=== PATIENT | female | born 1980 | race Caucasian/White ===

== ENCOUNTER → 2016-11-24 | Outpatient (CLI) | payer BC ==
[~2016-11-24] MED LIST: /BACL20TA; /BACL20TA OR; /DULO30CA; /LOR25TA PO; /QUET25TA; /ZOLP6ER; ACIPHEX; BUSP30TA; BUSP30TA OR; CALCGRA15 PO; CARA1SUS PO; CIPR750T5 PO; DEPO150I IM; DEPOPROVERA IM; DEPRO PROVERA IM; DETR4CAP; EFFE75CA75; EFFE75CA75 OR; FLAG500T PO; HYCE0.1S PO; HYDR12.56 PO; HYDR25TA6; HYDR25TA6 OR; ISOVUE-M 300 61% 15ML VIAL (Q9967) As Ordered ONE; KLON0.5T OR; KLON1TAB; KLON1TAB OR; LIDO5DIS; LIDO5DIS EX; LIDOCAINE 1% SDV INJ 30 ML VIAL As Ordered ONE; LISI10TA4 PO; LISI20TA PO; LISI20TA5; LISI20TA5 OR; LORT1TAB PO; MONOESSA PO; MORP15TA4 PO; MS C15TA5; MULTIVIT PO; NEUR100C OR; NORCO; NORCO PO; PRIL20CA PO; PRIN10TA PO; SEASONALE; SOMA350T PO; THERGRAN; VESICARE; VIT D 2000 PO; VITA-112 PO; VITA250L PO; XYZA5TAB PO; ZANT150T OR; [UNRECOGNIZED DRUG - CODE]; [UNRECOGNIZED DRUG - OTHER]; [UNRECOGNIZED DRUG - OTHER] TOP; lisinopril/hctz PO; methylPREDNISolone SUSP 40 MG/ML (DEPO-medrol) VIAL (J1030) As Ordered ONE
--- NOTE | 2016-11-24 15:29 | REP ---
Partial sacrum and coccyx series: Two views. History: Pain. Injection procedure. 12 seconds of fluoroscopy time is reported. Findings: A sequence of two fluoroscopically obtained last image hold spot radiographs of the coccyx and sacrum document needle position and contrast injection related to caudal epidural injection procedure. Signed by Randy Martinez MD 11/24/2016 04:34 P
--- NOTE | 2016-11-26 23:57 | ECWPNPC ---
PATIENT NAME: OCTAVIO HANLEY : 1980 GENDER: FEMALE VISIT DATE: 11/24/2016 DISCHARGE DATE: 11/24/16 1543 VISIT LOCKED DATE TIME: PHYSICIAN: DORA AGUILAR PHYSICIAN PAGER NO: TEXT TO [phone] RESOURCE: DORA AGUILAR REASON FOR APPOINTMENT 1. CAUDAL EPIDURAL HISTORY OF PRESENT ILLNESS HISTORY OF PRESENT ILLNESS: PAIN THE PATIENT DESCRIBES THE PAIN... FALL RISK SCREENING: SCREENING :NO FALLS IN THE PAST YEAR CURRENT MEDICATIONS TAKING VITAMIN D 2000 UNIT TABLET 5000UNITS ORALLY ONCE A DAY, NOTES: 11/24/16599 TAKING MULTIVITAMINS 1 TABLET DIRECTED ORALLY DAILY, NOTES: 11/24/16599 TAKING ELIDEL 1 % CREAM 1 APPLICATION A THIN FILM TO AFFECTED AREA EXTERNALLY TWICE A DAY NEEDED, NOTES: NONE LATELY TAKING DEPO-PROVERA 150 MG/ML SUSPENSION 1 INJECTION INTRAMUSCULAR ONCE EVERY 90 DAYS (ALFARO WOMAN), NOTES: DUE IN JANUARY TAKING CALCIUM CITRATE + D 315-250 MG-UNIT TABLET 1 TABLET ORALLY TWICE A DAY, NOTES: 11/24/16599 TAKING VITAMIN B12 100 MCG TABLET ORALLY DAILY, NOTES: 11/24/16599 TAKING VITAMIN C 500 MG CAPSULE ORALLY ONCE A DAY, NOTES: 11/24/16599 TAKING BACLOFEN 20 MG TABLET 1 TABLET WITH FOOD OR MILK ORALLY THREE TIMES A DAY, NOTES: 11/24/16 1130 TAKING NORCO 7.5-325 MG TABLET 1 TABLET NEEDED ORALLY 1-2 Q4-6H MDD6 3MOS SUPPLY CAT D CHRONIC PAIN, NOTES: 11/24/16 1330 1 TAB TAKING SOMA 350 MG TABLET 1 ORALLY TWICE DAILY NEEDED, NOTES: 11/20/16 TAKING KLONOPIN 0.5 MG TABLET 1 TABLET ORALLY/DO NOT FILL EARLY TWICE DAILY NEEDED FOR ANXIETY (MDD:2), NOTES: 11/23/16 2230 TAKING BUSPAR 30 MG TABLET 1 TAB ORALLY TWICE A DAY, NOTES: 11/24/16599 TAKING PRILOSEC 40 MG CAPSULE DELAYED RELEASE 1 CAPSULE ORALLY ONCE A DAY, NOTES: 11/24/16599 TAKING XYZAL 5 MG TABLET 1 TABLET IN THE EVENING ORALLY ONCE A DAY, NOTES: 11/24/16599 TAKING LISINOPRIL 10 MG TABLET 1 TABLET ORALLY ONCE A DAY, NOTES: 2/8/17 0600 TAKING VENLAFAXINE HCL 75 MG TABLET TAKE 2 TABLETS IN THE AM, AND 1 TABLET IN THE PM ORALLY DAILY, NOTES: 11/24/16 0600 NOT-TAKING TRIAMCINOLONE ACETONIDE 0.1 % CREAM 1 APPLICATION SPARINGLY TO AFFECTED AREA EXTERNALLY TWICE DAILY NEEDED MEDICATION LIST REVIEWED AND RECONCILED WITH THE PATIENT PAST MEDICAL HISTORY HTN OBESITY CP DEPRESSION/ANXIETY LOW BACK PAIN HYPERCHOLESTEROLEMIA GERD ALLERGIC RHINITIS SLEEP STUDY 10/29/11 NEG FOR SLEEP APNEA ALLERGIES CELEBREX: FACIAL SWELLING: ALLERGY NAPROXEN: FACIAL SWELLING: ALLERGY SOCIAL HISTORY GENERAL: TOBACCO USE ARE YOU A:NONSMOKER LEARNING BARRIERS / SPECIAL NEEDS ORIENTED TO PLAN OF CARE: PATIENT, PAIN MANAGEMENT PATIENT, ORIENTED TO PLAN OF CARE: PATIENT, PAIN MANAGEMENT PATIENT. NEW PATIENT PAIN DIARY TODAY'S VISITNOTES FROM 0-10, WHAT LEVEL IS YOUR PAIN TODAY?0 PAIN CLINIC PFS, CLERGY, PUBLIC HEALTH REFERRALS PFS REFERRAL NEEDED?NO CLERGY REFERRAL NEEDED?NO PUBLIC HEALTH REFERRAL NEEDED?NO WAS THE PROVIDER NOTIFIED OF ANY PERTINENT INFO?NO PFS REFERRAL NEEDED?NO CLERGY REFERRAL NEEDED?NO PUBLIC HEALTH REFERRAL NEEDED?NO WAS THE PROVIDER NOTIFIED OF ANY PERTINENT INFO?NO REVIEW OF SYSTEMS CONSTITUTIONAL: ANY CHANGE IN YOUR MEDICAL CONDITION? NO . CHILLS NO . FEVER NO . INFECTION: DO YOU HAVE NEW INFECTIONS? NO . DO YOU HAVE HISTORY OF MRSA? NO . MUSCULOSKELETAL: ANY NEW PATTERNS OF PAIN OR NUMBNESS? NO . GASTROENTEROLOGY: ANY NEW CHANGE IN BOWEL CONTROL? NO . GENITOURINARY: ANY NEW CHANGE IN BLADDER CONTROL? NO . IS THERE A CHANCE YOU COULD BE ? NO . HEMATOLOGY/LYMPH: DO YOU TAKE ANY BLOOD THINNERS? (FOR EXAMPLE- COUMADIN, PLAVIX, AGGRENOX, PLATEL, PRADAXA, OR XARELTO) NO . WHEN WAS YOUR LAST DOSE? DATE: TIME: . NEUROLOGY: HAVE YOU FALLEN IN THE PAST 6 MONTHS? NO . ANY NEW EXTREMITY NUMBNESS OR WEAKNESS? NO . CARDIOLOGY: DO YOU HAVE A PACEMAKER OR DEFIBRILLATOR? NO . RESPIRATORY: HAVE YOU BEEN SICK IN THE PAST WEEK? NO . FEVER NO . FLU LIKE SYMPTOMS? NO . COUGH NO . INTEGUMENTARY: DO YOU HAVE ANY RASHES OR OPEN SORES? NO . ALLERGIC/IMMUNO: ARE YOU ALLERGIC TO SHELLFISH OR IV DYE? NO . ANY NEW ALLERGIES? NO . PSYCHIATRIC: DO YOU HAVE THOUGHTS OF HURTING YOURSELF OR SOMEONE ELSE? NO . ARE YOU ABUSED, NEGLECTED, OR IN AN UNSAFE ENVIRONMENT? NO . ENDOCRINOLOGY: ARE YOU DIABETIC? NO . OTHER: DO YOU NEED ANY PRESCRIPTIONS? NO . IF YES, PLEASE LIST: ____ . ANY NEW PROBLEMS WITH YOUR MEDICATIONS? NO . WHEN DID YOU LAST EAT? ____11/24/16 0645 . WHEN DID YOU LAST DRINK? ____11/24/16 1150 . WHAT DID YOU LAST DRINK? ____COFFEE . NAME OF PERSON DRIVING YOU HOME? ____MOTHER . DO YOU HAVE ANY OTHER QUESTIONS OR CONCERNS NO . REVIEWED BY: PROVIDER: . VITAL SIGNS WT 228 LBS, HT 70 IN, BMI 32.71 INDEX, BP 133/71 MM HG, HR 85 /MIN, RR 16 /MIN, TEMP 97.4 F, OXYGEN SAT % 94%, NA INITIALS SC 14:07, REVIEWED BY: MLF. ASSESSMENTS POSTLAMINECTOMY SYNDROME, NOT ELSEWHERE CLASSIFIED - M96.1 (PRIMARY) PROCEDURES PN CAUDAL EPIDURALS PRE PROCEDURE DIAGNOSIS LUMBAR POST LAMINECTOMY PAIN SYNDROME POST PROCEDURE DIAGNOSIS LUMBAR POST LAMINECTOMY PAIN SYNDROME PROCEDURE CAUDAL EPIDURAL STEROID INJECTION UNDER FLUOROSCOPIC GUIDANCE SURGEON DR. DORA AGUILAR SEISMIC INTERPRETER NONE ANESTHESIA LOCAL PRE PROCEDURE NOTE THE PATIENT HAS HISTORY OF CHRONIC LOW BACK PAIN. I EVALUATE THE PATIENT AND REVIEWED THE CHART. I WENT OVER THE RISKS, ALTERNATIVES, AND BENEFITS ASSOCIATED WITH THIS PROCEDURE. THE PATIENT WOULD LIKE TO PROCEED AND GIVE CONSENT TO PERFORMED THE PROCEDURE. THE PATIENT DENIES UNEXPLAINABLE WEIGHT LOSS, FEVER, CHILLS, OR NEW CHANGES IN URINARY OR BOWEL CONTROL DESCRIPTION OF PROCEDURE THE PATIENT WAS BROUGHT TO THE PROCEDURE ROOM AND PLACED IN THE PRONE POSITION. THE LUMBOSACRAL AREA WAS CLEANED WITH BETADINE SOLUTION AND DRAPED ASEPTICALLY. THE PROCEDURE WAS DONE UNDER STERILE CONDITIONS. I CHECKED LATERALITY AND THE LEVEL WHERE THE PROCEDURE WAS GOING TO BE PERFORMED WITH THE PATIENT AND THE SUPPORTING STAFF AT THE MOMENT OF THE TIME OUT IN THE PROCEDURE ROOM. UNDER FLUOROSCOPIC GUIDANCE, THE TARGET POINT WAS SELECTED AT THE EPIDURAL SPACE BELOW THE SACROCOCCYGEAL LIGAMENT. LIDOCAINE 0.5% WAS USE TO NUMB THE SKIN AND THE SUBCUTANEOUS TISSUE BELOW IT. AN EPIDURAL TUOHY NEEDLE, 17-GAUGE, WAS ADVANCED UNDER FLUOROSCOPIC GUIDANCE AND FOLLOWING PATIENT FEEDBACK UNTIL THE EPIDURAL SPACE WAS REACHED 6 CM DEEP INTO THE SKIN BY THE LOSS OF RESISTANCE TECHNIQUE. ISOVUE M DYE 30%, 0.25 ML, WAS INJECTED SHOWING ADEQUATE SPREAD OF THE DYE. THEN, A SOLUTION OF 6 ML OF NORMAL SALINE WITH DEPO-MEDROL 60 MG WAS INJECTED SLOWLY FOLLOWING THE PATIENT FEEDBACK. THERE WAS NO EVIDENCE OF BLOOD, PARESTHESIA OR CEREBROSPINAL FLUID DURING THE PROCEDURE. THE PATIENT WAS SENT TO THE RECOVERY ROOM. THE PATIENT WAS MOVING THE EXTREMITIES AND DOING WELL. THERE WAS NO COMPLICATION DURING THE PROCEDURE. FLUOROSCOPY TIME WAS 12 SECONDS POST PROCEDURE NOTE THE PATIENT WILL BE SEEN IN A FOLLOW UP IN THE NEXT FEW WEEKS. INSTRUCTIONS WERE GIVEN, QUESTIONS WERE ANSWERED, AND THE PATIENT EXPRESSED UNDERSTANDING AND AGREES WITH THE PLAN. I, NICOLE MANN, DOCUMENTED THE ABOVE INFORMATION ACTING A SCRIBE FOR DR. AGUILAR. I, DR. AGUILAR, HAVE REVIEWED THE ABOVE DOCUMENT, SCRIBED BY NICOLE MANN, AND I VERIFY THAT IT IS ACCURATE DIAGNOSTIC IMAGING [facility] FLUORO GUIDE SPINE INJECTION (PAIN)[id number] PROCEDURE CODES 44640 LUMBAR/SACRAL W/ IMAGING 6045F RADXPS IN END [id number] PXD FOLLOW UP 3 WEEKS ELECTRONICALLY SIGNED BY DORA AGUILAR MD ON 11/26/2016 AT 01:38 PM EST DISCLAIMER : THIS IS A VISIT SUMMARY EXTRACTED FROM THE [employer] CHART. IT IS NOT A COPY OF THE [employer] PROGRESS NOTE. MTDD
== END ==
LOC: M PAIN 14:00
PROVIDERS: ATTEND Anesthesiology
DX: G89.29 Other chronic pain (principal); M96.1 Postlaminectomy syndrome, not elsewhere classified; M54.5 Low back pain; G80.9 Cerebral palsy, unspecified; F32.9 Major depressive disorder, single episode, unspecified; K21.9 Gastro-esophageal reflux disease without esophagitis; F41.9 Anxiety disorder, unspecified; I10 Essential (primary) hypertension; E78.00 Pure hypercholesterolemia, unspecified; E66.9 Obesity, unspecified; Z68.32 Body mass index [BMI] 32.0-32.9, adult; J30.89 Other allergic rhinitis; Z88.8 Allergy status to other drugs, medicaments and biological substances; Z79.891 Long term (current) use of opiate analgesic; Z79.899 Other long term (current) drug therapy
CPT/HCPCS: 62323; J1030; Q9967

== ENCOUNTER → 2016-12-22 | Outpatient (CLI) | payer BC ==
[~2016-12-22] MED LIST changes: -ISOVUE-M 300 61% 15ML VIAL (Q9967) As Ordered ONE; -LIDOCAINE 1% SDV INJ 30 ML VIAL As Ordered ONE; -methylPREDNISolone SUSP 40 MG/ML (DEPO-medrol) VIAL (J1030) As Ordered ONE
--- NOTE | 2016-12-22 23:43 | ECWPNPC ---
PATIENT NAME: OCTAVIO HANLEY : 1980 GENDER: FEMALE VISIT DATE: 12/22/2016 DISCHARGE DATE: 12/22/16 0945 VISIT LOCKED DATE TIME: PHYSICIAN: LILLY FALCON PHYSICIAN PAGER NO: TEXT TO [phone] RESOURCE: LILLY FALCON REASON FOR APPOINTMENT 1. POST CAUDAL F/UP HISTORY OF PRESENT ILLNESS HISTORY OF PRESENT ILLNESS: PAIN THE PATIENT DESCRIBES THE PAIN... THE PATIENT DESCRIBES THE PAIN... HERE FOR POST PROCEDURE F/U.HAD CAUDAL EPIDURAL 11-24-16.REPORTS 75% IMPROVEMENT IN PAIN X3 WKS. THAT CONTINUES TODAY. RATING PAIN VAS 4/10.HAS RESPONDED TO CAUDAL EPIDURAL.USES HYDROCODONE 7.5/325 Q4H PRN PAIN ,BACLOFEN 20MG TID AND SOMA 350MG PRN WITH GOOD EFFECT.DESCRIBES PAIN INTERMITTENT SHARP PAIN. FALL RISK SCREENING: SCREENING :NO FALLS IN THE PAST YEAR CURRENT MEDICATIONS TAKING VITAMIN D 2000 UNIT TABLET 5000UNITS ORALLY ONCE A DAY TAKING MULTIVITAMINS 1 TABLET DIRECTED ORALLY DAILY TAKING ELIDEL 1 % CREAM 1 APPLICATION A THIN FILM TO AFFECTED AREA EXTERNALLY TWICE A DAY NEEDED TAKING DEPO-PROVERA 150 MG/ML SUSPENSION 1 INJECTION INTRAMUSCULAR ONCE EVERY 90 DAYS (ALFARO WOMAN) TAKING CALCIUM CITRATE + D 315-250 MG-UNIT TABLET 1 TABLET ORALLY TWICE A DAY TAKING VITAMIN B12 100 MCG TABLET ORALLY DAILY TAKING VITAMIN C 500 MG CAPSULE ORALLY ONCE A DAY TAKING BACLOFEN 20 MG TABLET 1 TABLET WITH FOOD OR MILK ORALLY THREE TIMES A DAY TAKING NORCO 7.5-325 MG TABLET 1 TABLET NEEDED ORALLY 1-2 Q4-6H MDD6 3MOS SUPPLY CAT D CHRONIC PAIN TAKING SOMA 350 MG TABLET 1 ORALLY TWICE DAILY NEEDED TAKING BUSPAR 30 MG TABLET 1 TAB ORALLY TWICE A DAY TAKING PRILOSEC 40 MG CAPSULE DELAYED RELEASE 1 CAPSULE ORALLY ONCE A DAY TAKING XYZAL 5 MG TABLET 1 TABLET IN THE EVENING ORALLY ONCE A DAY TAKING LISINOPRIL 10 MG TABLET 1 TABLET ORALLY ONCE A DAY TAKING VENLAFAXINE HCL 75 MG TABLET TAKE 2 TABLETS IN THE AM, AND 1 TABLET IN THE PM ORALLY DAILY TAKING KLONOPIN 0.5 MG TABLET 1 TABLET ORALLY/DO NOT FILL EARLY TWICE DAILY NEEDED FOR ANXIETY (MDD:2) NOT-TAKING TRIAMCINOLONE ACETONIDE 0.1 % CREAM 1 APPLICATION SPARINGLY TO AFFECTED AREA EXTERNALLY TWICE DAILY NEEDED MEDICATION LIST REVIEWED AND RECONCILED WITH THE PATIENT PAST MEDICAL HISTORY HTN OBESITY CP DEPRESSION/ANXIETY LOW BACK PAIN HYPERCHOLESTEROLEMIA GERD ALLERGIC RHINITIS SLEEP STUDY 10/29/11 NEG FOR SLEEP APNEA ALLERGIES CELEBREX: FACIAL SWELLING: ALLERGY NAPROXEN: FACIAL SWELLING: ALLERGY SOCIAL HISTORY GENERAL: TOBACCO USE ARE YOU A:NONSMOKER LEARNING BARRIERS / SPECIAL NEEDS ORIENTED TO PLAN OF CARE: PATIENT, PAIN MANAGEMENT PATIENT, ORIENTED TO PLAN OF CARE: PATIENT, PAIN MANAGEMENT PATIENT. NEW PATIENT PAIN DIARY TODAY'S VISITNOTES FROM 0-10, WHAT LEVEL IS YOUR PAIN TODAY?0 PAIN CLINIC PFS, CLERGY, PUBLIC HEALTH REFERRALS PFS REFERRAL NEEDED?NO CLERGY REFERRAL NEEDED?NO PUBLIC HEALTH REFERRAL NEEDED?NO WAS THE PROVIDER NOTIFIED OF ANY PERTINENT INFO?NO PFS REFERRAL NEEDED?NO CLERGY REFERRAL NEEDED?NO PUBLIC HEALTH REFERRAL NEEDED?NO WAS THE PROVIDER NOTIFIED OF ANY PERTINENT INFO?NO REVIEW OF SYSTEMS CONSTITUTIONAL: ANY CHANGE IN YOUR MEDICAL CONDITION? NO . RECENT ILLNESS DENIES . CHILLS NO . FEVER NO . WEIGHT LOSS DENIES . INFECTION: DO YOU HAVE NEW INFECTIONS? NO . DO YOU HAVE HISTORY OF MRSA? NO . MUSCULOSKELETAL: ANY NEW PATTERNS OF PAIN OR NUMBNESS? NO . GASTROENTEROLOGY: ANY NEW CHANGE IN BOWEL CONTROL? NO . GENITOURINARY: ANY NEW CHANGE IN BLADDER CONTROL? NO . IS THERE A CHANCE YOU COULD BE ? NO . HEMATOLOGY/LYMPH: DO YOU TAKE ANY BLOOD THINNERS? (FOR EXAMPLE- COUMADIN, PLAVIX, AGGRENOX, PLATEL, PRADAXA, OR XARELTO) NO . WHEN WAS YOUR LAST DOSE? DATE: TIME: . NEUROLOGY: HAVE YOU FALLEN IN THE PAST 6 MONTHS? NO . ANY NEW EXTREMITY NUMBNESS OR WEAKNESS? NO . CARDIOLOGY: DO YOU HAVE A PACEMAKER OR DEFIBRILLATOR? NO . CHEST PAIN DENIES . SHORTNESS OF BREATH DENIES . RESPIRATORY: HAVE YOU BEEN SICK IN THE PAST WEEK? NO . FEVER NO . FLU LIKE SYMPTOMS? NO . COUGH NO, DENIES . SHORTNESS OF BREATH DENIES . INTEGUMENTARY: DO YOU HAVE ANY RASHES OR OPEN SORES? NO . ALLERGIC/IMMUNO: ARE YOU ALLERGIC TO SHELLFISH OR IV DYE? NO . ANY NEW ALLERGIES? NO . PSYCHIATRIC: DO YOU HAVE THOUGHTS OF HURTING YOURSELF OR SOMEONE ELSE? NO . ARE YOU ABUSED, NEGLECTED, OR IN AN UNSAFE ENVIRONMENT? NO . ENDOCRINOLOGY: ARE YOU DIABETIC? NO . OTHER: DO YOU NEED ANY PRESCRIPTIONS? YES NORCO , BACLOFEN AND SOMA . IF YES, PLEASE LIST: ____ . ANY NEW PROBLEMS WITH YOUR MEDICATIONS? NO . WHEN DID YOU LAST EAT? ____ . WHEN DID YOU LAST DRINK? ____ . WHAT DID YOU LAST DRINK? ____ . NAME OF PERSON DRIVING YOU HOME? ____ . DO YOU HAVE ANY OTHER QUESTIONS OR CONCERNS NO . REVIEWED BY: PROVIDER: LILLY AGUILAR . VITAL SIGNS WT 221 LBS, HT 70 IN, BMI 31.71 INDEX, BP 140/83 MM HG, HR 91 /MIN, RR 16 /MIN, TEMP 98.2 F, OXYGEN SAT % 96, NA INITIALS TL 0906. EXAMINATION GENERAL EXAMINATION: LUNGS:LUNG SOUNDS ARE CLEAR. HEART:HEART RATE REGULAR. MUSCULOSKELETAL:*, MUSCLE STRENGTH TESTING 5/5 BLE.PARATHESIAS TO LIGHT TOUCH RIGHT LEG.NORMAL SENSATION LIGHT TOUCH LEFT LEG., PALPATION: NEGATIVE FOR PAIN OVER L/S SPINE. NEGATIVE FOR PAIN OVER L/S PARASPINALS. DIAGNOSTIC: . ASSESSMENTS POST LAMINECTOMY SYNDROME - M96.1 (PRIMARY) SACROILIAC DYSFUNCTION - M53.3 CHRONIC PRESCRIPTION OPIATE USE - Z79.899 TREATMENT POST LAMINECTOMY SYNDROME REFILL NORCO TABLET, 7.5-325 MG, 1 TABLET NEEDED, ORALLY, 1-2 Q4-6H MDD6 3MOS SUPPLY CAT D CHRONIC PAIN, 90 DAY(S), 540, REFILLS 0 REFILL SOMA TABLET, 350 MG, 1, ORALLY, BID PRN MDD2 3MOS SUPPLY CATD CHRONIC PAIN, 90 DAY(S), 180, REFILLS 0 REFILL BACLOFEN TABLET, 20 MG, 1 TABLET WITH FOOD OR MILK, ORALLY, THREE TIMES A DAY, 90 DAY(S), 270 TABLET, REFILLS 0 CAUDAL/LUMBAR EPIDURALLILLY FALCON 12/22/2016 9:37:35 AM > CAUDAL EPIDURAL NOTES: ISTOP REGISTRY REVIEWED AND DEMNOSTRATES COMPLLIANCE. BRINGS IN MEDICATIONS WHICH IS APPROPRIATE FOR WHAT WAS DISPENSED. RECENT URINE TOXICOLOGY REVIEWED. NO UNAUTHORIZED MEDICATIONS. NO ILLICIT SUBSTANCES AND PRESCRIBED MEDICATIONS WERE PRESENT. , RISKS AND BENEFITS OF NARCOTIC/OPIOD MEDICATIONS WERE REVIEWED WITH PATIENT - THIS INCLUDES BUT IS NOT LIMITED TO RISK OF DEPENDANCE/DEVELOPMENT OF ADDICTION, MOOD DISTURBANCE AND DEPRESSION, OSTEOPOROSIS, HORMONAL AND LABIDAL CHANGES, RESPIRATORY DEPRESSION AND . PATIENT IS ADVISED NOT TO DRIVE WHILE ON THESE MEDICATIONS. PROCEDURE CODES FA211 ESTABILISHED PATIENT [facility] FAC[facility] CHARGE DISPOSITION & COMMUNICATION FOLLOW UP 2WK POST (REASON: CAUDAL EPIDURAL) ELECTRONICALLY SIGNED BY JEFF WHITTINGTON ON 12/22/2016 AT 01:14 PM EST DISCLAIMER : THIS IS A VISIT SUMMARY EXTRACTED FROM THE [employer] CHART. IT IS NOT A COPY OF THE [employer] PROGRESS NOTE. ANNMARIE
== END ==
LOC: M PAIN 09:00
PROVIDERS: ATTEND Nurse Practitioner Family
DX: Z09 Encounter for follow-up examination after completed treatment for conditions other than malignant neoplasm (principal); G89.29 Other chronic pain; M96.1 Postlaminectomy syndrome, not elsewhere classified; M53.3 Sacrococcygeal disorders, not elsewhere classified; I10 Essential (primary) hypertension; E66.9 Obesity, unspecified; Z68.31 Body mass index [BMI] 31.0-31.9, adult; G80.9 Cerebral palsy, unspecified; F32.9 Major depressive disorder, single episode, unspecified; F41.9 Anxiety disorder, unspecified; E78.00 Pure hypercholesterolemia, unspecified; K21.9 Gastro-esophageal reflux disease without esophagitis; J30.89 Other allergic rhinitis; Z88.8 Allergy status to other drugs, medicaments and biological substances; Z79.891 Long term (current) use of opiate analgesic; Z79.899 Other long term (current) drug therapy

== ENCOUNTER → 2017-02-16 | Outpatient (CLI) | payer BC ==
[~2017-02-16] MED LIST changes: +BUPIVACAINE HCL 0.25% 30 ML VIAL As Ordered ONE; +ISOVUE-M 300 61% 15ML VIAL (Q9967) As Ordered ONE; +LIDOCAINE 1% SDV INJ 30 ML VIAL As Ordered ONE; +TRIAMCINOLONE ACETONIDE SUSP 40 MG/ML VIAL (J3301) As Ordered ONE
--- NOTE | 2017-02-16 15:48 | REP ---
FLUOROSCOPIC GUIDANCE: The images were reviewed with Dr. Burrows. The patient has a history of low back pain. The portable C-arm was provided in the OR for Dr. English for fluoroscopic guidance. Two intraoperative fluoroscopic spot films were obtained for needle placement verification for bilateral SI joint injection. The films are on the PACs system and are available for review. 29 seconds of fluoroscopic time was utilized for this procedure. Reviewed by VIDAL Maria 02/16/2017 04:16 PEdited and Signed by Pankaj Burrows MD 02/16/2017 04:42 P
--- NOTE | 2017-02-20 23:51 | ECWPNPC ---
PATIENT NAME: OCTAVIO HANLEY : 1980 GENDER: FEMALE VISIT DATE: 02/16/2017 DISCHARGE DATE: 02/16/17 1120 VISIT LOCKED DATE TIME: PHYSICIAN: DORA AGUILAR PHYSICIAN PAGER NO: TEXT TO [phone] RESOURCE: DORA AGUILAR REASON FOR APPOINTMENT 1. CAUDAL HISTORY OF PRESENT ILLNESS HISTORY OF PRESENT ILLNESS: PAIN THE PATIENT DESCRIBES THE PAIN... FALL RISK SCREENING: SCREENING :NO FALLS IN THE PAST YEAR CURRENT MEDICATIONS TAKING VITAMIN D 2000 UNIT TABLET 5000UNITS ORALLY ONCE A DAY, NOTES: 02-16-17599 TAKING MULTIVITAMINS 1 TABLET DIRECTED ORALLY DAILY, NOTES: 02-16-17599 TAKING ELIDEL 1 % CREAM 1 APPLICATION A THIN FILM TO AFFECTED AREA EXTERNALLY TWICE A DAY NEEDED, NOTES: NONE TAKING DEPO-PROVERA 150 MG/ML SUSPENSION 1 INJECTION INTRAMUSCULAR ONCE EVERY 90 DAYS (ALFARO WOMAN), NOTES: DUE IN MARCH TAKING CALCIUM CITRATE + D 315-250 MG-UNIT TABLET 1 TABLET ORALLY TWICE A DAY, NOTES: 02-16-17599 TAKING VITAMIN B12 100 MCG TABLET ORALLY DAILY, NOTES: 02-16-17599 TAKING VITAMIN C 500 MG CAPSULE ORALLY ONCE A DAY, NOTES: 02-16-17599 TAKING BUSPAR 30 MG TABLET 1 TAB ORALLY TWICE A DAY, NOTES: 02-16-17599 TAKING PRILOSEC 40 MG CAPSULE DELAYED RELEASE 1 CAPSULE ORALLY ONCE A DAY, NOTES: 02-15-172199 TAKING XYZAL 5 MG TABLET 1 TABLET IN THE EVENING ORALLY ONCE A DAY, NOTES: 02-15-172199 TAKING LISINOPRIL 10 MG TABLET 1 TABLET ORALLY ONCE A DAY, NOTES: 02-16-17599 TAKING VENLAFAXINE HCL 75 MG TABLET TAKE 2 TABLETS IN THE AM, AND 1 TABLET IN THE PM ORALLY DAILY, NOTES: 02-16-17599 TAKING NORCO 7.5-325 MG TABLET 1 TABLET NEEDED ORALLY 1-2 Q4-6H MDD6 3MOS SUPPLY CAT D CHRONIC PAIN, NOTES: 02-16-17829 TAKING SOMA 350 MG TABLET 1 ORALLY BID PRN MDD2 3MOS SUPPLY CATD CHRONIC PAIN, NOTES: NONE RECENT TAKING BACLOFEN 20 MG TABLET 1 TABLET WITH FOOD OR MILK ORALLY THREE TIMES A DAY, NOTES: 02-16-17599 TAKING KLONOPIN 0.5 MG TABLET 1 TABLET ORALLY/DO NOT FILL EARLY TWICE DAILY NEEDED FOR ANXIETY (MDD:2), NOTES: 02-15-172199 NOT-TAKING TRIAMCINOLONE ACETONIDE 0.1 % CREAM 1 APPLICATION SPARINGLY TO AFFECTED AREA EXTERNALLY TWICE DAILY NEEDED MEDICATION LIST REVIEWED AND RECONCILED WITH THE PATIENT PAST MEDICAL HISTORY HTN OBESITY CP DEPRESSION/ANXIETY LOW BACK PAIN HYPERCHOLESTEROLEMIA GERD ALLERGIC RHINITIS SLEEP STUDY 10/29/11 NEG FOR SLEEP APNEA ALLERGIES CELEBREX: FACIAL SWELLING: ALLERGY NAPROXEN: FACIAL SWELLING: ALLERGY REVIEW OF SYSTEMS CONSTITUTIONAL: ANY CHANGE IN YOUR MEDICAL CONDITION? NO . CHILLS NO . FEVER NO . INFECTION: DO YOU HAVE NEW INFECTIONS? NO . DO YOU HAVE HISTORY OF MRSA? NO . MUSCULOSKELETAL: ANY NEW PATTERNS OF PAIN OR NUMBNESS? NO . GASTROENTEROLOGY: ANY NEW CHANGE IN BOWEL CONTROL? NO . GENITOURINARY: ANY NEW CHANGE IN BLADDER CONTROL? NO . IS THERE A CHANCE YOU COULD BE ? NO . HEMATOLOGY/LYMPH: DO YOU TAKE ANY BLOOD THINNERS? (FOR EXAMPLE- COUMADIN, PLAVIX, AGGRENOX, PLATEL, PRADAXA, OR XARELTO) NO . WHEN WAS YOUR LAST DOSE? DATE: TIME: . NEUROLOGY: HAVE YOU FALLEN IN THE PAST 6 MONTHS? NO . ANY NEW EXTREMITY NUMBNESS OR WEAKNESS? NO . CARDIOLOGY: DO YOU HAVE A PACEMAKER OR DEFIBRILLATOR? NO . RESPIRATORY: HAVE YOU BEEN SICK IN THE PAST WEEK? NO . FEVER NO . FLU LIKE SYMPTOMS? NO . COUGH NO . INTEGUMENTARY: DO YOU HAVE ANY RASHES OR OPEN SORES? NO . ALLERGIC/IMMUNO: ARE YOU ALLERGIC TO SHELLFISH OR IV DYE? NO . ANY NEW ALLERGIES? NO . PSYCHIATRIC: DO YOU HAVE THOUGHTS OF HURTING YOURSELF OR SOMEONE ELSE? NO . ARE YOU ABUSED, NEGLECTED, OR IN AN UNSAFE ENVIRONMENT? NO . ENDOCRINOLOGY: ARE YOU DIABETIC? NO . OTHER: DO YOU NEED ANY PRESCRIPTIONS? NO . IF YES, PLEASE LIST: ____ . ANY NEW PROBLEMS WITH YOUR MEDICATIONS? NO . WHEN DID YOU LAST EAT? 02-15-17 7:45 PM . WHEN DID YOU LAST DRINK? 02-16-17 5:50 AM . WHAT DID YOU LAST DRINK? WATER WITH MEDS . NAME OF PERSON DRIVING YOU HOME? PAOLA-SHERI- MOTHER . DO YOU HAVE ANY OTHER QUESTIONS OR CONCERNS , &QUOT;TODAY I AM EXPERIENCING &QUOT;OLD WOMAN&QUOT; BACK SYMPTOMS ALONG WITH RIGHT HIP AND RIGHT SIATIC ISSUES. NOT SURE IF BILATERAL SIJS VERSUS CAUDAL WOULD BE BENEFICIAL?&QUOT; . REVIEWED BY: PROVIDER: . VITAL SIGNS WT 226.0 LBS, HT 70 IN, BMI 32.42 INDEX, BP 152/81 MM HG, HR 92 /MIN, RR 18 /MIN, TEMP 97.9 F, OXYGEN SAT % 96, NA INITIALS AW 0908, REVIEWED BY: CM. ASSESSMENTS SACROILIITIS, NOT ELSEWHERE CLASSIFIED - M46.1 (PRIMARY) PROCEDURES PN SI PRE PROCEDURE DIAGNOSIS SACROILIITIS, SACROILIAC JOINT DYSFUNCTION POST PROCEDURE DIAGNOSIS SACROILIITIS, SACROILIAC JOINT DYSFUNCTION PROCEDURE BILATERAL SACROILIAC JOINT BLOCK SURGEON DR. DORA AGUILAR SOFTWARE QUALITY ASSURANCE ANALYST NONE ANESTHESIA LOCAL PRE PROCEDURE NOTE PATIENT WITH HISTORY OF CHRONIC LOW BACK PAIN. I EVALUATED THE PATIENT AND REVIEWED THE CHART. I WENT OVER THE RISKS, ALTERNATIVES, AND BENEFITS ASSOCIATED WITH THIS PROCEDURE. THE PATIENT WOULD LIKE TO PROCEED AND GAVE CONSENT TO PERFORM THE PROCEDURE. THE PATIENT DENIES UNEXPLAINABLE WEIGHT LOSS, FEVER, CHILLS, OR NEW CHANGES IN URINARY OR BOWEL CONTROL DESCRIPTION OF PROCEDURE THE PATIENT WAS BROUGHT TO THE PROCEDURE ROOM AND PLACED IN THE PRONE POSITION. THE LUMBOSACRAL AREA WAS CLEANED WITH CHLORAPREP SOLUTION AND DRAPED ASEPTICALLY. THE PROCEDURE WAS DONE UNDER STERILE CONDITIONS. I CHECKED LATERALITY AND THE LEVEL WHERE THE PROCEDURE WAS GOING TO BE PERFORMED WITH THE PATIENT AND THE SUPPORTING STAFF AT THE MOMENT OF THE TIME OUT IN THE PROCEDURE ROOM. UNDER FLUOROSCOPIC GUIDANCE, TARGET POINT WAS SELECTED AT THE LOWER BORDER OF THE RIGHT AND LEFT SACROILIAC JOINT. TARGET POINT WAS SELECTED AFTER MEDIAL ROTATION AND TILT OF THE MAGNIFIER OF THE C-ARM. LIDOCAINE WAS USED TO NUMB THE SKIN AND SUBCUTANEOUS TISSUE BELOW IT. A SPINAL NEEDLE, 22-GAUGE, WAS ADVANCED UNDER FLUOROSCOPIC GUIDANCE AND FOLLOWING PATIENT FEEDBACK UNTIL THE TARGET AREA WAS TOUCHED. THE POSITION OF THE NEEDLE WAS VERIFIED WITH AP AND LATERAL VIEWS. AFTER PROPER POSITION OF THE NEEDLE WAS ACHIEVED, ISOVUE M DYE 30%, 0.25 ML, WAS INJECTED SHOWING SPREAD OF THE DYE. THEN, A SOLUTION OF 20 MG OF KENALOG WAS INJECTED IN RIGHT JOINT WITH 3 ML OF BUPIVACAINE 0.125%. THERE WAS NO EVIDENCE OF BLOOD, PARESTHESIA OR CEREBROSPINAL FLUID DURING THE PROCEDURE. THE PATIENT WAS SENT TO THE RECOVERY ROOM. THE PATIENT WAS MOVING THE EXTREMITIES AND DOING WELL. THERE WAS NO COMPLICATION DURING THE PROCEDURE. FLUOROSCOPY TIME WAS 29 SECONDS POST PROCEDURE NOTE THE PATIENT WILL BE SEEN IN A FOLLOW UP IN THE NEXT FEW WEEKS. INSTRUCTIONS WERE GIVEN, QUESTIONS WERE ANSWERED, AND THE PATIENT EXPRESSED UNDERSTANDING AND AGREED WITH THE PLAN. I, NICOLE MANN, DOCUMENTED THE ABOVE INFORMATION ACTING A SCRIBE FOR DR. AGUILAR. I HAVE REVIEWED THE ABOVE DOCUMENT, WRITTEN BY NICOLE BRITO AND I VERIFY THAT IT IS [facility] DI[facility]NOST[facility] IMAG[facility] FLUORO GUIDANCE (PAIN)[id number] PROCEDURE CODES 03690 INJECT SACROILIAC JOINT 6045F RADXPS IN END [id number] PXD DISPOSITION & COMMUNICATION FOLLOW UP 3 WEEKS ELECTRONICALLY SIGNED BY DORA AGUILAR MD ON 02/20/2017 AT 04:58 PM EDT DISCLAIMER : THIS IS A VISIT SUMMARY EXTRACTED FROM THE [employer] CHART. IT IS NOT A COPY OF THE [employer] PROGRESS NOTE. MTDJake
== END ==
LOC: M PAIN 09:00
PROVIDERS: ATTEND Anesthesiology
DX: G89.29 Other chronic pain (principal); M46.1 Sacroiliitis, not elsewhere classified; I10 Essential (primary) hypertension; E66.9 Obesity, unspecified; F32.9 Major depressive disorder, single episode, unspecified; F41.9 Anxiety disorder, unspecified; M54.5 Low back pain; E78.00 Pure hypercholesterolemia, unspecified; K21.9 Gastro-esophageal reflux disease without esophagitis; J30.9 Allergic rhinitis, unspecified; Z88.6 Allergy status to analgesic agent; Z88.8 Allergy status to other drugs, medicaments and biological substances; Z79.891 Long term (current) use of opiate analgesic; Z79.899 Other long term (current) drug therapy
CPT/HCPCS: G0260; J3301; Q9967

== ENCOUNTER → 2017-03-22 | Outpatient (CLI) | payer BC ==
[~2017-03-22] MED LIST changes: -BUPIVACAINE HCL 0.25% 30 ML VIAL As Ordered ONE; -ISOVUE-M 300 61% 15ML VIAL (Q9967) As Ordered ONE; -LIDOCAINE 1% SDV INJ 30 ML VIAL As Ordered ONE; -TRIAMCINOLONE ACETONIDE SUSP 40 MG/ML VIAL (J3301) As Ordered ONE
--- NOTE | 2017-03-23 00:09 | ECWPNPC ---
PATIENT NAME: OCTAVIO HANLEY : 1980 GENDER: FEMALE VISIT DATE: 03/22/2017 DISCHARGE DATE: 03/22/17 1026 VISIT LOCKED DATE TIME: PHYSICIAN: LILLY FALCON PHYSICIAN PAGER NO: TEXT RP [phone] RESOURCE: LILLY FALCON REASON FOR APPOINTMENT 1. POST PROCEDURE HISTORY OF PRESENT ILLNESS HISTORY OF PRESENT ILLNESS: PAIN THE PATIENT DESCRIBES THE PAIN... THE PATIENT DESCRIBES THE PAIN... THE PATIENT DESCRIBES THE PAIN... HERE FOR POST PROCEDURE F/U.HAD BILAT. SIJ 02-16-17.REPORTS 75% IMPROVEMENT IN PAIN X3 WKS. THAT CONTINUES TODAY. RATING PAIN VAS 5/10..USES HYDROCODONE 7.5/325 Q4H PRN PAIN ,BACLOFEN 20MG TID AND SOMA 350MG PRN WITH GOOD EFFECT.DESCRIBES PAIN INTERMITTENT SHARP PAIN. FALL RISK SCREENING: SCREENING :NO FALLS IN THE PAST YEAR CURRENT MEDICATIONS TAKING VITAMIN D 2000 UNIT TABLET 5000UNITS ORALLY ONCE A DAY TAKING MULTIVITAMINS 1 TABLET DIRECTED ORALLY DAILY TAKING ELIDEL 1 % CREAM 1 APPLICATION A THIN FILM TO AFFECTED AREA EXTERNALLY TWICE A DAY NEEDED TAKING DEPO-PROVERA 150 MG/ML SUSPENSION 1 INJECTION INTRAMUSCULAR ONCE EVERY 90 DAYS ([employer] WOMAN) TAKING CALCIUM CITRATE + D 315-250 MG-UNIT TABLET 1 TABLET ORALLY TWICE A DAY TAKING VITAMIN B12 100 MCG TABLET ORALLY DAILY TAKING VITAMIN C 500 MG CAPSULE ORALLY ONCE A DAY TAKING BUSPAR 30 MG TABLET 1 TAB ORALLY TWICE A DAY TAKING PRILOSEC 40 MG CAPSULE DELAYED RELEASE 1 CAPSULE ORALLY ONCE A DAY TAKING VENLAFAXINE HCL 75 MG TABLET TAKE 2 TABLETS IN THE AM, AND 1 TABLET IN THE PM ORALLY DAILY TAKING NORCO 7.5-325 MG TABLET 1 TABLET NEEDED ORALLY 1-2 Q4-6H MDD6 3MOS SUPPLY CAT D CHRONIC PAIN TAKING SOMA 350 MG TABLET 1 ORALLY BID PRN MDD2 3MOS SUPPLY CATD CHRONIC PAIN TAKING BACLOFEN 20 MG TABLET 1 TABLET WITH FOOD OR MILK ORALLY THREE TIMES A DAY TAKING LISINOPRIL 10 MG TABLET 1 TABLET ORALLY ONCE A DAY TAKING XYZAL 5 MG TABLET 1 TABLET IN THE EVENING ORALLY ONCE A DAY TAKING KLONOPIN 0.5 MG TABLET 1 TABLET ORALLY/DO NOT FILL EARLY TWICE DAILY NEEDED FOR ANXIETY (MDD:2) NOT-TAKING TRIAMCINOLONE ACETONIDE 0.1 % CREAM 1 APPLICATION SPARINGLY TO AFFECTED AREA EXTERNALLY TWICE DAILY NEEDED MEDICATION LIST REVIEWED AND RECONCILED WITH THE PATIENT PAST MEDICAL HISTORY HTN OBESITY CP DEPRESSION/ANXIETY LOW BACK PAIN HYPERCHOLESTEROLEMIA GERD ALLERGIC RHINITIS SLEEP STUDY 10/29/11 NEG FOR SLEEP APNEA ALLERGIES CELEBREX: FACIAL SWELLING: ALLERGY NAPROXEN: FACIAL SWELLING: ALLERGY SURGICAL HISTORY R HEEL CORD LENGTHENING 1984 ADNOIDECTOMY R BUNIONECTOMY X 2 1996 LUMBAR LAMINECTOMY 2004 LASER DISCECTOMY, L4-5 2005 LUMBAR LAMINECTOMY/DISCECTOMY 2009 " ", L2-3 2010 LAPROSCOPIC BAND (REALIZE BAND) - DR. KEEN 12/15/11 CEREBRAL PALSY RECONSTRUCTION RT HAND- [facility]TH[facility] 03/28 REMOVAL OF LAP BAND CONVERTED TO GASTRIC SLEEVE/REVISION- DR KEEN 07/30 TONSILLECTOMY ([facility]) 01/2016 HOSPITALIZATION/MAJOR DIAGNOSTIC PROCEDURE SURGICAL ONLY REVIEW OF SYSTEMS CONSTITUTIONAL: ANY CHANGE IN YOUR MEDICAL CONDITION? NO . CHILLS NO . FEVER NO . INFECTION: DO YOU HAVE NEW INFECTIONS? NO . DO YOU HAVE HISTORY OF MRSA? NO . MUSCULOSKELETAL: ANY NEW PATTERNS OF PAIN OR NUMBNESS? NO . GASTROENTEROLOGY: ANY NEW CHANGE IN BOWEL CONTROL? NO . GENITOURINARY: ANY NEW CHANGE IN BLADDER CONTROL? NO . IS THERE A CHANCE YOU COULD BE ? NO . HEMATOLOGY/LYMPH: DO YOU TAKE ANY BLOOD THINNERS? (FOR EXAMPLE- COUMADIN, PLAVIX, AGGRENOX, PLATEL, PRADAXA, OR XARELTO) NO . WHEN WAS YOUR LAST DOSE? DATE: TIME: . NEUROLOGY: HAVE YOU FALLEN IN THE PAST 6 MONTHS? NO . ANY NEW EXTREMITY NUMBNESS OR WEAKNESS? NO . CARDIOLOGY: DO YOU HAVE A PACEMAKER OR DEFIBRILLATOR? NO . RESPIRATORY: HAVE YOU BEEN SICK IN THE PAST WEEK? NO . FEVER NO . FLU LIKE SYMPTOMS? NO . COUGH NO . INTEGUMENTARY: DO YOU HAVE ANY RASHES OR OPEN SORES? NO . ALLERGIC/IMMUNO: ARE YOU ALLERGIC TO SHELLFISH OR IV DYE? NO . ANY NEW ALLERGIES? NO . PSYCHIATRIC: DO YOU HAVE THOUGHTS OF HURTING YOURSELF OR SOMEONE ELSE? NO . ARE YOU ABUSED, NEGLECTED, OR IN AN UNSAFE ENVIRONMENT? NO . ENDOCRINOLOGY: ARE YOU DIABETIC? NO . OTHER: DO YOU NEED ANY PRESCRIPTIONS? YES, SOMA, NORCO . IF YES, PLEASE LIST: ____ . ANY NEW PROBLEMS WITH YOUR MEDICATIONS? NO . WHEN DID YOU LAST EAT? ____ . WHEN DID YOU LAST DRINK? ____ . WHAT DID YOU LAST DRINK? ____ . NAME OF PERSON DRIVING YOU HOME? ____ . DO YOU HAVE ANY OTHER QUESTIONS OR CONCERNS NO . REVIEWED BY: PROVIDER: LILLY AGUILAR . VITAL SIGNS WT 227.0 LBS, HT 70 IN, BMI 32.57 INDEX, BP 130/80 MANUAL, HR 94 /MIN, RR 16 /MIN, TEMP 98.5 F, OXYGEN SAT % 96%, SAFE IN ENV? (Y/N) Y, NA INITIALS TL 0952, REVIEWED BY: EM. EXAMINATION GENERAL EXAMINATION: LUNGS:LUNG SOUNDS ARE CLEAR. HEART:HEART RATE REGULAR. MUSCULOSKELETAL:*, MUSCLE STRENGTH TESTING 5/5 BLE.PARATHESIAS TO LIGHT TOUCH RIGHT LEG.NORMAL SENSATION LIGHT TOUCH LEFT LEG., PALPATION: NEGATIVE FOR PAIN OVER L/S SPINE. SPECIFIC POINT TENDERNESS BILATERAL SIJ. DIAGNOSTIC: . ASSESSMENTS POST LAMINECTOMY SYNDROME - M96.1 (PRIMARY) SACROILIAC DYSFUNCTION - M53.3 CHRONIC PRESCRIPTION OPIATE USE - Z79.899 TREATMENT POST LAMINECTOMY SYNDROME REFILL NORCO TABLET, 7.5-325 MG, 1 TABLET NEEDED, ORALLY, 1-2 Q4-6H MDD6 3MOS SUPPLY CAT D CHRONIC PAIN, 90 DAY(S), 540, REFILLS 0 REFILL SOMA TABLET, 350 MG, 1, ORALLY, BID PRN MDD2 3MOS SUPPLY CATD CHRONIC PAIN, 90 DAY(S), 180, REFILLS 0 NOTES: ISTOP REGISTRY REVIEWED AND DEMNOSTRATES COMPLLIANCE. BRINGS IN MEDICATIONS WHICH IS APPROPRIATE FOR WHAT WAS DISPENSED. RECENT URINE TOXICOLOGY REVIEWED. NO UNAUTHORIZED MEDICATIONS. NO ILLICIT SUBSTANCES AND PRESCRIBED MEDICATIONS WERE PRESENT. , RISKS AND BENEFITS OF NARCOTIC/OPIOD MEDICATIONS WERE REVIEWED WITH PATIENT - THIS INCLUDES BUT IS NOT LIMITED TO RISK OF DEPENDANCE/DEVELOPMENT OF ADDICTION, MOOD DISTURBANCE AND DEPRESSION, OSTEOPOROSIS, HORMONAL AND LABIDAL CHANGES, RESPIRATORY DEPRESSION AND . PATIENT IS ADVISED NOT TO DRIVE WHILE ON THESE MEDICATIONS.URINE TOX TODAY. REQUEST BILWILLIAM. DREW. PROCEDURE CODES FA211 ESTABILISHED PATIENT [facility] FAC[facility] CHARGE DISPOSITION & COMMUNICATION FOLLOW UP 2 WEEKS POST (REASON: REQUEST BILAT. SIVanda) ELECTRONICALLY SIGNED BY JEFF WHITTINGTON ON 03/22/2017 AT 10:23 AM EDT DISCLAIMER : THIS IS A VISIT SUMMARY EXTRACTED FROM THE [employer] CHART. IT IS NOT A COPY OF THE [employer] PROGRESS NOTE. ANNMARIE
== END ==
LOC: M PAIN 09:00
PROVIDERS: ATTEND Nurse Practitioner Family
DX: G89.29 Other chronic pain (principal); M96.1 Postlaminectomy syndrome, not elsewhere classified; M53.3 Sacrococcygeal disorders, not elsewhere classified; I10 Essential (primary) hypertension; E66.9 Obesity, unspecified; F32.9 Major depressive disorder, single episode, unspecified; F41.9 Anxiety disorder, unspecified; M54.5 Low back pain; E78.00 Pure hypercholesterolemia, unspecified; K21.9 Gastro-esophageal reflux disease without esophagitis; J30.9 Allergic rhinitis, unspecified; Z79.891 Long term (current) use of opiate analgesic; Z88.6 Allergy status to analgesic agent; Z88.8 Allergy status to other drugs, medicaments and biological substances; Z79.899 Other long term (current) drug therapy

== ENCOUNTER → 2017-06-10 | Outpatient (REF) | payer BC ==
[2017-06-10 11:35] LABS: ALBUMIN 3.8 GM/DL (3.2-5.2); ALBUMIN/GLOBULIN RATIO 1.15 (1.00-1.93); ALKALINE PHOSPHATASE 73 U/L (45-117); ALT/SGPT 21 U/L (12-78); ANION GAP 5 MEQ/L (8-16); AST/SGOT 9 U/L (15-37); BILIRUBIN,TOTAL 0.3 MG/DL (0.2-1.0); BLOOD UREA NITROGEN 8 MG/DL (7-18); CALCIUM LEVEL 8.3 MG/DL (8.5-10.1); CARBON DIOXIDE LEVEL 28 MEQ/L (21-32); CHLORIDE LEVEL 109 MEQ/L (98-107); CHOLESTEROL LEVEL 215 MG/DL (<200); CREATININE FOR GFR 0.72 MG/DL (0.55-1.02); GLOMERULAR FILTRATION RATE > 60.0 (>60); GLUCOSE, FASTING 77 MG/DL (70-105); POTASSIUM SERUM 3.9 MEQ/L (3.5-5.1); SODIUM LEVEL 142 MEQ/L (136-145); TOTAL PROTEIN 7.1 GM/DL (6.4-8.2); TRIGLYCERIDES LEVEL 121 MG/DL (<150)
== END ==
LOC: M SFHCPLAZ 08:46
PROVIDERS: ATTEND Family Medicine
DX: Z13.220 Encounter for screening for lipoid disorders (principal)

== ENCOUNTER → 2017-06-28 | Outpatient (CLI) | payer BC ==
--- NOTE | 2017-06-29 01:06 | ECWPNPC ---
PATIENT NAME: OCTAVIO HANLEY : 1980 GENDER: FEMALE VISIT DATE: 06/28/2017 DISCHARGE DATE: 06/28/17 1557 VISIT LOCKED DATE TIME: PHYSICIAN: LILLY FALCON PHYSICIAN PAGER NO: TEXT TO [phone] RESOURCE: LILLY FALCON REASON FOR APPOINTMENT 1. MEDS HISTORY OF PRESENT ILLNESS HISTORY OF PRESENT ILLNESS: PAIN THE PATIENT DESCRIBES THE PAIN... HERE FOR F/U OF CHRONIC LOW BACK PAIN WITH RADIATION INTO RIGHT LEG..HAD BILAT. SIJ --.. RATING PAIN VAS 6/10..USES HYDROCODONE 7.5/325 Q4H PRN PAIN ,BACLOFEN 20MG TID AND SOMA 350MG PRN WITH GOOD EFFECT.DESCRIBES PAIN INTERMITTENT SHARP PAIN. PAIN HAS BECOME MORE INTENSE LATELY.HAS RESPONDED WELL TO SIJ IN PAST. FALL RISK SCREENING: SCREENING :NO FALLS IN THE PAST YEAR CURRENT MEDICATIONS TAKING VITAMIN D 2000 UNIT TABLET 5000UNITS ORALLY ONCE A DAY TAKING MULTIVITAMINS 1 TABLET DIRECTED ORALLY DAILY TAKING ELIDEL 1 % CREAM 1 APPLICATION A THIN FILM TO AFFECTED AREA EXTERNALLY TWICE A DAY NEEDED TAKING DEPO-PROVERA 150 MG/ML SUSPENSION 1 INJECTION INTRAMUSCULAR ONCE EVERY 90 DAYS ([employer] WOMAN) TAKING CALCIUM CITRATE + D 315-250 MG-UNIT TABLET 1 TABLET ORALLY TWICE A DAY TAKING VITAMIN B12 100 MCG TABLET ORALLY DAILY TAKING VITAMIN C 500 MG CAPSULE ORALLY ONCE A DAY TAKING BACLOFEN 20 MG TABLET 1 TABLET WITH FOOD OR MILK ORALLY THREE TIMES A DAY TAKING SOMA 350 MG TABLET 1 ORALLY BID PRN MDD2 3MOS SUPPLY CATD CHRONIC PAIN TAKING KLONOPIN 0.5 MG TABLET 1 TABLET ORALLY TWICE DAILY NEEDED FOR ANXIETY (MDD:2) CODE A TAKING XYZAL 5 MG TABLET 1 TABLET IN THE EVENING ORALLY ONCE A DAY TAKING LISINOPRIL 10 MG TABLET 1 TABLET ORALLY ONCE A DAY TAKING BUSPAR 30 MG TABLET 1 TAB ORALLY TWICE A DAY TAKING PRILOSEC 40 MG CAPSULE DELAYED RELEASE 1 CAPSULE ORALLY ONCE A DAY TAKING VENLAFAXINE HCL 75 MG TABLET TAKE 2 TABLETS IN THE AM, AND 1 TABLET IN THE PM ORALLY DAILY TAKING NORCO 7.5-325 MG TABLET 1 TABLET NEEDED ORALLY 1-2 Q4-6H MDD6 3MOS SUPPLY CAT D CHRONIC PAIN TAKING AUGMENTIN 875-125 MG TABLET 1 TABLET ORALLY EVERY 12 HRS TAKING DIFLUCAN 150 MG TABLET 1 TABLET ORALLY ONCE DAILY NEEDED NOT-TAKING TRIAMCINOLONE ACETONIDE 0.1 % CREAM 1 APPLICATION SPARINGLY TO AFFECTED AREA EXTERNALLY TWICE DAILY NEEDED PAST MEDICAL HISTORY HTN OBESITY CP DEPRESSION/ANXIETY LOW BACK PAIN HYPERCHOLESTEROLEMIA GERD ALLERGIC RHINITIS SLEEP STUDY 10/29/11 NEG FOR SLEEP APNEA ALLERGIES CELEBREX: FACIAL SWELLING: ALLERGY NAPROXEN: FACIAL SWELLING: ALLERGY REVIEW OF SYSTEMS REVIEWED BY: PROVIDER: LILLY AGUILAR . CONSTITUTIONAL: ANY CHANGE IN YOUR MEDICAL CONDITION? NO . CHILLS NO . FEVER NO . INFECTION: DO YOU HAVE NEW INFECTIONS? NO . DO YOU HAVE HISTORY OF MRSA? NO . MUSCULOSKELETAL: ANY NEW PATTERNS OF PAIN OR NUMBNESS? NO . GASTROENTEROLOGY: ANY NEW CHANGE IN BOWEL CONTROL? NO . GENITOURINARY: ANY NEW CHANGE IN BLADDER CONTROL? NO . IS THERE A CHANCE YOU COULD BE ? NO . HEMATOLOGY/LYMPH: DO YOU TAKE ANY BLOOD THINNERS? (FOR EXAMPLE- COUMADIN, PLAVIX, AGGRENOX, PLATEL, PRADAXA, OR XARELTO) NO . WHEN WAS YOUR LAST DOSE? DATE: TIME: . NEUROLOGY: HAVE YOU FALLEN IN THE PAST 6 MONTHS? NO . ANY NEW EXTREMITY NUMBNESS OR WEAKNESS? NO . CARDIOLOGY: DO YOU HAVE A PACEMAKER OR DEFIBRILLATOR? NO . RESPIRATORY: HAVE YOU BEEN SICK IN THE PAST WEEK? NO . FEVER NO . FLU LIKE SYMPTOMS? NO . COUGH NO . INTEGUMENTARY: DO YOU HAVE ANY RASHES OR OPEN SORES? NO . ALLERGIC/IMMUNO: ARE YOU ALLERGIC TO SHELLFISH OR IV DYE? NO . ANY NEW ALLERGIES? NO . PSYCHIATRIC: DO YOU HAVE THOUGHTS OF HURTING YOURSELF OR SOMEONE ELSE? NO . ARE YOU ABUSED, NEGLECTED, OR IN AN UNSAFE ENVIRONMENT? NO . ENDOCRINOLOGY: ARE YOU DIABETIC? NO . OTHER: DO YOU NEED ANY PRESCRIPTIONS? NO . IF YES, PLEASE LIST: ____ . ANY NEW PROBLEMS WITH YOUR MEDICATIONS? NO . WHEN DID YOU LAST EAT? ____ . WHEN DID YOU LAST DRINK? ____ . WHAT DID YOU LAST DRINK? ____ . NAME OF PERSON DRIVING YOU HOME? ____ . DO YOU HAVE ANY OTHER QUESTIONS OR CONCERNS NO . VITAL SIGNS WT 230 LBS, HT 70 IN, BMI 33.00 INDEX, BP 155/86 MM HG, HR 102 /MIN, RR 18 /MIN, TEMP 97.8 F, OXYGEN SAT % 98, NA INITIALS AW 1153. EXAMINATION GENERAL EXAMINATION: LUNGS:LUNG SOUNDS ARE CLEAR. HEART:HEART RATE REGULAR. MUSCULOSKELETAL:*, MUSCLE STRENGTH TESTING 5/5 BLE.PARATHESIAS TO LIGHT TOUCH RIGHT LEG.NORMAL SENSATION LIGHT TOUCH LEFT LEG., PALPATION: NEGATIVE FOR PAIN OVER L/S SPINE. SPECIFIC POINT TENDERNESS BILATERAL SIJ. DIAGNOSTIC: . ASSESSMENTS POST LAMINECTOMY SYNDROME - M96.1 (PRIMARY) SACROILIAC JOINT DYSFUNCTION OF BOTH SIDES - M53.3 TREATMENT POST LAMINECTOMY SYNDROME CONTINUE BACLOFEN TABLET, 20 MG, 1 TABLET WITH FOOD OR MILK, ORALLY, THREE TIMES A DAY CONTINUE SOMA TABLET, 350 MG, 1, ORALLY, BID PRN MDD2 3MOS SUPPLY CATD CHRONIC PAIN CONTINUE NORCO TABLET, 7.5-325 MG, 1 TABLET NEEDED, ORALLY, 1-2 Q4-6H MDD6 3MOS SUPPLY CAT D CHRONIC PAIN NOTES: ISTOP REGISTRY REVIEWED AND DEMNOSTRATES COMPLLIANCE. BRINGS IN MEDICATIONS WHICH IS APPROPRIATE FOR WHAT WAS DISPENSED. RECENT URINE TOXICOLOGY REVIEWED. NO UNAUTHORIZED MEDICATIONS. NO ILLICIT SUBSTANCES AND PRESCRIBED MEDICATIONS WERE PRESENT. , RISKS AND BENEFITS OF NARCOTIC/OPIOD MEDICATIONS WERE REVIEWED WITH PATIENT - THIS INCLUDES BUT IS NOT LIMITED TO RISK OF DEPENDANCE/DEVELOPMENT OF ADDICTION, MOOD DISTURBANCE AND DEPRESSION, OSTEOPOROSIS, HORMONAL AND LABIDAL CHANGES, RESPIRATORY DEPRESSION AND . PATIENT IS ADVISED NOT TO DRIVE WHILE ON THESE MEDICATIONSBILAT. SIJ. PREVENTIVE MEDICINE PAIN CLINIC TEACHING: PROCEDURE TEACHING PRE-PROCEDURE TEACHING DONE. QUESTIONS ANSWERED AND PATIENT VERBALIZES UNDERSTANDING.. PROCEDURE CODES FA211 ESTABILISHED PATIENT [facility] CHARGE DISPOSITION & COMMUNICATION FOLLOW UP 2WK POST (REASON: BILAT. SIJ) ELECTRONICALLY SIGNED BY JEFF WHITTINGTON ON 06/28/2017 AT 01:19 PM EDT DISCLAIMER : THIS IS A VISIT SUMMARY EXTRACTED FROM THE [facility] DEPT. CHART. IT IS NOT A COPY OF THE [facility] DEPT. PROGRESS NOTE. MTDD
== END ==
LOC: M PAIN 11:30
PROVIDERS: ATTEND Nurse Practitioner Family
DX: G89.29 Other chronic pain (principal); M96.1 Postlaminectomy syndrome, not elsewhere classified; M53.3 Sacrococcygeal disorders, not elsewhere classified; I10 Essential (primary) hypertension; E66.9 Obesity, unspecified; F41.9 Anxiety disorder, unspecified; F32.9 Major depressive disorder, single episode, unspecified; E78.00 Pure hypercholesterolemia, unspecified; K21.9 Gastro-esophageal reflux disease without esophagitis; J30.9 Allergic rhinitis, unspecified; Z88.6 Allergy status to analgesic agent; Z88.8 Allergy status to other drugs, medicaments and biological substances; Z79.891 Long term (current) use of opiate analgesic; Z79.899 Other long term (current) drug therapy; Z68.33 Body mass index [BMI] 33.0-33.9, adult

== ENCOUNTER → 2017-07-16 | Outpatient (CLI) | payer OTHER ==
--- NOTE | 2017-07-16 10:50 | REP ---
BILATERAL KNEE, TEN VIEWS: HISTORY: Injury. RIGHT KNEE, FIVE VIEWS: There is no acute fracture or dislocation. The joint spaces are normal in appearance. IMPRESSION: There is no acute fracture or dislocation. LEFT KNEE, FIVE VIEWS: There is no acute fracture or dislocation. The joint spaces are normal in appearance. Osteophytes are present on the femur and patella. IMPRESSION: There is no acute fracture or dislocation. Signed by Christian Holly MD 07/16/2017 10:58 A
== END ==
LOC: M LRY 09:40
PROVIDERS: ATTEND Nurse Practitioner Family
DX: S89.90XA Unspecified injury of unspecified lower leg, initial encounter (principal); W18.30XA Fall on same level, unspecified, initial encounter; Y92.009 Unspecified place in unspecified non-institutional (private) residence as the place of occurrence of the external cause

== ENCOUNTER → 2017-08-08 | Outpatient (CLI) | payer BC ==
[~2017-08-08] MED LIST changes: +BUPIVACAINE HCL 0.25% 10 ML VIAL ONE; +ISOVUE-M 300 61% 15ML VIAL (Q9967) ONE; +TRIAMCINOLONE ACETONIDE SUSP 40 MG/ML VIAL (J3301) ONE
--- NOTE | 2017-08-08 12:08 | REP ---
SI joint limited bilateral four views. History: SI joint injection for pain. 25 seconds of fluoroscopy time is reported. Findings: A sequence of four last image hold fluoroscopic spot radiographs of the SI joints document needle position and contrast injection associated with SI joint injection procedure. Signed by Randy Martinez MD 08/08/2017 12:59 P
--- NOTE | 2017-08-10 00:52 | ECWPNPC ---
PATIENT NAME: OCTAVIO HANLEY : 1980 GENDER: FEMALE VISIT DATE: 08/08/2017 DISCHARGE DATE: 08/08/17 1028 VISIT LOCKED DATE TIME: PHYSICIAN: DORA AGUILAR PHYSICIAN PAGER NO: TEXT TO [phone] RESOURCE: DORA AGUILAR REASON FOR APPOINTMENT 1. BILAT SIVanda HISTORY OF PRESENT ILLNESS HISTORY OF PRESENT ILLNESS: PAIN THE PATIENT DESCRIBES THE PAIN... FALL RISK SCREENING: SCREENING :NO FALLS IN THE PAST YEAR CURRENT MEDICATIONS TAKING VITAMIN D 2000 UNIT TABLET 5000UNITS ORALLY ONCE A DAY, NOTES: 08-07-172099 TAKING MULTIVITAMINS 1 TABLET DIRECTED ORALLY DAILY, NOTES: 08-08-17529 TAKING ELIDEL 1 % CREAM 1 APPLICATION A THIN FILM TO AFFECTED AREA EXTERNALLY TWICE A DAY NEEDED, NOTES: NONE TAKING DEPO-PROVERA 150 MG/ML SUSPENSION 1 INJECTION INTRAMUSCULAR ONCE EVERY 90 DAYS (ALFARO WOMAN), NOTES: DUE IN OCTOBER 2017 TAKING CALCIUM CITRATE + D 315-250 MG-UNIT TABLET 1 TABLET ORALLY TWICE A DAY, NOTES: 08-08-17529 TAKING VITAMIN B12 100 MCG TABLET ORALLY DAILY, NOTES: 08-08-17529 TAKING VITAMIN C 500 MG CAPSULE ORALLY ONCE A DAY, NOTES: 08-07-172099 TAKING XYZAL 5 MG TABLET 1 TABLET IN THE EVENING ORALLY ONCE A DAY, NOTES: 08-08-17529 TAKING LISINOPRIL 10 MG TABLET 1 TABLET ORALLY ONCE A DAY, NOTES: 08-08-17529 TAKING BUSPAR 30 MG TABLET 1 TAB ORALLY TWICE A DAY, NOTES: 08-08-17529 TAKING PRILOSEC 40 MG CAPSULE DELAYED RELEASE 1 CAPSULE ORALLY ONCE A DAY, NOTES: 08-07-172099 TAKING VENLAFAXINE HCL 75 MG TABLET TAKE 2 TABLETS IN THE AM, AND 1 TABLET IN THE PM ORALLY DAILY, NOTES: 08-08-17529 TAKING BACLOFEN 20 MG TABLET 1 TABLET WITH FOOD OR MILK ORALLY THREE TIMES A DAY, NOTES: 08-08-17529 TAKING SOMA 350 MG TABLET 1 ORALLY BID PRN MDD2 3MOS SUPPLY CATD CHRONIC PAIN, NOTES: 08-06-172099 TAKING NORCO 7.5-325 MG TABLET 1 TABLET NEEDED ORALLY 1-2 Q4-6H MDD6 3MOS SUPPLY CAT D CHRONIC PAIN, NOTES: 10-23-17 0700 TAKING KLONOPIN 0.5 MG TABLET 1 TABLET ORALLY TWICE DAILY NEEDED FOR ANXIETY (MDD:2) CODE A, NOTES: 08-07-17 2100 TAKING PHYSICAL THERAPY EVALUATE AND TREAT PHYSICAL THERAPY MECHANICAL EVAL & TX FOR LEFT KNEE STRAIN (S86.912) 3 X WK X DISCONTINUED TRIAMCINOLONE ACETONIDE 0.1 % CREAM 1 APPLICATION SPARINGLY TO AFFECTED AREA EXTERNALLY TWICE DAILY NEEDED MEDICATION LIST REVIEWED AND RECONCILED WITH THE PATIENT PAST MEDICAL HISTORY HTN OBESITY CP DEPRESSION/ANXIETY LOW BACK PAIN HYPERCHOLESTEROLEMIA GERD ALLERGIC RHINITIS SLEEP STUDY 10/29/11 NEG FOR SLEEP APNEA ALLERGIES CELEBREX: FACIAL SWELLING: ALLERGY NAPROXEN: FACIAL SWELLING: ALLERGY SOCIAL HISTORY GENERAL: TOBACCO USE ARE YOU A:NEVER SMOKER BMI CARE GOAL FOLLOW-UP ABOVE NORMAL BMI FOLLOW-UPDIETARY MANAGEMENT EDUCATION, GUIDANCE, AND COUNSELING ALCOHOL SCREENING DID YOU HAVE A DRINK CONTAINING ALCOHOL IN THE PAST YEAR?YES HOW OFTEN DID YOU HAVE SIX OR MORE DRINKS ON ONE OCCASION IN THE PAST YEAR?LESS THAN MONTHLY (1 POINT) HOW MANY DRINKS DID YOU HAVE ON A TYPICAL DAY WHEN YOU WERE DRINKING IN THE PAST YEAR?1 OR 2 (0 POINTS) HOW OFTEN DID YOU HAVE A DRINK CONTAINING ALCOHOL IN THE PAST YEAR?TWO TO FOUR TIMES A MONTH (2 POINTS) POINTS3 INTERPRETATIONPOSITIVE RECREATIONAL DRUG USE DRUG USE?NO CAFFEINE CAFFEINE USE?YES HOW OFTEN AND HOW MUCH? 2 CUPS PER DAY SEXUAL HX HAD SEX IN THE LAST 12 MONTHS (VAGINAL, ORAL, OR ANAL)?NO HAVE YOU EVER HAD AN STD?NO OCCUPATION: [employer]- [employer] . DIET: REGULAR, UNFORTUNATELY EATING MORE PROCESSED FOOD THAN SHE SHOULD. EXERCISE: WALKS DAILY . MARITAL STATUS: SINGLE. PETS: 7 DOGS (5 CHICHIUAS AND 2 TOY POODLES). RASTAFARIAN [id number] NONE LANGUAGE LANGUAGES SPOKEN:ARMENIAN LEARNING BARRIERS / SPECIAL NEEDS ORIENTED TO PLAN OF CARE: PATIENT, PAIN MANAGEMENT PATIENT, ORIENTED TO PLAN OF CARE: PATIENT, PAIN MANAGEMENT PATIENT. NEW PATIENT PAIN DIARY TODAY'S VISIT NOTES, FROM 0-10, WHAT LEVEL IS YOUR PAIN TODAY? 0. PAIN CLINIC PFS, CLERGY, PUBLIC HEALTH REFERRALS PFS REFERRAL NEEDED?NO CLERGY REFERRAL NEEDED?NO PUBLIC HEALTH REFERRAL NEEDED?NO WAS THE PROVIDER NOTIFIED OF ANY PERTINENT INFO?YES HAS THE PATIENT BEEN EDUCATED REGARDING HIS/HER PLAN OF CARE?YES HAS THE PATIENT BEEN EDUCATED REGARDING PAIN, THE RISK FOR PAIN, THE IMPORTANCE OF EFFECTIVE PAIN MANAGEMENT, AND THE PAIN ASSESSMENT PROCESS?YES REVIEW OF SYSTEMS REVIEWED BY: PROVIDER: . CONSTITUTIONAL: ANY CHANGE IN YOUR MEDICAL CONDITION? NO . CHILLS NO . FEVER NO . INFECTION: DO YOU HAVE NEW INFECTIONS? NO . DO YOU HAVE HISTORY OF MRSA? NO . MUSCULOSKELETAL: ANY NEW PATTERNS OF PAIN OR NUMBNESS? NO . GASTROENTEROLOGY: ANY NEW CHANGE IN BOWEL CONTROL? NO . GENITOURINARY: ANY NEW CHANGE IN BLADDER CONTROL? NO . IS THERE A CHANCE YOU COULD BE ? NO . HEMATOLOGY/LYMPH: DO YOU TAKE ANY BLOOD THINNERS? (FOR EXAMPLE- COUMADIN, PLAVIX, AGGRENOX, PLATEL, PRADAXA, OR XARELTO) NO . WHEN WAS YOUR LAST DOSE? DATE: TIME: . NEUROLOGY: HAVE YOU FALLEN IN THE PAST 6 MONTHS? YES, 07/14/17 FELL AT WORK HURT HER LEFT KNEE. OFF WORK RIGHT NOW. . ANY NEW EXTREMITY NUMBNESS OR WEAKNESS? NO . CARDIOLOGY: DO YOU HAVE A PACEMAKER OR DEFIBRILLATOR? NO . RESPIRATORY: HAVE YOU BEEN SICK IN THE PAST WEEK? NO . FEVER NO . FLU LIKE SYMPTOMS? NO . COUGH NO . INTEGUMENTARY: DO YOU HAVE ANY RASHES OR OPEN SORES? NO . ALLERGIC/IMMUNO: ARE YOU ALLERGIC TO SHELLFISH OR IV DYE? NO . ANY NEW ALLERGIES? NO . PSYCHIATRIC: DO YOU HAVE THOUGHTS OF HURTING YOURSELF OR SOMEONE ELSE? NO . ARE YOU ABUSED, NEGLECTED, OR IN AN UNSAFE ENVIRONMENT? NO . ENDOCRINOLOGY: ARE YOU DIABETIC? NO . OTHER: DO YOU NEED ANY PRESCRIPTIONS? NO . IF YES, PLEASE LIST: ____ . ANY NEW PROBLEMS WITH YOUR MEDICATIONS? NO . WHEN DID YOU LAST EAT? 08-07-17 8PM . WHEN DID YOU LAST DRINK? 08-08-17 0530 . WHAT DID YOU LAST DRINK? WATER . NAME OF PERSON DRIVING YOU HOME? MOTHER . DO YOU HAVE ANY OTHER QUESTIONS OR CONCERNS NO . VITAL SIGNS WT 250 LBS, HT 70 IN, BMI 35.87 INDEX, BP 158/86 MM HG, HR 74 /MIN, RR 16 /MIN, TEMP 97.3 F, OXYGEN SAT % 96%, NA INITIALS [id number], REVIEWED BY: CM. ASSESSMENTS SACROILIITIS, NOT ELSEWHERE CLASSIFIED - M46.1 (PRIMARY) PROCEDURES PN SI PRE PROCEDURE DIAGNOSIS SACROILIITIS, SACROILIAC JOINT DYSFUNCTION POST PROCEDURE DIAGNOSIS SACROILIITIS, SACROILIAC JOINT DYSFUNCTION PROCEDURE BILATERAL SACROILIAC JOINT BLOCK SURGEON DR. DORA AGUILAR METER READER NONE ANESTHESIA LOCAL PRE PROCEDURE NOTE PATIENT WITH HISTORY OF CHRONIC LOW BACK PAIN. I EVALUATED THE PATIENT AND REVIEWED THE CHART. I WENT OVER THE RISKS, ALTERNATIVES, AND BENEFITS ASSOCIATED WITH THIS PROCEDURE. THE PATIENT WOULD LIKE TO PROCEED AND GAVE CONSENT TO PERFORM THE PROCEDURE. THE PATIENT DENIES UNEXPLAINABLE WEIGHT LOSS, FEVER, CHILLS, OR NEW CHANGES IN URINARY OR BOWEL CONTROL DESCRIPTION OF PROCEDURE THE PATIENT WAS BROUGHT TO THE PROCEDURE ROOM AND PLACED IN THE PRONE POSITION. THE LUMBOSACRAL AREA WAS CLEANED WITH CHLORAPREP SOLUTION AND DRAPED ASEPTICALLY. THE PROCEDURE WAS DONE UNDER STERILE CONDITIONS. I CHECKED LATERALITY AND THE LEVEL WHERE THE PROCEDURE WAS GOING TO BE PERFORMED WITH THE PATIENT AND THE SUPPORTING STAFF AT THE MOMENT OF THE TIME OUT IN THE PROCEDURE ROOM. UNDER FLUOROSCOPIC GUIDANCE, TARGET POINT WAS SELECTED AT THE LOWER BORDER OF THE RIGHT AND LEFT SACROILIAC JOINT. TARGET POINT WAS SELECTED AFTER MEDIAL ROTATION AND TILT OF THE MAGNIFIER OF THE C-ARM. LIDOCAINE WAS USED TO NUMB THE SKIN AND SUBCUTANEOUS TISSUE BELOW IT. A SPINAL NEEDLE, 22-GAUGE, WAS ADVANCED UNDER FLUOROSCOPIC GUIDANCE AND FOLLOWING PATIENT FEEDBACK UNTIL THE TARGET AREA WAS TOUCHED. THE POSITION OF THE NEEDLE WAS VERIFIED WITH AP AND LATERAL VIEWS. AFTER PROPER POSITION OF THE NEEDLE WAS ACHIEVED, ISOVUE M DYE 30%, 0.25 ML, WAS INJECTED SHOWING SPREAD OF THE DYE. THEN, A SOLUTION OF 20 MG OF KENALOG WAS INJECTED IN RIGHT JOINT WITH 3 ML OF BUPIVACAINE 0.125%. THERE WAS NO EVIDENCE OF BLOOD, PARESTHESIA OR CEREBROSPINAL FLUID DURING THE PROCEDURE. THE PATIENT WAS SENT TO THE RECOVERY ROOM. THE PATIENT WAS MOVING THE EXTREMITIES AND DOING WELL. THERE WAS NO COMPLICATION DURING THE PROCEDURE. FLUOROSCOPY TIME WAS 25 SECONDS POST PROCEDURE NOTE THE PATIENT WILL BE SEEN IN A FOLLOW UP IN THE NEXT FEW WEEKS. INSTRUCTIONS WERE GIVEN, QUESTIONS WERE ANSWERED, AND THE PATIENT EXPRESSED UNDERSTANDING AND AGREED WITH THE PLAN. I, NICOLE MANN, DOCUMENTED THE ABOVE INFORMATION ACTING A SCRIBE FOR DR. AGUILAR. I HAVE REVIEWED THE ABOVE DOCUMENT, WRITTEN BY NICOLE BRITO AND I VERIFY THAT IT IS [facility] FLUORO GUIDANCE ([id number] PROCEDURE CODES 57243 INJECT SACROILIAC JOINT, MODIFIERS: 50 [id number] RADXPS IN END [id number] PXD DISPOSITION & COMMUNICATION FOLLOW UP 3 WEEKS ELECTRONICALLY SIGNED BY DORA AGUILAR MD ON 08/09/2017 AT 05:43 PM EDT DISCLAIMER : THIS IS A VISIT SUMMARY EXTRACTED FROM THE [employer] CHART. IT IS NOT A COPY OF THE [employer] PROGRESS NOTE. MTDD
== END ==
LOC: M PAIN 08:30
PROVIDERS: ATTEND Anesthesiology
DX: G89.29 Other chronic pain (principal); M46.1 Sacroiliitis, not elsewhere classified; M53.88 Other specified dorsopathies, sacral and sacrococcygeal region; I10 Essential (primary) hypertension; E55.9 Vitamin D deficiency, unspecified; F32.9 Major depressive disorder, single episode, unspecified; F41.9 Anxiety disorder, unspecified; K21.9 Gastro-esophageal reflux disease without esophagitis; J30.9 Allergic rhinitis, unspecified; Z88.8 Allergy status to other drugs, medicaments and biological substances; Z79.891 Long term (current) use of opiate analgesic; Z79.899 Other long term (current) drug therapy
CPT/HCPCS: G0260; J3301; Q9967

== ENCOUNTER → 2017-10-03 | Outpatient (CLI) | payer OTHER ==
[~2017-10-03] MED LIST changes: -BUPIVACAINE HCL 0.25% 10 ML VIAL ONE; -ISOVUE-M 300 61% 15ML VIAL (Q9967) ONE; -TRIAMCINOLONE ACETONIDE SUSP 40 MG/ML VIAL (J3301) ONE
--- NOTE | 2017-10-03 11:13 | REP ---
MRI LEFT KNEE: TECHNIQUE: Axial proton density fat saturation, sagittal proton density T2 STIR, water excitation, coronal proton density, proton density fat saturation. The menisci are intact with no evidence of a meniscal tear. The cruciate and collateral ligaments are intact. The extensor mechanism is intact. There is mild edema in the soft tissues anterior to the patellar tendon, a nonspecific finding which may represent soft tissue contusion or mild bursitis. There is moderate diffuse chondromalacia in all three joint compartments. There is mild focal subchondral marrow edema in the superolateral patella. There is no occult fracture or other area of abnormal marrow signal. There is a small joint effusion. No popliteal cyst is seen. IMPRESSION: No meniscal tear. Cruciate and collateral ligaments intact. Mild nonspecific soft tissue edema anterior to the patellar tendon, could be posttraumatic versus mild bursitis. Moderate diffuse chondromalacia. Small joint effusion. Signed by Pankaj Burrows MD 10/03/2017 05:55 P
== END ==
LOC: M RAD 08:11
PROVIDERS: ATTEND Physician Assistant
DX: M94.262 Chondromalacia, left knee (principal); M25.462 Effusion, left knee; M25.362 Other instability, left knee

== ENCOUNTER → 2017-11-24 | Outpatient (REF) | payer BC ==
[2017-11-24 19:46] LABS: AMORPHOUS SEDIMENT LARGE (NEGATIVE); APPEARANCE, URINE TURBID (CLEAR); BACTERIA, URINE AUTO NEGATIVE (NEGATIVE); BILIRUBIN, URINE AUTO NEGATIVE (NEGATIVE); BLOOD, URINE BLOOD NEGATIVE (NEGATIVE); COLOR, URINE AMBER (YELLOW); GLUCOSE, URINE (UA) AUTO NEGATIVE (NEGATIVE); KETONE, URINE AUTO TRACE mg/dL (NEGATIVE); LEUKOCYTE ESTERASE, URINE AUTO NEGATIVE (NEGATIVE); MUCUS, URINE SMALL (NEGATIVE); NITRITE, URINE AUTO NEGATIVE (NEGATIVE); PROTEIN, URINE AUTO NEGATIVE (NEGATIVE); RBC, URINE AUTO 3 /HPF (0-3); SPECIFIC GRAVITY URINE AUTO 1.025 (1.002-1.035); SQUAMOUS EPITHELIAL CELL UR AU 1 /HPF (0-6); WBC, URINE AUTO 1 /HPF (0-3)
== END ==
LOC: M LAB REF 18:20
DX: R39.89 Other symptoms and signs involving the genitourinary system (principal)
CPT/HCPCS: 81001

== ENCOUNTER → 2018-01-13 | Outpatient (CLI) | payer BC | LOC: M PAIN 09:30 | DX: M53.3 Sacrococcygeal disorders, not elsewhere classified (principal); M96.1 Postlaminectomy syndrome, not elsewhere classified; I10 Essential (primary) hypertension; F32.9 Major depressive disorder, single episode, unspecified; F41.9 Anxiety disorder, unspecified; E78.00 Pure hypercholesterolemia, unspecified; K21.9 Gastro-esophageal reflux disease without esophagitis; J30.9 Allergic rhinitis, unspecified; E66.01 Morbid (severe) obesity due to excess calories; Z79.891 Long term (current) use of opiate analgesic; Z79.899 Other long term (current) drug therapy; Z88.8 Allergy status to other drugs, medicaments and biological substances | CPT/HCPCS: G0463 ==

== ENCOUNTER → 2018-02-02 | Outpatient (CLI) | payer BC ==
[~2018-02-02] MED LIST changes: -/BACL20TA; -/BACL20TA OR; -/DULO30CA; -/LOR25TA PO; -/QUET25TA; -/ZOLP6ER; -ACIPHEX; +BUPIVACAINE HCL 0.25% 30 ML VIAL As Ordered; -BUSP30TA; -BUSP30TA OR; -CALCGRA15 PO; -CARA1SUS PO; -CIPR750T5 PO; -DEPO150I IM; -DEPOPROVERA IM; -DEPRO PROVERA IM; -DETR4CAP; -EFFE75CA75; -EFFE75CA75 OR; -FLAG500T PO; -HYCE0.1S PO; -HYDR12.56 PO; -HYDR25TA6; -HYDR25TA6 OR; +ISOVUE-M 300 61% 15ML VIAL (Q9967) As Ordered; -KLON0.5T OR; -KLON1TAB; -KLON1TAB OR; -LIDO5DIS; -LIDO5DIS EX; +LIDOCAINE 1% SDV INJ 30 ML VIAL As Ordered; -LISI10TA4 PO; -LISI20TA PO; -LISI20TA5; -LISI20TA5 OR; -LORT1TAB PO; -MONOESSA PO; -MORP15TA4 PO; -MS C15TA5; -MULTIVIT PO; -NEUR100C OR; -NORCO; -NORCO PO; -PRIL20CA PO; -PRIN10TA PO; -SEASONALE; -SOMA350T PO; -THERGRAN; +TRIAMCINOLONE ACETONIDE SUSP 40 MG/ML VIAL (J3301) As Ordered; -VESICARE; -VIT D 2000 PO; -VITA-112 PO; -VITA250L PO; -XYZA5TAB PO; -ZANT150T OR; -[UNRECOGNIZED DRUG - CODE]; -[UNRECOGNIZED DRUG - OTHER]; -[UNRECOGNIZED DRUG - OTHER] TOP; -lisinopril/hctz PO
== END ==
LOC: M PAIN 09:15
DX: G89.29 Other chronic pain (principal); M46.1 Sacroiliitis, not elsewhere classified; I10 Essential (primary) hypertension; E66.9 Obesity, unspecified; F32.9 Major depressive disorder, single episode, unspecified; F41.9 Anxiety disorder, unspecified; E78.00 Pure hypercholesterolemia, unspecified; K21.9 Gastro-esophageal reflux disease without esophagitis; J30.9 Allergic rhinitis, unspecified; Z79.891 Long term (current) use of opiate analgesic; Z79.899 Other long term (current) drug therapy; Z88.6 Allergy status to analgesic agent; Z88.8 Allergy status to other drugs, medicaments and biological substances
CPT/HCPCS: J3301

== ENCOUNTER → 2018-02-16 | Outpatient (CLI) | payer BC | LOC: M PAIN 10:00 | DX: G89.29 Other chronic pain (principal); M53.3 Sacrococcygeal disorders, not elsewhere classified; M96.1 Postlaminectomy syndrome, not elsewhere classified; I10 Essential (primary) hypertension; E66.9 Obesity, unspecified; F32.9 Major depressive disorder, single episode, unspecified; F41.9 Anxiety disorder, unspecified; E78.00 Pure hypercholesterolemia, unspecified; K21.9 Gastro-esophageal reflux disease without esophagitis; J30.9 Allergic rhinitis, unspecified; Z79.891 Long term (current) use of opiate analgesic; Z79.899 Other long term (current) drug therapy; Z98.84 Bariatric surgery status; Z88.6 Allergy status to analgesic agent; Z88.8 Allergy status to other drugs, medicaments and biological substances | CPT/HCPCS: G0463 ==

== ENCOUNTER → 2018-02-17 | Outpatient (REF) | payer BC ==
[2018-02-17 16:43] LABS: HEMATOCRIT 45.9 % (36.0-47.0); HEMOGLOBIN 15.8 g/dl (12.0-15.5); MEAN CORPUSCULAR HEMOGLOBIN 31.7 pg (27.0-33.0); MEAN CORPUSCULAR HGB CONC 34.4 g/dl (32.0-36.5); MEAN CORPUSCULAR VOLUME 92.2 fl (80.0-96.0); PLATELET COUNT, AUTOMATED 328 10^3/uL (150-450); RED BLOOD COUNT 4.98 10^6/uL (4.00-5.40); RED CELL DISTRIBUTION WIDTH 12.7 % (11.5-14.5); WHITE BLOOD COUNT 11.1 10^3/uL (4.0-10.0)
[2018-02-17 16:49] LABS: ANION GAP 10 MEQ/L (8-16); BLOOD UREA NITROGEN 16 MG/DL (7-18); CALCIUM LEVEL 9.8 MG/DL (8.5-10.1); CARBON DIOXIDE LEVEL 24 MEQ/L (21-32); CHLORIDE LEVEL 103 MEQ/L (98-107); CREATININE FOR GFR 0.98 MG/DL (0.55-1.30); GLOMERULAR FILTRATION RATE > 60.0 (>60); GLUCOSE, FASTING 104 MG/DL (70-100); POTASSIUM SERUM 3.6 MEQ/L (3.5-5.1); SODIUM LEVEL 137 MEQ/L (136-145)
== END ==
LOC: M SFHCLERA 13:10
DX: R00.0 Tachycardia, unspecified (principal)
CPT/HCPCS: 84443

== ENCOUNTER → 2018-05-02 | Outpatient (CLI) | payer BC ==
[~2018-05-02] MED LIST changes: -BUPIVACAINE HCL 0.25% 30 ML VIAL As Ordered; -TRIAMCINOLONE ACETONIDE SUSP 40 MG/ML VIAL (J3301) As Ordered; +methylPREDNISolone SUSP 40 MG/ML (DEPO-medrol) VIAL (J1030) As Ordered
== END ==
LOC: M PAIN 08:30
DX: G89.29 Other chronic pain (principal); M96.1 Postlaminectomy syndrome, not elsewhere classified; M51.17 Intervertebral disc disorders with radiculopathy, lumbosacral region; I10 Essential (primary) hypertension; F32.9 Major depressive disorder, single episode, unspecified; F41.9 Anxiety disorder, unspecified; M54.5 Low back pain; E78.00 Pure hypercholesterolemia, unspecified; K21.9 Gastro-esophageal reflux disease without esophagitis; Z79.899 Other long term (current) drug therapy; Z79.3 Long term (current) use of hormonal contraceptives; Z88.8 Allergy status to other drugs, medicaments and biological substances
CPT/HCPCS: J1030

== ENCOUNTER → 2018-05-16 | Outpatient (CLI) | payer BC | LOC: M PAIN 08:45 | DX: M53.3 Sacrococcygeal disorders, not elsewhere classified (principal); M96.1 Postlaminectomy syndrome, not elsewhere classified; I10 Essential (primary) hypertension; F32.9 Major depressive disorder, single episode, unspecified; F41.9 Anxiety disorder, unspecified; E78.00 Pure hypercholesterolemia, unspecified; K21.9 Gastro-esophageal reflux disease without esophagitis; J30.9 Allergic rhinitis, unspecified; E66.01 Morbid (severe) obesity due to excess calories; Z68.39 Body mass index [BMI] 39.0-39.9, adult; Z79.891 Long term (current) use of opiate analgesic; Z79.899 Other long term (current) drug therapy; Z88.8 Allergy status to other drugs, medicaments and biological substances | CPT/HCPCS: G0463 ==

== ENCOUNTER → 2018-07-05 | Outpatient (CLI) | payer BC | LOC: M PAIN 14:30 | DX: M96.1 Postlaminectomy syndrome, not elsewhere classified (principal); I10 Essential (primary) hypertension; F32.9 Major depressive disorder, single episode, unspecified; F41.9 Anxiety disorder, unspecified; K21.9 Gastro-esophageal reflux disease without esophagitis; Z79.891 Long term (current) use of opiate analgesic; Z79.899 Other long term (current) drug therapy; Z88.8 Allergy status to other drugs, medicaments and biological substances; J30.9 Allergic rhinitis, unspecified | CPT/HCPCS: G0463 ==

== ENCOUNTER → 2019-01-31 | Outpatient (CLI) | payer BC ==
[~2019-01-31] MED LIST changes: +/LOR25TA PO; +/ZOLP6ER; +ACIPHEX; +BACL1TAB9; +BACL1TAB9 OR; +BUSP30TA; +BUSP30TA OR; +CALCGRA15 PO; +CARA1SUS PO; +CIPR750T5 PO; +CYMB1CAP5; +DEPO150I IM; +DEPOPROVERA IM; +DEPRO PROVERA IM; +DETR4CAP; +EFFE75CA75; +EFFE75CA75 OR; +FLAG500T PO; +HYCE0.1S PO; +HYDR12.56 PO; +HYDR25TA6; +HYDR25TA6 OR; -ISOVUE-M 300 61% 15ML VIAL (Q9967) As Ordered; +KLON0.5T OR; +KLON1TAB; +KLON1TAB OR; +LIDO5DIS; +LIDO5DIS EX; -LIDOCAINE 1% SDV INJ 30 ML VIAL As Ordered; +LISI10TA4 PO; +LISI20TA PO; +LISI20TA5; +LISI20TA5 OR; +LORT1TAB PO; +MONOESSA PO; +MORP15TA4 PO; +MS C15TA5; +MULTIVIT PO; +NEUR100C OR; +NORCO; +NORCO PO; +PRIL20CA PO; +PRIN10TA PO; +SEASONALE; +SERO1TAB3; +SOMA350T PO; +THERGRAN; +VESICARE; +VIT D 2000 PO; +VITA-112 PO; +VITA250L PO; +XYZA5TAB PO; +ZANT150T OR; +[UNRECOGNIZED DRUG - CODE]; +[UNRECOGNIZED DRUG - OTHER]; +[UNRECOGNIZED DRUG - OTHER] TOP; +lisinopril/hctz PO; -methylPREDNISolone SUSP 40 MG/ML (DEPO-medrol) VIAL (J1030) As Ordered
--- NOTE | 2019-02-16 01:25 | ECWPNPC ---
PATIENT NAME: OCTAVIO HANLEY : 1980 GENDER: FEMALE VISIT DATE: 01/31/2019 DISCHARGE DATE: 01/31/19 1512 VISIT LOCKED DATE TIME: PHYSICIAN: LILLY FALCON RESOURCE: LILLY FALCON REASON FOR APPOINTMENT 1. MEDS HISTORY OF PRESENT ILLNESS HISTORY OF PRESENT ILLNESS: PAIN THE PATIENT DESCRIBES THE PAIN... THE PATIENT DESCRIBES THE PAIN... THE PATIENT DESCRIBES THE PAIN... THE PATIENT DESCRIBES THE PAIN... THE PATIENT DESCRIBES THE PAIN... HERE FOR F/U OF CHRONIC LOW BACK PAIN WITH RADIATION INTO RIGHT LEG. RATING PAIN VAS 6/10..USES HYDROCODONE 7.5/325 Q4H PRN PAIN ,BACLOFEN 20MG TID AND SOMA 350MG PRN WITH GOOD EFFECT.DESCRIBES PAIN INTERMITTENT SHARP PAIN. BACK PAIN HAS ESCALATED LATELY R>L.HAD TO MISS LAST LESI DUE TO FAMILY ISSUES. FALL RISK SCREENING: SCREENING :NO FALLS REPORTED IN THE LAST YEAR CURRENT MEDICATIONS TAKING VOLTAREN 1 % GEL DIRECTED TRANSDERMAL DAILY TAKING VITAMIN D 2000 UNIT TABLET 1 TAB ORALLY ONCE A DAY TAKING ELIDEL 1 % CREAM 1 APPLICATION A THIN FILM TO AFFECTED AREA EXTERNALLY TWICE A DAY NEEDED TAKING DEPO-PROVERA 150 MG/ML SUSPENSION 1 INJECTION INTRAMUSCULAR ONCE EVERY 90 DAYS (ALFARO WOMAN) TAKING MULTIVITAMINS 1 TABLET DIRECTED ORALLY DAILY TAKING VITAMIN C 500 MG CAPSULE ORALLY ONCE A DAY TAKING LEVOCETIRIZINE DIHYDROCHLORIDE 5 MG TABLET 1 TABLET IN THE EVENING ORALLY ONCE A DAY TAKING PRILOSEC 40 MG CAPSULE DELAYED RELEASE 1 CAPSULE ORALLY ONCE A DAY TAKING BUSPAR 30 MG TABLET 1 TAB ORALLY TWICE A DAY TAKING SOMA 350 MG TABLET 1 ORALLY BID PRN MDD2 3MOS SUPPLY CATD CHRONIC PAIN TAKING ZESTORETIC 20-12.5 MG TABLET 1 TABLET ORALLY ONCE A DAY TAKING VENLAFAXINE HCL 75 MG TABLET TAKE 2 TABLETS IN THE AM, AND 1 TABLET IN THE PM ORALLY DAILY TAKING KLONOPIN 0.5 MG TABLET 1 TABLET ORALLY TWICE DAILY NEEDED FOR ANXIETY (MDD:2) CODE A TAKING VESICARE 5 MG TABLET 1 TABLET ORALLY ONCE A DAY TAKING NORCO 7.5-325 MG TABLET 1 TABLET NEEDED ORALLY 1-2 Q4-6H MDD6 3MOS SUPPLY CAT D CHRONIC PAIN TAKING BACLOFEN 20 MG TABLET 1 TABLET WITH FOOD OR MILK ORALLY THREE TIMES A DAY DISCONTINUED BACTRIM DS 800-160 MG TABLET 1 TABLET ORALLY TWICE A DAY DISCONTINUED DIFLUCAN 150 MG TABLET 1 TABLET ORALLY EVERY 24 HRS, REPEAT IN 3 DAYS DISCONTINUED AUGMENTIN 875-125 MG TABLET 1 TABLET ORALLY EVERY 12 HRS DISCONTINUED BUSPIRONE HCL 30 MG TABLET TAKE ONE TABLET BY MOUTH TWICE A DAY , NOTES: DUPLICATE MEDICATION LIST REVIEWED AND RECONCILED WITH THE PATIENT PAST MEDICAL HISTORY CEREBAL PALSY WITH RIGHT SIDED SPASTICITY HTN, GOAL BP 130/80 PER AHA/ACC DEPRESSION/ANXIETY OBESITY, S/P GASTRIC SLEEVE LUMBAR DDD, S/P MULTIPLE DISCECTOMIES HYPERCHOLESTEROLEMIA GERD ALLERGIC RHINITIS SLEEP STUDY 10/29/11 NEG FOR SLEEP APNEA ALLERGIES CELEBREX: FACIAL SWELLING - ALLERGY NAPROXEN: FACIAL SWELLING - ALLERGY SURGICAL HISTORY R HEEL CORD LENGTHENING 1983 ADNOIDECTOMY R BUNIONECTOMY X 2 1996 LUMBAR LAMINECTOMY 2004 LASER DISCECTOMY, L4-5 2005 LUMBAR LAMINECTOMY/DISCECTOMY 2009 " ", L2-3 2009 LAPROSCOPIC BAND (REALIZE BAND) - DR. KEEN 12/15/11 CEREBRAL PALSY RECONSTRUCTION RT HAND- ORTHO [facility] 03/28 REMOVAL OF LAP BAND CONVERTED TO GASTRIC SLEEVE/REVISION- DR KEEN 07/2014 TONSILLECTOMY ([facility]) 01/2016 FAMILY HISTORY FATHER: ALIVE, DIAGNOSED WITH HYPERTENSION, PSYCHIATRIC CONDITIONS MOTHER: ALIVE 59 YRS, H/O MELANOMA, PRE-DIABETIC, GRAVE'S DISEASE WITH SECONDARY HYPOTHYROIDISM, LIPIDS, HTN, HYPERTENSION, OTHER, DIABETES SIBLINGS: BROTHER (1) - BIPOLAR DISORDER, SCHIZOPHRENIA PATERNAL GRAND FATHER: , OF SOME SORT OF CANCER PATERNAL GRAND MOTHER: , OF MOM-HYPOTHYROID, PRE-DIABETIC\\NPATERNAL GRANDPARENTS--CANCER. SOCIAL HISTORY GENERAL: TOBACCO USE ARE YOU A:NEVER SMOKER LATEX QUESTIONNAIRE LATEX ALLERGY : HAVE YOU EVER DEVELOPED ANY TYPE OF REACTION AFTER HANDLING LATEX PRODUCTS SUCH RUBBER GLOVES, CONDOMS, DIAPHRAGMS, BALLOONS, SOCKS, OR UNDERWEAR?NO LATEX ALLERGY : HAVE YOU EVER DEVELOPED ANY TYPE OF REACTION DURING OR AFTER DENTAL APPOINTMENT, VAGINAL/RECTAL EXAMINATION, SURGICAL PROCEDURE, OR ANY OTHER EXPOSURE?NO LATEX RISK : HAVE YOU EVER HAD ANY DIFFICULTY BREATHING OR HIVES AFTER EATING OR HANDLING ANY FRUITS, OR VEGETABLES; SUCH KIWI, BANANAS, STONE FRUITS, OR CHESTNUTSNO LATEX RISK : DO YOU HAVE A PREVIOUS PERSONAL HISTORY OF MORE THAN NINE SURGERIES, SPINA BIFIDA, OR REPEATED CATHERTIZATIONS? YES - PLEASE INDICATE : > 9 SURGERIES LATEX RISK : ARE YOU FREQUENTLY EXPOSED TO LATEX PRODUCTS IN YOUR OCCUPATION?NO DATE ASKED : 01/31/2019 BMI CARE GOAL FOLLOW-UP ABOVE NORMAL BMI FOLLOW-UPDIETARY MANAGEMENT EDUCATION, GUIDANCE, AND COUNSELING ALCOHOL SCREENING DID YOU HAVE A DRINK CONTAINING ALCOHOL IN THE PAST YEAR?YES HOW OFTEN DID YOU HAVE A DRINK CONTAINING ALCOHOL IN THE PAST YEAR?TWO TO FOUR TIMES A MONTH (2 POINTS) HOW MANY DRINKS DID YOU HAVE ON A TYPICAL DAY WHEN YOU WERE DRINKING IN THE PAST YEAR?1 OR 2 (0 POINTS) HOW OFTEN DID YOU HAVE SIX OR MORE DRINKS ON ONE OCCASION IN THE PAST YEAR?LESS THAN MONTHLY (1 POINT) POINTS3 INTERPRETATIONPOSITIVE RECREATIONAL DRUG USE DRUG USE?NO CAFFEINE CAFFEINE USE?YES HOW OFTEN AND HOW MUCH? 2 CUPS PER DAY SEXUAL HX HAD SEX IN THE LAST 12 MONTHS (VAGINAL, ORAL, OR ANAL)?NO HAVE YOU EVER HAD AN STD?NO HIV / HEP-C SCREENING HIV TEST OFFERED TO PATIENT:YES DATE OFFERED:03/02/2018 TEST ACCEPTED:NO REASON:PATIENT DECLINED BROCHURE PROVIDED TO PATIENTNO HEP-C TEST OFFERED TO PATIENT:YES DATE OFFERED:03/02/2018 TEST ACCEPTED:NO REASON:PATIENT DECLINED RELIGIOUS [id number] NONE LANGUAGE LANGUAGES SPOKEN:WALLISIAN EDUCATION LEVEL OF EDUCATION:COLLEGE LEARNING BARRIERS / SPECIAL NEEDS CHANGE FROM LAST VISIT?NO BARRIERS TO LEARNING?NO HEARING IMPAIRED?NO VISION IMPAIRED?NO COGNITIVELY IMPAIRED?NO READINESS TO LEARN?YES LEARNING PREFERENCES?NO LEARNING CAPABILITIES PRESENT?YES EMOTIONAL BARRIERS?NO SPECIAL DEVICES?NO DRY CHAIN OFFBEARER NEEDED?NO DOMESTIC VIOLENCE DO YOU FEEL SAFE IN YOUR ENVIRONMENT?YES 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 DIET: REGULAR, UNFORTUNATELY EATING MORE PROCESSED FOOD THAN SHE SHOULD. EXERCISE: WALKS DAILY . MARITAL STATUS: SINGLE. NEW PATIENT PAIN DIARY TODAY'S VISITNOTES PAIN CLINIC PFS, CLERGY, PUBLIC HEALTH REFERRALS PFS REFERRAL NEEDED?NO CLERGY REFERRAL NEEDED?NO PUBLIC HEALTH REFERRAL NEEDED?NO WAS THE PROVIDER NOTIFIED OF ANY PERTINENT INFO? N/A HAS THE PATIENT BEEN EDUCATED REGARDING HIS/HER PLAN OF CARE?YES HAS THE PATIENT BEEN EDUCATED REGARDING PAIN, THE RISK FOR PAIN, THE IMPORTANCE OF EFFECTIVE PAIN MANAGEMENT, AND THE PAIN ASSESSMENT PROCESS?YES ADVANCE DIRECTIVE ADVANCE DIRECTIVE DISCUSSED WITH PATIENT:YES HCP JER-PAOLA WADE SHAI [phone] 05/16/18 0900 REVIEWED WITH PT. AD01/31/19 REVIEWED WITH PT. AD. HOSPITALIZATION/MAJOR DIAGNOSTIC PROCEDURE SURGICAL ONLY REVIEW OF SYSTEMS REVIEWED BY: PROVIDER: LILLY AGUILAR . CONSTITUTIONAL: ANY CHANGE IN YOUR MEDICAL CONDITION? NO . CHILLS NO . FEVER NO . INFECTION: DO YOU HAVE NEW INFECTIONS? NO . DO YOU HAVE HISTORY OF MRSA? NO . MUSCULOSKELETAL: ANY NEW PATTERNS OF PAIN OR NUMBNESS? NO . GASTROENTEROLOGY: ANY NEW CHANGE IN BOWEL CONTROL? NO . GENITOURINARY: ANY NEW CHANGE IN BLADDER CONTROL? NO . IS THERE A CHANCE YOU COULD BE ? NO . HEMATOLOGY/LYMPH: DO YOU TAKE ANY BLOOD THINNERS? (FOR EXAMPLE- COUMADIN, PLAVIX, AGGRENOX, PLATEL, PRADAXA, OR XARELTO) NO . WHEN WAS YOUR LAST DOSE? DATE: TIME: . NEUROLOGY: HAVE YOU FALLEN IN THE PAST 12 MONTHS? NO . ANY NEW EXTREMITY NUMBNESS OR WEAKNESS? NO . CARDIOLOGY: DO YOU HAVE A PACEMAKER OR DEFIBRILLATOR? NO . RESPIRATORY: HAVE YOU BEEN SICK IN THE PAST WEEK? NO . FEVER NO . FLU LIKE SYMPTOMS? NO . COUGH NO . INTEGUMENTARY: DO YOU HAVE ANY RASHES OR OPEN SORES? NO . ALLERGIC/IMMUNO: ARE YOU ALLERGIC TO IV DYE? NO . ANY NEW ALLERGIES? NO . PSYCHIATRIC: DO YOU HAVE THOUGHTS OF HURTING YOURSELF OR SOMEONE ELSE? NO . ARE YOU ABUSED, NEGLECTED, OR IN AN UNSAFE ENVIRONMENT? NO . ENDOCRINOLOGY: ARE YOU DIABETIC? NO . OTHER: DO YOU NEED ANY PRESCRIPTIONS? YES . IF YES, PLEASE LIST: SOMA . ANY NEW PROBLEMS WITH YOUR MEDICATIONS? NO . WHEN DID YOU LAST EAT? ____ . WHEN DID YOU LAST DRINK? ____ . WHAT DID YOU LAST DRINK? ____ . NAME OF PERSON DRIVING YOU HOME? ____ . DO YOU HAVE ANY OTHER QUESTIONS OR CONCERNS NO . VITAL SIGNS WT 270.2 LBS, HT 70 IN, BMI 38.77 INDEX, BP 128/97 MM HG, HR 76 /MIN, RR 16 /MIN, TEMP 97.7 F, OXYGEN SAT % 96%, SAFE IN ENV? (Y/N) Y, NA INITIALS SC 14:14, REVIEWED BY: AD. EXAMINATION GENERAL EXAMINATION: LUNGS:LUNG SOUNDS ARE CLEAR. HEART:HEART RATE REGULAR. MUSCULOSKELETAL:*, MUSCLE STRENGTH TESTING 5/5 BLE.PARATHESIAS TO LIGHT TOUCH RIGHT LEG.NORMAL SENSATION LIGHT TOUCH LEFT LEG., PALPATION: DISCOMFORTR>L. DIAGNOSTIC: . ASSESSMENTS POST LAMINECTOMY SYNDROME - M96.1 (PRIMARY) TREATMENT POST LAMINECTOMY SYNDROME REFILL SOMA TABLET, 350 MG, 1, ORALLY, BID PRN MDD2 3MOS SUPPLY CATD CHRONIC PAIN, 90 DAY(S), 180, REFILLS 1 CONTINUE NORCO TABLET, 7.5-325 MG, 1 TABLET NEEDED, ORALLY, 1-2 Q4-6H MDD6 3MOS SUPPLY CAT D CHRONIC PAIN CONTINUE BACLOFEN TABLET, 20 MG, 1 TABLET WITH FOOD OR MILK, ORALLY, THREE TIMES A DAY NOTES: ISTOP REGISTRY REVIEWED AND DEMONSTRATES COMPLLIANCE. BRINGS IN MEDICATIONS WHICH IS APPROPRIATE FOR WHAT WAS DISPENSED. RECENT URINE TOXICOLOGY REVIEWED. NO UNAUTHORIZED MEDICATIONS. NO ILLICIT SUBSTANCES AND PRESCRIBED MEDICATIONS WERE PRESENT. URINE TOX TODAY, RISKS AND BENEFITS OF NARCOTIC/OPIOD MEDICATIONS WERE REVIEWED WITH PATIENT - THIS INCLUDES BUT IS NOT LIMITED TO RISK OF DEPENDANCE/DEVELOPMENT OF ADDICTION, MOOD DISTURBANCE AND DEPRESSION, OSTEOPOROSIS, HORMONAL AND LABIDAL CHANGES, RESPIRATORY DEPRESSION AND . PATIENT IS ADVISED NOT TO DRIVE OR DRINK ALCOHOL WHILE ON THESE MEDICATIONS. PROCEDURE CODES FA211 ESTABILISHED PATIENT [facility] CHARGE DISPOSITION & COMMUNICATION FOLLOW UP 2 MONTHS ELECTRONICALLY SIGNED BY JEFF PALACIOS ON 02/15/2019 AT 04:18 PM EDT DISCLAIMER : THIS IS A VISIT SUMMARY EXTRACTED FROM THE [employer] CHART. IT IS NOT A COPY OF THE [employer] PROGRESS NOTE. [facility]
== END ==
LOC: M PAIN 14:15
PROVIDERS: ATTEND Nurse Practitioner Family
DX: M96.1 Postlaminectomy syndrome, not elsewhere classified (principal); G80.1 Spastic diplegic cerebral palsy; I10 Essential (primary) hypertension; Z86.59 Personal history of other mental and behavioral disorders; E78.00 Pure hypercholesterolemia, unspecified; K21.9 Gastro-esophageal reflux disease without esophagitis; Z88.6 Allergy status to analgesic agent; Z79.899 Other long term (current) drug therapy

== ENCOUNTER → 2019-03-22 | Outpatient (CLI) | payer BC ==
--- NOTE | 2019-04-10 01:29 | ECWPNPC ---
PATIENT NAME: OCTAVIO HANLEY : 1980 GENDER: FEMALE VISIT DATE: 03/22/2019 DISCHARGE DATE: 03/22/19 1216 VISIT LOCKED DATE TIME: PHYSICIAN: LILLY FALCON RESOURCE: LILLY FALCON REASON FOR APPOINTMENT 1. 2 MO/POST PROC HISTORY OF PRESENT ILLNESS HISTORY OF PRESENT ILLNESS: PAIN THE PATIENT DESCRIBES THE PAIN... THE PATIENT DESCRIBES THE PAIN... THE PATIENT DESCRIBES THE PAIN... THE PATIENT DESCRIBES THE PAIN... THE PATIENT DESCRIBES THE PAIN... THE PATIENT DESCRIBES THE PAIN... HERE FOR F/U OF CHRONIC LOW BACK PAIN WITH RADIATION INTO RIGHT LEG. RATING PAIN VAS 8/10..USES HYDROCODONE 7.5/325 Q4H PRN PAIN ,BACLOFEN 20MG TID AND SOMA 350MG PRN WITH GOOD EFFECT.DESCRIBES PAIN INTERMITTENT SHARP PAIN. BACK PAIN HAS ESCALATED LATELY R>L. FALL RISK SCREENING: SCREENING :NO FALLS REPORTED IN THE LAST YEAR CURRENT MEDICATIONS TAKING VOLTAREN 1 % GEL DIRECTED TRANSDERMAL DAILY TAKING VITAMIN D 2000 UNIT TABLET 1 TAB ORALLY ONCE A DAY TAKING ELIDEL 1 % CREAM 1 APPLICATION A THIN FILM TO AFFECTED AREA EXTERNALLY TWICE A DAY NEEDED TAKING DEPO-PROVERA 150 MG/ML SUSPENSION 1 INJECTION INTRAMUSCULAR ONCE EVERY 90 DAYS (ALFARO WOMAN) TAKING MULTIVITAMINS 1 TABLET DIRECTED ORALLY DAILY TAKING VITAMIN C 500 MG CAPSULE ORALLY ONCE A DAY TAKING LEVOCETIRIZINE DIHYDROCHLORIDE 5 MG TABLET 1 TABLET IN THE EVENING ORALLY ONCE A DAY TAKING PRILOSEC 40 MG CAPSULE DELAYED RELEASE 1 CAPSULE ORALLY ONCE A DAY TAKING BUSPAR 30 MG TABLET 1 TAB ORALLY TWICE A DAY TAKING ZESTORETIC 20-12.5 MG TABLET 1 TABLET ORALLY ONCE A DAY TAKING VENLAFAXINE HCL 75 MG TABLET TAKE 2 TABLETS IN THE AM, AND 1 TABLET IN THE PM ORALLY DAILY TAKING VESICARE 5 MG TABLET 1 TABLET ORALLY ONCE A DAY TAKING SOMA 350 MG TABLET 1 ORALLY BID PRN MDD2 3MOS SUPPLY CATD CHRONIC PAIN TAKING NORCO 7.5-325 MG TABLET 1 TABLET NEEDED ORALLY 1-2 Q4-6H MDD6 3MOS SUPPLY CAT D CHRONIC PAIN TAKING BACLOFEN 20 MG TABLET 1 TABLET WITH FOOD OR MILK ORALLY THREE TIMES A DAY TAKING KLONOPIN 0.5 MG TABLET 1 TABLET ORALLY TWICE DAILY NEEDED FOR ANXIETY (MDD:2) CODE A MEDICATION LIST REVIEWED AND RECONCILED WITH THE PATIENT PAST MEDICAL HISTORY CEREBAL PALSY WITH RIGHT SIDED SPASTICITY HTN, GOAL BP 130/80 PER AHA/ACC DEPRESSION/ANXIETY OBESITY, S/P GASTRIC SLEEVE LUMBAR DDD, S/P MULTIPLE DISCECTOMIES HYPERCHOLESTEROLEMIA GERD ALLERGIC RHINITIS SLEEP STUDY 10/29/11 NEG FOR SLEEP APNEA ALLERGIES CELEBREX: FACIAL SWELLING - ALLERGY NAPROXEN: FACIAL SWELLING - ALLERGY SURGICAL HISTORY R HEEL CORD LENGTHENING 1983 ADNOIDECTOMY R BUNIONECTOMY X 2 1995 LUMBAR LAMINECTOMY 2003 LASER DISCECTOMY, L4-5 2004 LUMBAR LAMINECTOMY/DISCECTOMY 2009 " ", L2-3 2010 LAPROSCOPIC BAND (REALIZE BAND) - DR. KEEN 12/15/11 CEREBRAL PALSY RECONSTRUCTION RT HAND- [facility]THO [facility] 03/28 REMOVAL OF LAP BAND CONVERTED TO GASTRIC SLEEVE/REVISION- DR KEEN 07/2014 TONSILLECTOMY ([facility]) 01/2016 FAMILY HISTORY FATHER: ALIVE, DIAGNOSED WITH HYPERTENSION, PSYCHIATRIC CONDITIONS MOTHER: ALIVE 59 YRS, H/O MELANOMA, PRE-DIABETIC, GRAVE'S DISEASE WITH SECONDARY HYPOTHYROIDISM, LIPIDS, HTN, OTHER, DIABETES, HYPERTENSION SIBLINGS: BROTHER (1) - BIPOLAR DISORDER, SCHIZOPHRENIA PATERNAL GRAND FATHER: , OF SOME SORT OF CANCER PATERNAL GRAND MOTHER: , OF MOM-HYPOTHYROID, PRE-DIABETIC\\NPATERNAL GRANDPARENTS--CANCER. SOCIAL HISTORY GENERAL: TOBACCO USE ARE YOU A:NEVER SMOKER HIV / HEP-C SCREENING HIV TEST OFFERED TO PATIENT:YES DATE OFFERED:03/02/2018 TEST ACCEPTED:NO REASON:PATIENT DECLINED BROCHURE PROVIDED TO PATIENTNO HEP-C TEST OFFERED TO PATIENT:YES DATE OFFERED:03/02/2018 TEST ACCEPTED:NO REASON:PATIENT DECLINED EDUCATION LEVEL OF EDUCATION:COLLEGE DIET: REGULAR, UNFORTUNATELY EATING MORE PROCESSED FOOD THAN SHE SHOULD. LANGUAGE LANGUAGES SPOKEN:THAI DOMESTIC VIOLENCE DO YOU FEEL SAFE IN YOUR ENVIRONMENT?YES NEW PATIENT PAIN DIARY TODAY'S VISITNOTES BMI CARE GOAL FOLLOW-UP ABOVE NORMAL BMI FOLLOW-UPDIETARY MANAGEMENT EDUCATION, GUIDANCE, AND COUNSELING RECREATIONAL DRUG USE DRUG USE?NO EXERCISE: WALKS DAILY. LEARNING BARRIERS / SPECIAL NEEDS CHANGE FROM LAST VISIT?NO BARRIERS TO LEARNING?NO HEARING IMPAIRED?NO VISION IMPAIRED?NO COGNITIVELY IMPAIRED?NO READINESS TO LEARN?YES LEARNING PREFERENCES?NO LEARNING CAPABILITIES PRESENT?YES EMOTIONAL BARRIERS?NO SPECIAL DEVICES?NO HEAD NURSE NEEDED?NO PAIN CLINIC PFS, CLERGY, PUBLIC HEALTH REFERRALS PFS REFERRAL NEEDED?NO CLERGY REFERRAL NEEDED?NO PUBLIC HEALTH REFERRAL NEEDED?NO WAS THE PROVIDER NOTIFIED OF ANY PERTINENT INFO? N/A HAS THE PATIENT BEEN EDUCATED REGARDING HIS/HER PLAN OF CARE?YES HAS THE PATIENT BEEN EDUCATED REGARDING PAIN, THE RISK FOR PAIN, THE IMPORTANCE OF EFFECTIVE PAIN MANAGEMENT, AND THE PAIN ASSESSMENT PROCESS?YES LATEX QUESTIONNAIRE LATEX ALLERGY : HAVE YOU EVER DEVELOPED ANY TYPE OF REACTION AFTER HANDLING LATEX PRODUCTS SUCH RUBBER GLOVES, CONDOMS, DIAPHRAGMS, BALLOONS, SOCKS, OR UNDERWEAR?NO LATEX ALLERGY : HAVE YOU EVER DEVELOPED ANY TYPE OF REACTION DURING OR AFTER DENTAL APPOINTMENT, VAGINAL/RECTAL EXAMINATION, SURGICAL PROCEDURE, OR ANY OTHER EXPOSURE?NO LATEX RISK : HAVE YOU EVER HAD ANY DIFFICULTY BREATHING OR HIVES AFTER EATING OR HANDLING ANY FRUITS, OR VEGETABLES; SUCH KIWI, BANANAS, STONE FRUITS, OR CHESTNUTSNO LATEX RISK : DO YOU HAVE A PREVIOUS PERSONAL HISTORY OF MORE THAN NINE SURGERIES, SPINA BIFIDA, OR REPEATED CATHERTIZATIONS? YES - PLEASE INDICATE : > 9 SURGERIES LATEX RISK : ARE YOU FREQUENTLY EXPOSED TO LATEX PRODUCTS IN YOUR OCCUPATION?NO DATE ASKED : 01/31/2019 CAFFEINE CAFFEINE USE?YES HOW OFTEN AND HOW MUCH? 2 CUPS PER DAY ADVANCE DIRECTIVE ADVANCE DIRECTIVE DISCUSSED WITH PATIENT:YES HCP MOM-PAOLA GIBBONS [phone] LATTER-DAY [id number] NONE MARITAL STATUS: SINGLE. 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 SEXUAL HX HAD SEX IN THE LAST 12 MONTHS (VAGINAL, ORAL, OR ANAL)?NO HAVE YOU EVER HAD AN STD?NO 05/16/18 0900 REVIEWED WITH PT. AD01/31/19 REVIEWED WITH PT. AD. HOSPITALIZATION/MAJOR DIAGNOSTIC PROCEDURE SURGICAL ONLY REVIEW OF SYSTEMS REVIEWED BY: PROVIDER: LILLY AGUILAR . CONSTITUTIONAL: ANY CHANGE IN YOUR MEDICAL CONDITION? NO . CHILLS NO . FEVER NO . INFECTION: DO YOU HAVE NEW INFECTIONS? NO . DO YOU HAVE HISTORY OF MRSA? NO . MUSCULOSKELETAL: ANY NEW PATTERNS OF PAIN OR NUMBNESS? YES, RIGHT SCIATICA PAIN AND RIGHT HIP PAIN . GASTROENTEROLOGY: ANY NEW CHANGE IN BOWEL CONTROL? NO . GENITOURINARY: ANY NEW CHANGE IN BLADDER CONTROL? NO . IS THERE A CHANCE YOU COULD BE ? NO . HEMATOLOGY/LYMPH: DO YOU TAKE ANY BLOOD THINNERS? (FOR EXAMPLE- COUMADIN, PLAVIX, AGGRENOX, PLATEL, PRADAXA, OR XARELTO) NO . WHEN WAS YOUR LAST DOSE? DATE: TIME: . NEUROLOGY: HAVE YOU FALLEN IN THE PAST 12 MONTHS? NO . ANY NEW EXTREMITY NUMBNESS OR WEAKNESS? YES, RIGHT LEG PAIN . CARDIOLOGY: DO YOU HAVE A PACEMAKER OR DEFIBRILLATOR? NO . RESPIRATORY: HAVE YOU BEEN SICK IN THE PAST WEEK? NO . FEVER NO . FLU LIKE SYMPTOMS? NO . COUGH NO . INTEGUMENTARY: DO YOU HAVE ANY RASHES OR OPEN SORES? NO . ALLERGIC/IMMUNO: ARE YOU ALLERGIC TO IV DYE? NO . ANY NEW ALLERGIES? NO . PSYCHIATRIC: DO YOU HAVE THOUGHTS OF HURTING YOURSELF OR SOMEONE ELSE? NO . ARE YOU ABUSED, NEGLECTED, OR IN AN UNSAFE ENVIRONMENT? NO . ENDOCRINOLOGY: ARE YOU DIABETIC? NO . OTHER: DO YOU NEED ANY PRESCRIPTIONS? YES, NORCO . IF YES, PLEASE LIST: ____ . ANY NEW PROBLEMS WITH YOUR MEDICATIONS? NO . WHEN DID YOU LAST EAT? ____ . WHEN DID YOU LAST DRINK? ____ . WHAT DID YOU LAST DRINK? ____ . NAME OF PERSON DRIVING YOU HOME? ____ . DO YOU HAVE ANY OTHER QUESTIONS OR CONCERNS YES, DISCUSS Oriana CARR . VITAL SIGNS WT 275.8 LBS, HT 70 IN, BMI 39.57 INDEX, BP 127/93 MM HG, HR 78 /MIN, RR 18 /MIN, TEMP 98.1 F, OXYGEN SAT % 95%, NA INITIALS SC 11:36. EXAMINATION GENERAL EXAMINATION: LUNGS:LUNG SOUNDS ARE CLEAR. HEART:HEART RATE REGULAR. MUSCULOSKELETAL:*, MUSCLE STRENGTH TESTING 5/5 BLE.PARATHESIAS TO LIGHT TOUCH RIGHT LEG.NORMAL SENSATION LIGHT TOUCH LEFT LEG., PALPATION: DISCOMFORTR>L. DIAGNOSTIC: . ASSESSMENTS POST LAMINECTOMY SYNDROME - M96.1 (PRIMARY) TREATMENT POST LAMINECTOMY SYNDROME REFILL NORCO TABLET, 7.5-325 MG, 1 TABLET NEEDED, ORALLY, 1-2 Q4-6H MDD6 3MOS SUPPLY CAT D CHRONIC PAIN, 90 DAY(S), 540, REFILLS 0 NOTES: ISTOP REGISTRY REVIEWED AND DEMONSTRATES COMPLLIANCE. BRINGS IN MEDICATIONS WHICH IS APPROPRIATE FOR WHAT WAS DISPENSED. RECENT URINE TOXICOLOGY REVIEWED. NO UNAUTHORIZED MEDICATIONS. NO ILLICIT SUBSTANCES AND PRESCRIBED MEDICATIONS WERE PRESENT. , RISKS AND BENEFITS OF NARCOTIC/OPIOD MEDICATIONS WERE REVIEWED WITH PATIENT - THIS INCLUDES BUT IS NOT LIMITED TO RISK OF DEPENDANCE/DEVELOPMENT OF ADDICTION, MOOD DISTURBANCE AND DEPRESSION, OSTEOPOROSIS, HORMONAL AND LABIDAL CHANGES, RESPIRATORY DEPRESSION AND . PATIENT IS ADVISED NOT TO DRIVE OR DRINK ALCOHOL WHILE ON THESE MEDICATIONS. PROCEDURE CODES FA211 ESTABILISHED PATIENT [facility] CHARGE DISPOSITION & COMMUNICATION FOLLOW UP [facility] MIK[facility] ELECTRONICALLY SIGNED BY JEFF PALACIOS ON 04/09/2019 AT 07:47 AM EDT DISCLAIMER : THIS IS A VISIT SUMMARY EXTRACTED FROM THE [employer] CHART. IT IS NOT A COPY OF THE [employer] PROGRESS NOTE. ANNMARIE
== END ==
LOC: M PAIN 11:15
PROVIDERS: ATTEND Nurse Practitioner Family
DX: M96.1 Postlaminectomy syndrome, not elsewhere classified (principal); G89.29 Other chronic pain; M54.5 Low back pain; G80.1 Spastic diplegic cerebral palsy; Z79.891 Long term (current) use of opiate analgesic; Z79.899 Other long term (current) drug therapy; Z88.8 Allergy status to other drugs, medicaments and biological substances

== ENCOUNTER → 2019-05-16 | Outpatient (CLI) | payer OTHER, BC ==
[~2019-05-16] MED LIST changes: +ISOVUE-M 200 41% 20ML VIAL (Q9966) As Ordered ONE; +LIDOCAINE 1% SDV INJ 30 ML VIAL As Ordered ONE; +methylPREDNISolone SUSP 40 MG/ML (DEPO-medrol) VIAL (J1030) As Ordered ONE
--- NOTE | 2019-05-16 13:50 | REP ---
Partial lumbar spine series: Two views . History: Injection procedure for pain. 14 seconds of fluoroscopy time is reported. Findings: A sequence of two fluoroscopically obtained last image hold procedural spot radiographs of the lumbar spine document needle position and contrast injection associated with injection procedure. Electronically Signed by Randy Martinez MD 05/16/2019 01:42 P
--- NOTE | 2019-05-31 00:48 | ECWPNPC ---
PATIENT NAME: OCTAVIO HANLEY : 1980 GENDER: FEMALE VISIT DATE: 05/16/2019 DISCHARGE DATE: 05/16/19 1126 VISIT LOCKED DATE TIME: PHYSICIAN: DORA AGUILAR MD RESOURCE: DORA AGUILAR MD REASON FOR APPOINTMENT 1. LESI HISTORY OF PRESENT ILLNESS HISTORY OF PRESENT ILLNESS: PAIN THE PATIENT DESCRIBES THE PAIN... FALL RISK SCREENING: SCREENING :NO FALLS REPORTED IN THE LAST YEAR CURRENT MEDICATIONS TAKING VOLTAREN 1 % GEL DIRECTED TRANSDERMAL DAILY, NOTES: 05-15-19 TAKING VITAMIN D 2000 UNIT TABLET 1 TAB ORALLY ONCE A DAY, NOTES: TAKING DEPO-PROVERA 150 MG/ML SUSPENSION 1 INJECTION INTRAMUSCULAR ONCE EVERY 90 DAYS (ALFARO WOMAN), NOTES: 2 MONTHS AGO TAKING MULTIVITAMINS 1 TABLET DIRECTED ORALLY DAILY, NOTES: 05-16-19629 TAKING VITAMIN C 500 MG CAPSULE ORALLY ONCE A DAY, NOTES: 05-16-19629 TAKING LEVOCETIRIZINE DIHYDROCHLORIDE 5 MG TABLET 1 TABLET IN THE EVENING ORALLY ONCE A DAY, NOTES: 05-16-19599 TAKING PRILOSEC 40 MG CAPSULE DELAYED RELEASE 1 CAPSULE ORALLY ONCE A DAY, NOTES: 05-15-192099 TAKING BUSPAR 30 MG TABLET 1 TAB ORALLY TWICE A DAY, NOTES: 05-16-19629 TAKING VESICARE 5 MG TABLET 1 TABLET ORALLY ONCE A DAY, NOTES: 05-15-192129 TAKING SOMA 350 MG TABLET 1 ORALLY BID PRN MDD2 3MOS SUPPLY CATD CHRONIC PAIN, NOTES: 05-15-191599 TAKING BACLOFEN 20 MG TABLET 1 TABLET WITH FOOD OR MILK ORALLY THREE TIMES A DAY, NOTES: 05-16-19629 TAKING KLONOPIN 0.5 MG TABLET 1 TABLET ORALLY TWICE DAILY NEEDED FOR ANXIETY (MDD:2) CODE A, NOTES: 05-15-192129 TAKING NORCO 7.5-325 MG TABLET 1 TABLET NEEDED ORALLY 1-2 Q4-6H MDD6 3MOS SUPPLY CAT D CHRONIC PAIN, NOTES: 05-16-19799 TAKING VENLAFAXINE HCL 75 MG TABLET TAKE 2 TABLETS IN THE AM, AND 1 TABLET IN THE PM ORALLY DAILY, NOTES: 05-16-19629 TAKING ZESTORETIC 20-12.5 MG TABLET 1 TABLET ORALLY ONCE A DAY, NOTES: 05-16-19629 TAKING IBUPROFEN 1 TAB ORAL , NOTES: NOT LATELY NOT-TAKING ELIDEL 1 % CREAM 1 APPLICATION A THIN FILM TO AFFECTED AREA EXTERNALLY TWICE A DAY NEEDED MEDICATION LIST REVIEWED AND RECONCILED WITH THE PATIENT PAST MEDICAL HISTORY CEREBAL PALSY WITH RIGHT SIDED SPASTICITY HTN, GOAL BP 130/80 PER AHA/ACC DEPRESSION/ANXIETY OBESITY, S/P GASTRIC SLEEVE LUMBAR DDD, S/P MULTIPLE DISCECTOMIES HYPERCHOLESTEROLEMIA GERD ALLERGIC RHINITIS SLEEP STUDY 10/29/11 NEG FOR SLEEP APNEA ALLERGIES CELEBREX: FACIAL SWELLING - ALLERGY NAPROXEN: FACIAL SWELLING - ALLERGY SURGICAL HISTORY R HEEL CORD LENGTHENING 1984 ADNOIDECTOMY R BUNIONECTOMY X 2 1996 LUMBAR LAMINECTOMY 2003 LASER DISCECTOMY, L4-5 2005 LUMBAR LAMINECTOMY/DISCECTOMY 2009 " ", L2-3 2010 LAPROSCOPIC BAND (REALIZE BAND) - DR. KEEN 12/15/11 CEREBRAL PALSY RECONSTRUCTION RT HAND- [facility] 03/28 REMOVAL OF LAP BAND CONVERTED TO GASTRIC SLEEVE/REVISION- DR KEEN 07/2014 TONSILLECTOMY ([facility]) 01/2016 FAMILY HISTORY FATHER: ALIVE 61 YRS, DIAGNOSED WITH HYPERTENSION, PSYCHIATRIC CONDITIONS MOTHER: ALIVE 59 YRS, H/O MELANOMA, PRE-DIABETIC, GRAVE'S DISEASE WITH SECONDARY HYPOTHYROIDISM, LIPIDS, HTN, ANXIETY, OTHER, DIABETES, HYPERTENSION SIBLINGS: BROTHER (1) - BIPOLAR DISORDER, SCHIZOPHRENIA PATERNAL GRAND FATHER: , OF SOME SORT OF CANCER PATERNAL GRAND MOTHER: , OF MOM-HYPOTHYROID, PRE-DIABETIC\\NPATERNAL GRANDPARENTS--CANCER. SOCIAL HISTORY GENERAL: TOBACCO USE ARE YOU A:NEVER SMOKER HIV / HEP-C SCREENING HIV TEST OFFERED TO PATIENT:YES DATE OFFERED:03/02/2018 TEST ACCEPTED:NO REASON:PATIENT DECLINED BROCHURE PROVIDED TO PATIENTNO HEP-C TEST OFFERED TO PATIENT:YES DATE OFFERED:03/02/2018 TEST ACCEPTED:NO REASON:PATIENT DECLINED EDUCATION LEVEL OF EDUCATION:COLLEGE DIET: REGULAR, UNFORTUNATELY EATING MORE PROCESSED FOOD THAN SHE SHOULD. LANGUAGE LANGUAGES SPOKEN:GERMAN DOMESTIC VIOLENCE DO YOU FEEL SAFE IN YOUR ENVIRONMENT?YES NEW PATIENT PAIN DIARY TODAY'S VISITNOTES BMI CARE GOAL FOLLOW-UP ABOVE NORMAL BMI FOLLOW-UPDIETARY MANAGEMENT EDUCATION, GUIDANCE, AND COUNSELING RECREATIONAL DRUG USE DRUG USE?NO EXERCISE: WALKS DAILY. LEARNING BARRIERS / SPECIAL NEEDS CHANGE FROM LAST VISIT?NO BARRIERS TO LEARNING?NO HEARING IMPAIRED?NO VISION IMPAIRED?NO COGNITIVELY IMPAIRED?NO READINESS TO LEARN?YES LEARNING PREFERENCES?NO LEARNING CAPABILITIES PRESENT?YES EMOTIONAL BARRIERS?NO SPECIAL DEVICES?NO SENIOR ENGINEERING MANAGER NEEDED?NO PAIN CLINIC PFS, CLERGY, PUBLIC HEALTH REFERRALS PFS REFERRAL NEEDED?NO CLERGY REFERRAL NEEDED?NO PUBLIC HEALTH REFERRAL NEEDED?NO WAS THE PROVIDER NOTIFIED OF ANY PERTINENT INFO? N/A HAS THE PATIENT BEEN EDUCATED REGARDING HIS/HER PLAN OF CARE?YES HAS THE PATIENT BEEN EDUCATED REGARDING PAIN, THE RISK FOR PAIN, THE IMPORTANCE OF EFFECTIVE PAIN MANAGEMENT, AND THE PAIN ASSESSMENT PROCESS?YES LATEX QUESTIONNAIRE LATEX ALLERGY : HAVE YOU EVER DEVELOPED ANY TYPE OF REACTION AFTER HANDLING LATEX PRODUCTS SUCH RUBBER GLOVES, CONDOMS, DIAPHRAGMS, BALLOONS, SOCKS, OR UNDERWEAR?NO LATEX ALLERGY : HAVE YOU EVER DEVELOPED ANY TYPE OF REACTION DURING OR AFTER DENTAL APPOINTMENT, VAGINAL/RECTAL EXAMINATION, SURGICAL PROCEDURE, OR ANY OTHER EXPOSURE?NO LATEX RISK : HAVE YOU EVER HAD ANY DIFFICULTY BREATHING OR HIVES AFTER EATING OR HANDLING ANY FRUITS, OR VEGETABLES; SUCH KIWI, BANANAS, STONE FRUITS, OR CHESTNUTSNO LATEX RISK : DO YOU HAVE A PREVIOUS PERSONAL HISTORY OF MORE THAN NINE SURGERIES, SPINA BIFIDA, OR REPEATED CATHERIZATIONS? YES - PLEASE INDICATE : > 9 SURGERIES LATEX RISK : ARE YOU FREQUENTLY EXPOSED TO LATEX PRODUCTS IN YOUR OCCUPATION?NO DATE ASKED : 01/31/2019 CAFFEINE CAFFEINE USE?YES HOW OFTEN AND HOW MUCH? 2 CUPS PER DAY ADVANCE DIRECTIVE ADVANCE DIRECTIVE DISCUSSED WITH PATIENT:YES HCP [facility] [phone] BAHAI [id number] NONE MARITAL STATUS: SINGLE. 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 SEXUAL HX HAD SEX IN THE LAST 12 MONTHS (VAGINAL, ORAL, OR ANAL)?NO HAVE YOU EVER HAD AN STD?NO 05/16/18 0900 REVIEWED WITH PT. AD01/31/19 REVIEWED WITH PT. AD. HOSPITALIZATION/MAJOR DIAGNOSTIC PROCEDURE SURGICAL ONLY REVIEW OF SYSTEMS REVIEWED BY: PROVIDER: . CONSTITUTIONAL: ANY CHANGE IN YOUR MEDICAL CONDITION? NO . CHILLS NO . FEVER NO . INFECTION: DO YOU HAVE NEW INFECTIONS? NO . DO YOU HAVE HISTORY OF MRSA? NO . MUSCULOSKELETAL: ANY NEW PATTERNS OF PAIN OR NUMBNESS? YES . GASTROENTEROLOGY: ANY NEW CHANGE IN BOWEL CONTROL? NO . GENITOURINARY: ANY NEW CHANGE IN BLADDER CONTROL? NO STRESS INCONTINENCE INTERMITTINGLY . IS THERE A CHANCE YOU COULD BE ? NO . HEMATOLOGY/LYMPH: DO YOU TAKE ANY BLOOD THINNERS? (FOR EXAMPLE- COUMADIN, PLAVIX, AGGRENOX, PLATEL, PRADAXA, OR XARELTO) NO . WHEN WAS YOUR LAST DOSE? DATE: TIME: . NEUROLOGY: HAVE YOU FALLEN IN THE PAST 12 MONTHS? NO . ANY NEW EXTREMITY NUMBNESS OR WEAKNESS? NO . CARDIOLOGY: DO YOU HAVE A PACEMAKER OR DEFIBRILLATOR? NO . RESPIRATORY: HAVE YOU BEEN SICK IN THE PAST WEEK? NO . FEVER NO . FLU LIKE SYMPTOMS? NO . COUGH NO . INTEGUMENTARY: DO YOU HAVE ANY RASHES OR OPEN SORES? NO . ALLERGIC/IMMUNO: ARE YOU ALLERGIC TO IV DYE? NO . ANY NEW ALLERGIES? NO . PSYCHIATRIC: DO YOU HAVE THOUGHTS OF HURTING YOURSELF OR SOMEONE ELSE? NO . ARE YOU ABUSED, NEGLECTED, OR IN AN UNSAFE ENVIRONMENT? NO . ENDOCRINOLOGY: ARE YOU DIABETIC? NO . OTHER: DO YOU NEED ANY PRESCRIPTIONS? NO . IF YES, PLEASE LIST: ____ . ANY NEW PROBLEMS WITH YOUR MEDICATIONS? NO . WHEN DID YOU LAST EAT? ____730 PM LAST NIGHY . WHEN DID YOU LAST DRINK? ____ . WHAT DID YOU LAST DRINK? ____ . NAME OF PERSON DRIVING YOU HOME? ____ . DO YOU HAVE ANY OTHER QUESTIONS OR CONCERNS NO . VITAL SIGNS WT 275.6 LBS, HT 70 IN, BMI 39.54 INDEX, BP 139/79 MM HG, HR 101 /MIN, RR 18 /MIN, TEMP 97.7 F, OXYGEN SAT % 94%, NA INITIALS AW 0922, REVIEWED BY: KG. ASSESSMENTS LUMBAR POST-LAMINECTOMY SYNDROME - M96.1 (PRIMARY) INTERVERTEBRAL DISC DISORDER WITH RADICULOPATHY OF LUMBOSACRAL REGION - M51.17 PROCEDURES PRE PROCEDURE DIAGNOSIS LUMBAR POST LAMINECTOMY PAIN SYNDROME, LUMBOSACRAL DISC DISORDER WITH RADICULOPATHY POST PROCEDURE DIAGNOSIS LUMBAR POST LAMINECTOMY PAIN SYNDROME , LUMBOSACRAL DISC DISORDER WITH RADICULOPATHY PROCEDURE LUMBAR EPIDURAL STEROID INJECTION UNDER FLUOROSCOPIC GUIDANCE SURGEON DR. DORA AGUILAR HUMAN RESOURCES BENEFITS MANAGER NONE ANESTHESIA LOCAL PRE PROCEDURE NOTE THE PATIENT HAS A HISTORY OF CHRONIC LOW BACK PAIN. I EVALUATE THE PATIENT AND REVIEWED THE CHART. I WENT OVER THE RISKS, ALTERNATIVES, AND BENEFITS ASSOCIATED WITH THIS PROCEDURE. THE PATIENT WOULD LIKE TO PROCEED AND GIVE CONSENT TO PERFORMED THE PROCEDURE. THE PATIENT DENIES UNEXPLAINABLE WEIGHT LOSS, FEVER, CHILLS, OR NEW CHANGES IN URINARY OR BOWEL CONTROL. DESCRIPTION OF PROCEDURE THE PATIENT WAS BROUGHT TO THE PROCEDURE ROOM AND PLACED IN THE PRONE POSITION. THE LUMBOSACRAL AREA WAS CLEANED WITH BETADINE SOLUTION AND DRAPED ASEPTICALLY. THE PROCEDURE WAS DONE UNDER STERILE CONDITIONS. I CHECKED LATERALITY AND THE LEVEL WHERE THE PROCEDURE WAS GOING TO BE PERFORMED WITH THE PATIENT AND THE SUPPORTING STAFF AT THE MOMENT OF THE TIME OUT IN THE PROCEDURE ROOM. UNDER FLUOROSCOPIC GUIDANCE, THE TARGET POINT WAS SELECTED AT THE INTERLAMINAR LEVEL OF L5-S1. LIDOCAINE WAS USED TO NUMB THE SKIN AND THE SUBCUTANEOUS TISSUE BELOW IT. EPIDURAL TUOHY NEEDLE, 17-GAUGE, WAS ADVANCED UNDER FLUOROSCOPIC GUIDANCE AND FOLLOWING PATIENT FEEDBACK UNTIL THE EPIDURAL SPACE WAS REACHED, 7 CM DEEP INTO THE SKIN BY THE LOSS OF RESISTANCE TECHNIQUE. ISOVUE M-200 DYE WAS INJECTED SHOWING ADEQUATE SPREAD OF THE DYE. THEN, A SOLUTION OF 3 ML OF NORMAL SALINE WITH DEPO-MEDROL 60 MG WAS INJECTED SLOWLY FOLLOWING PATIENT FEEDBACK. THERE WAS NO EVIDENCE OF BLOOD, PARESTHESIA OR CEREBROSPINAL FLUID DURING THE PROCEDURE. THE PATIENT WAS SENT TO THE RECOVERY ROOM. THE PATIENT WAS MOVING THE EXTREMITIES AND DOING WELL. THERE WAS NO COMPLICATION DURING THE PROCEDURE. FLUOROSCOPY TIME WAS 14 SECONDS. POST PROCEDURE NOTE THE PATIENT WILL BE SEEN IN A FOLLOW UP IN THE NEXT FEW WEEKS. INSTRUCTIONS WERE GIVEN, QUESTIONS WERE ANSWERED, AND THE PATIENT EXPRESSED UNDERSTANDING AND AGREES WITH THE PLAN. I, YADIEL SPIVEY, DOCUMENTED THE ABOVE INFORMATION ACTING A SCRIBE FOR DR. AGUILAR. I HAVE REVIEWED THE ABOVE DOCUMENT, WRITTEN BY YADIEL SPIVEY SCRIBDisha AND I VERIFY THAT IT IS ACCURATE. DIAGNOSTIC IMAGING [facility] FLUORO GUIDE SPINE INJECTION (PAIN)[id number] PROCEDURE CODES 6045F RADXPS IN END [id number] PXD [id number] LUMBAR/SACRAL W/ IMAGING DISPOSITION & COMMUNICATION FOLLOW UP 2 WEEKS ELECTRONICALLY SIGNED BY DORA AGUILAR MD, MD ON 05/30/2019 AT 11:52 AM EDT DISCLAIMER : THIS IS A VISIT SUMMARY EXTRACTED FROM THE [employer] CHART. IT IS NOT A COPY OF THE [employer] PROGRESS NOTE. ANNMARIE
== END ==
LOC: M PAIN 09:15
PROVIDERS: ATTEND Anesthesiology
DX: M96.1 Postlaminectomy syndrome, not elsewhere classified (principal); M51.17 Intervertebral disc disorders with radiculopathy, lumbosacral region; Z79.891 Long term (current) use of opiate analgesic; Z79.899 Other long term (current) drug therapy; Z88.4 Allergy status to anesthetic agent; Z88.5 Allergy status to narcotic agent
CPT/HCPCS: 62323; J1030; Q9966

== ENCOUNTER → 2019-06-14 | Outpatient (CLI) | payer BC ==
[~2019-06-14] MED LIST changes: -ISOVUE-M 200 41% 20ML VIAL (Q9966) As Ordered ONE; -LIDOCAINE 1% SDV INJ 30 ML VIAL As Ordered ONE; -methylPREDNISolone SUSP 40 MG/ML (DEPO-medrol) VIAL (J1030) As Ordered ONE
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
== END ==
LOC: M PAIN 09:00
PROVIDERS: ATTEND Nurse Practitioner Family
DX: M46.1 Sacroiliitis, not elsewhere classified (principal); G80.1 Spastic diplegic cerebral palsy; I10 Essential (primary) hypertension; Z86.59 Personal history of other mental and behavioral disorders; E78.00 Pure hypercholesterolemia, unspecified; K21.9 Gastro-esophageal reflux disease without esophagitis; Z88.6 Allergy status to analgesic agent; Z88.8 Allergy status to other drugs, medicaments and biological substances; E66.01 Morbid (severe) obesity due to excess calories; Z68.41 Body mass index [BMI] 40.0-44.9, adult; Z98.84 Bariatric surgery status; Z79.899 Other long term (current) drug therapy

== ENCOUNTER → 2019-11-14 | Outpatient (CLI) | payer BC ==
--- NOTE | 2019-11-17 06:44 | ECWPNPC ---
PATIENT NAME: OCTAVIO HANLEY : 1980 GENDER: FEMALE VISIT DATE: 11/14/2019 DISCHARGE DATE: 11/14/19 1026 VISIT LOCKED DATE TIME: PHYSICIAN: LILLY FALCON RESOURCE: LILLY FALCON REASON FOR APPOINTMENT 1. DISCUSS TX PLAN/MEDS HISTORY OF PRESENT ILLNESS HISTORY OF PRESENT ILLNESS: HERE FOR FOLLOW-UP OF CHRONIC LOW BACK PAIN AND RIGHT LEG PAIN. HISTORY OF LUMBAR SURGERY SEVERAL YEARS AGO. HAD A FALL INJURY 4 MONTHS AGO AND SUSTAINED A LEFT SHOULDER INJURY. TODAY SHE IS REPORTING A 3 WEEK HISTORY OF INCREASE IN URINARY INCONTINENCE AND RIGHT LEG WEAKNESS. SHE IS ACCOMPANIED IN THE EXAM ROOM WITH HER MOTHER. HISTORY IS COMPLICATED WITH DIAGNOSIS OF CP WITH RIGHT SIDED WEAKNESS AND DEFORMITY. PATIENT IS VERY UPSET TODAY. RATING PAIN LEVEL AN 8/10 VAS. PAIN IS AWAKENING HER FROM SLEEP. PAIN THE PATIENT DESCRIBES THE PAIN... FALL RISK SCREENING: SCREENING :NO FALLS REPORTED IN THE LAST YEAR CURRENT MEDICATIONS TAKING ZESTORETIC 20-12.5 MG TABLET 1 TABLET ORALLY ONCE A DAY TAKING NORCO 7.5-325 MG TABLET 1 TABLET NEEDED ORALLY 1-2 Q4-6H MDD6 3MOS SUPPLY CAT D CHRONIC PAIN TAKING SOMA 350 MG TABLET 1 ORALLY BID PRN MDD2 3MOS SUPPLY CATD CHRONIC PAIN TAKING BACLOFEN 20 MG TABLET 1 TABLET WITH FOOD OR MILK ORALLY THREE TIMES A DAY TAKING VOLTAREN 1 % GEL DIRECTED TRANSDERMAL DAILY TAKING IBUPROFEN 200 MGS 2 TABS ORAL EVERY 6 HOURS NEEDED TAKING PRILOSEC 40 MG CAPSULE DELAYED RELEASE 1 CAPSULE ORALLY ONCE A DAY TAKING KLONOPIN 0.5 MG TABLET 1 TABLET ORALLY TWICE DAILY NEEDED FOR ANXIETY (MDD:2) CODE A TAKING VITAMIN D 2000 UNIT TABLET 1 TAB ORALLY ONCE A DAY TAKING DEPO-PROVERA 150 MG/ML SUSPENSION 1 INJECTION INTRAMUSCULAR ONCE EVERY 90 DAYS (ALFARO WOMAN) TAKING VESICARE 5 MG TABLET 1 TABLET ORALLY ONCE A DAY TAKING LEVOCETIRIZINE DIHYDROCHLORIDE 5 MG TABLET 1 TABLET IN THE EVENING ORALLY ONCE A DAY, NOTES: 05-16-19 0600 TAKING VITAMIN C 500 MG CAPSULE ORALLY ONCE A DAY TAKING MULTIVITAMINS 1 TABLET DIRECTED ORALLY DAILY TAKING BUSPAR 30 MG TABLET 1 TAB ORALLY TWICE A DAY TAKING VENLAFAXINE HCL 75 MG TABLET TAKE 2 TABLETS IN THE AM, AND 1 TABLET IN THE PM ORALLY DAILY NOT-TAKING DIFLUCAN 150 MG TABLET TAKE 1 TAB TODAY, MAY REPEAT IN 3 DAYS IF STILL HAVING SYMPTOMS ORALLY DAILY MEDICATION LIST REVIEWED AND RECONCILED WITH THE PATIENT PAST MEDICAL HISTORY CEREBAL PALSY WITH RIGHT SIDED SPASTICITY HTN, GOAL BP 130/80 PER AHA/ACC DEPRESSION/ANXIETY OBESITY, S/P GASTRIC SLEEVE LUMBAR DDD, S/P MULTIPLE DISCECTOMIES HYPERCHOLESTEROLEMIA GERD ALLERGIC RHINITIS SLEEP STUDY 10/29/11 NEG FOR SLEEP APNEA LEFT SHOULDER AND LEFT THORACIC PAIN RIGHT LEG PAIN ALLERGIES CELEBREX: FACIAL SWELLING - ALLERGY NAPROXEN: FACIAL SWELLING - ALLERGY SURGICAL HISTORY R HEEL CORD LENGTHENING 1984 ADNOIDECTOMY R BUNIONECTOMY X 2 1996 LUMBAR LAMINECTOMY 2004 LASER DISCECTOMY, L4-5 2005 LUMBAR LAMINECTOMY/DISCECTOMY 2009 " ", L2-3 2010 LAPROSCOPIC BAND (REALIZE BAND) - DR. KEEN 12/15/11 CEREBRAL PALSY RECONSTRUCTION RT HAND- [facility]THO [facility] 03/28 REMOVAL OF LAP BAND CONVERTED TO GASTRIC SLEEVE/REVISION- DR KEEN 07/2014 TONSILLECTOMY ([facility]) 01/2016 FAMILY HISTORY FATHER: ALIVE 62 YRS, DIAGNOSED WITH UNSPECIFIED NONPSYCHOTIC MENTAL DISORDER FOLLOWING ORGANIC BRAIN DAMAGE, HYPERTENSION MOTHER: ALIVE 60 YRS, H/O MELANOMA, PRE-DIABETIC, GRAVE'S DISEASE WITH SECONDARY HYPOTHYROIDISM, LIPIDS, HTN, ANXIETY, DIABETES, HYPERTENSION, OTHER SPECIFIED CONDITIONS INFLUENCING HEALTH STATUS SIBLINGS: BROTHER (1) - BIPOLAR DISORDER, SCHIZOPHRENIA PATERNAL GRAND FATHER: , OF SOME SORT OF CANCER PATERNAL GRAND MOTHER: , OF MOM-HYPOTHYROID, PRE-DIABETIC\\NPATERNAL GRANDPARENTS--CANCER. SOCIAL HISTORY GENERAL: TOBACCO USE ARE YOU A:NEVER SMOKER HIV / HEP-C SCREENING HIV TEST OFFERED TO PATIENT:YES DATE OFFERED:03/02/2018 TEST ACCEPTED:NO HEP-C TEST OFFERED TO PATIENT:YES DATE OFFERED:03/02/2018 REASON:PATIENT DECLINED TEST ACCEPTED:NO REASON:PATIENT DECLINED BROCHURE PROVIDED TO PATIENTNO EDUCATION LEVEL OF EDUCATION:COLLEGE DIET: REGULAR, UNFORTUNATELY EATING MORE PROCESSED FOOD THAN SHE SHOULD. LANGUAGE LANGUAGES SPOKEN:TURKMEN DOMESTIC VIOLENCE DO YOU FEEL SAFE IN YOUR ENVIRONMENT?YES NEW PATIENT PAIN DIARY TODAY'S VISITNOTES BMI CARE GOAL FOLLOW-UP ABOVE NORMAL BMI FOLLOW-UPDIETARY MANAGEMENT EDUCATION, GUIDANCE, AND COUNSELING RECREATIONAL DRUG USE DRUG USE?NO EXERCISE: WALKS DAILY. LEARNING BARRIERS / SPECIAL NEEDS CHANGE FROM LAST VISIT?NO BARRIERS TO LEARNING?NO HEARING IMPAIRED?NO VISION IMPAIRED?NO COGNITIVELY IMPAIRED?NO READINESS TO LEARN?YES LEARNING PREFERENCES?NO LEARNING CAPABILITIES PRESENT?YES EMOTIONAL BARRIERS?NO SPECIAL DEVICES?NO TERRITORY ACCOUNT EXECUTIVE NEEDED?NO PAIN CLINIC PFS, CLERGY, PUBLIC HEALTH REFERRALS PFS REFERRAL NEEDED?NO CLERGY REFERRAL NEEDED?NO PUBLIC HEALTH REFERRAL NEEDED?NO WAS THE PROVIDER NOTIFIED OF ANY PERTINENT INFO? N/A HAS THE PATIENT BEEN EDUCATED REGARDING HIS/HER PLAN OF CARE?YES HAS THE PATIENT BEEN EDUCATED REGARDING PAIN, THE RISK FOR PAIN, THE IMPORTANCE OF EFFECTIVE PAIN MANAGEMENT, AND THE PAIN ASSESSMENT PROCESS?YES LATEX QUESTIONNAIRE LATEX ALLERGY : HAVE YOU EVER DEVELOPED ANY TYPE OF REACTION AFTER HANDLING LATEX PRODUCTS SUCH RUBBER GLOVES, CONDOMS, DIAPHRAGMS, BALLOONS, SOCKS, OR UNDERWEAR?NO LATEX ALLERGY : HAVE YOU EVER DEVELOPED ANY TYPE OF REACTION DURING OR AFTER DENTAL APPOINTMENT, VAGINAL/RECTAL EXAMINATION, SURGICAL PROCEDURE, OR ANY OTHER EXPOSURE?NO LATEX RISK : HAVE YOU EVER HAD ANY DIFFICULTY BREATHING OR HIVES AFTER EATING OR HANDLING ANY FRUITS, OR VEGETABLES; SUCH KIWI, BANANAS, STONE FRUITS, OR CHESTNUTSNO LATEX RISK : DO YOU HAVE A PREVIOUS PERSONAL HISTORY OF MORE THAN NINE SURGERIES, SPINA BIFIDA, OR REPEATED CATHERIZATIONS? YES - PLEASE INDICATE : > 9 SURGERIES LATEX RISK : ARE YOU FREQUENTLY EXPOSED TO LATEX PRODUCTS IN YOUR OCCUPATION?NO DATE ASKED : 06/14/2019 CAFFEINE CAFFEINE USE?YES HOW OFTEN AND HOW MUCH? 2 CUPS PER DAY ADVANCE DIRECTIVE ADVANCE DIRECTIVE DISCUSSED WITH PATIENT:YES HCP MOM-PAOLA GIBBONS [phone] SABIANISM [id number] NONE MARITAL STATUS: SINGLE. 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 SEXUAL HX HAD SEX IN THE LAST 12 MONTHS (VAGINAL, ORAL, OR ANAL)?NO HAVE YOU EVER HAD AN STD?NO 05/16/18 0900 REVIEWED WITH PTJasvir OWENS01/31/19 REVIEWED WITH PTJasvir OWENS06/14/19 REVIEWED WITH PT. WORRELL WITH PATIENT 11/14/2019 0933 JS. HOSPITALIZATION/MAJOR DIAGNOSTIC PROCEDURE SURGICAL ONLY REVIEW OF SYSTEMS REVIEWED BY: PROVIDER: LILLY AGUILAR . CONSTITUTIONAL: ANY CHANGE IN YOUR MEDICAL CONDITION? YES, STATES RIGHT LEG PAIN AND IS HAVING TROUBLE BEARING WEIGHT ON RIGHT LEG . CHILLS NO . FEVER NO . INFECTION: DO YOU HAVE NEW INFECTIONS? NO . DO YOU HAVE HISTORY OF MRSA? NO . MUSCULOSKELETAL: ANY NEW PATTERNS OF PAIN OR NUMBNESS? YES, INCREASED PAIN TO RIGHT LEG - STARTED APPROX 11 DAYS AGO . GASTROENTEROLOGY: ANY NEW CHANGE IN BOWEL CONTROL? NO . GENITOURINARY: ANY NEW CHANGE IN BLADDER CONTROL? YES, URINARY LEAKAGE AND DOES NOT FEEL HERSELF GOING - BECOMES WORSE WHEN PAIN IS WORSE . IS THERE A CHANCE YOU COULD BE ? NO . HEMATOLOGY/LYMPH: DO YOU TAKE ANY BLOOD THINNERS? (FOR EXAMPLE- COUMADIN, PLAVIX, AGGRENOX, PLATEL, PRADAXA, OR XARELTO) NO . WHEN WAS YOUR LAST DOSE? DATE: TIME: . NEUROLOGY: HAVE YOU FALLEN IN THE PAST 12 MONTHS? YES, STATES FALL APPROX 4 MONTHS AGO TRIPPING GETTTING OUT THE SHOWER. FELL ON GROIN AND ROLLED INTO SHOWER. STATES NO ED VISIT . ANY NEW EXTREMITY NUMBNESS OR WEAKNESS? YES, WEAKNESS AND PAIN TO RIGHT LEG . CARDIOLOGY: DO YOU HAVE A PACEMAKER OR DEFIBRILLATOR? NO . RESPIRATORY: HAVE YOU BEEN SICK IN THE PAST WEEK? NO . FEVER NO . FLU LIKE SYMPTOMS? NO . COUGH NO . INTEGUMENTARY: DO YOU HAVE ANY RASHES OR OPEN SORES? NO . ALLERGIC/IMMUNO: ARE YOU ALLERGIC TO IV DYE? NO . ANY NEW ALLERGIES? NO . PSYCHIATRIC: DO YOU HAVE THOUGHTS OF HURTING YOURSELF OR SOMEONE ELSE? NO . ARE YOU ABUSED, NEGLECTED, OR IN AN UNSAFE ENVIRONMENT? NO . ENDOCRINOLOGY: ARE YOU DIABETIC? NO . OTHER: DO YOU NEED ANY PRESCRIPTIONS? NO . IF YES, PLEASE LIST: ____ . ANY NEW PROBLEMS WITH YOUR MEDICATIONS? NO . WHEN DID YOU LAST EAT? ____ . WHEN DID YOU LAST DRINK? ____ . WHAT DID YOU LAST DRINK? ____ . NAME OF PERSON DRIVING YOU HOME? ____ . DO YOU HAVE ANY OTHER QUESTIONS OR CONCERNS NO . VITAL SIGNS WT 288 LBS, HT 70 IN, BMI 41.32 INDEX, BP 162/85 MM HG, HR 107 /MIN, RR 18 /MIN, TEMP 97.6 F, OXYGEN SAT % 97%, SAFE IN ENV? (Y/N) YES, REVIEWED BY: DRISS. EXAMINATION GENERAL EXAMINATION: GENERALACCOMPANIED IN THE EXAM ROOM WITH HER MOTHER . UPSET DUE TO PAIN . LUNGS:CLEAR TO AUSCULTATION BILATERALLY, NO WHEEZES, RHONCHI, RALES. HEART:NO MURMURS, REGULAR RATE AND RHYTHM. MUSCULOSKELETAL:WEAKNESS NOTED OVER RIGHT LEG.. ASSESSMENTS RIGHT LEG WEAKNESS - R29.898 (PRIMARY) TREATMENT RIGHT LEG WEAKNESS [facility] MRI LS SPINE W/O AND WITH [id number] NOTES: DUE TO NEW ONSET OF INCREASED RIGHT LEG WEAKNESS AND INCREASE IN URINARY INCONTINENCE,I'M RECOMMENDING MRI L/S SPINE TO R/O CAUDA EQUINA SYNDROME.ADVISED TO BE SEEN IN THE EMERGENCY ROOM TODAY. [facility] BOTH SHE AND HER MOTHER ARE AWARE OF THE CONSEQUENCES OF NOT HAVING THESE SYMPTOMS EVALUATED IN THE ER SETTING. DISCUSSED SIGNS AND SYMPTOMS OF CAUDA EQUINA SYNDROME AND SERIOUS NATURE AND CONSEQUENCES OF THIS CONDITION. THIS DISCUSSION TOOK PLACE WITH BOTH PATIENT AND HER MOTHER. PROCEDURE CODES FA211 ESTABILISHED PATIENT LOCATED WITHIN [facility] CHARGE DISPOSITION & COMMUNICATION FOLLOW UP 4-WKS-6WKS ELECTRONICALLY SIGNED BY JEFF PALACIOS ON 11/16/2019 AT 04:16 PM EST DISCLAIMER : THIS IS A VISIT SUMMARY EXTRACTED FROM THE [employer] CHART. IT IS NOT A COPY OF THE [employer] PROGRESS NOTE. ANNMARIE
== END ==
LOC: M PAIN 09:15
PROVIDERS: ATTEND Nurse Practitioner Family
DX: R29.898 Other symptoms and signs involving the musculoskeletal system (principal); G89.29 Other chronic pain; G80.9 Cerebral palsy, unspecified; I10 Essential (primary) hypertension; Z86.59 Personal history of other mental and behavioral disorders; E78.00 Pure hypercholesterolemia, unspecified; K21.9 Gastro-esophageal reflux disease without esophagitis; Z98.84 Bariatric surgery status; Z88.6 Allergy status to analgesic agent; Z88.8 Allergy status to other drugs, medicaments and biological substances; E66.01 Morbid (severe) obesity due to excess calories; Z68.41 Body mass index [BMI] 40.0-44.9, adult; Z79.899 Other long term (current) drug therapy

== ENCOUNTER → 2020-01-03 | Outpatient (REF) | payer BC | LOC: M SFHCPLAZ 16:50 | PROVIDERS: ATTEND Family Medicine | DX: J06.9 Acute upper respiratory infection, unspecified (principal) | CPT/HCPCS: 87486; 87581; 87633; 87798; U0002 ==

== ENCOUNTER → 2020-04-09 | Outpatient (CLI) | payer BC ==
--- NOTE | 2020-04-12 01:56 | ECWPNPC ---
PATIENT NAME: OCTAVIO HANLEY : 1980 GENDER: FEMALE VISIT DATE: 04/09/2020 DISCHARGE DATE: 04/09/20 1231 VISIT LOCKED DATE TIME: PHYSICIAN: LILLY FALCON RESOURCE: LILLY FALCON REASON FOR APPOINTMENT 1. LOW BACK HISTORY OF PRESENT ILLNESS GENERAL: HERE FOR FOLLOW-UP OF CHRONIC LOW BACK PAIN WITH A HISTORY OF POSTLAMINECTOMY PAIN SYNDROME. AT HER LAST VISIT IN OCTOBER, SHE WAS HAVING DIFFICULTY WITH SEVERE INCREASE IN PAIN AND MORE FREQUENT EPISODES OF URINARY STRESS INCONTINENCE. IT WAS ADVISED THAT SHE HAVE AN MRI OF THE LS-SPINE AND BE EVALUATED AT THE ER. SHE ADMITS THAT THIS WAS NOT DONE SHE WAS FEARFUL OF MISSING WORK AND INABILITY TO PAY BILLS. SHE GRADUALLY GOT BETTER. SHE HAS BEEN WORKING. REPORTING LESS EPISODES OF URINARY STRESS INCONTINENCE. DENIES BOWEL INCONTINENCE. DISCUSSED TREATMENT PLAN. -. FALL RISK SCREENING: SCREENING :NO FALLS REPORTED IN THE LAST YEAR PAIN SCREENING: PATIENT HAS A COMPLAINT OF ACUTE OR CHRONIC PAIN :YES LOCATION OF PAIN: RIGHT BUTTOCKS EXTENDING DOWN RIGHT LEG, ALSO REPORTS AN INTERMITTANT PAIN LEFT BUTTOCKS EXTENDING DOWN LEFT LEG INTENSITY OF PAIN (SCALE OF 1 TO 10):5 WHAT DOES YOUR PAIN FEEL LIKE:SHARP, SHOOTING PAIN IS INCREASED BY:PROLONGED STANDING PROLONGED SITTING PAIN IS DECREASED BY: STRETCHES, EXERCISES NURSING NOTE: -. PAIN CENTER INTAKE QUESTIONS: DO YOU HAVE A HISTORY OF MRSA? :NO DO YOU TAKE A BLOOD THINNERS? :NO DO YOU HAVE ANY BLEEDING DISORDERS? :NO ANY NEW NUMBNESS OR WEAKNESS IN YOUR LEGS OR ARMS? :NO ANY PACEMAKER,DEFIBRILLATOR, OR DORSAL COLUMN STIMULATOR? :NO DO YOU HAVE ANY RASHES OR OPEN SORES? :NO ARE YOU ALLERGIC TO IV DYE? :NO ARE YOU DIABETIC? :NO ANY NEW PROBLEMS WITH YOUR MEDICATIONS? :NO HAVE YOU RECEIVED A VACCINE IN THE PAST 30 DAYS? :NO DO YOU PLAN TO RECEIVE A VACCINE IN THE NEXT 21 DAYS? :NO DO YOU NEED ANY PRESCRIPTION? :YES HYDROCODONE, CARISOPRODOL DO YOU TAKE ANY IMMUNOSUPPRESSIVE MEDICATIONS? :NO IS THERE A CHANCE YOU COULD BE ? :NO ARE YOU BREAST FEEDING? :NO CURRENT MEDICATIONS TAKING ZESTORETIC 20-12.5 MG TABLET 1 TABLET ORALLY ONCE A DAY TAKING VOLTAREN 1 % GEL DIRECTED TRANSDERMAL DAILY TAKING IBUPROFEN 200 MGS 2 TABS ORAL EVERY 6 HOURS NEEDED TAKING VITAMIN D 2000 UNIT TABLET 1 TAB ORALLY ONCE A DAY TAKING DEPO-PROVERA 150 MG/ML SUSPENSION 1 INJECTION INTRAMUSCULAR ONCE EVERY 90 DAYS (ALFARO WOMAN) TAKING VESICARE 5 MG TABLET 1 TABLET ORALLY ONCE A DAY TAKING LEVOCETIRIZINE DIHYDROCHLORIDE 5 MG TABLET 1 TABLET IN THE EVENING ORALLY ONCE A DAY, NOTES: 05-16-19 0600 TAKING VITAMIN C 500 MG CAPSULE ORALLY ONCE A DAY TAKING MULTIVITAMINS 1 TABLET DIRECTED ORALLY DAILY TAKING BUSPAR 30 MG TABLET 1 TAB ORALLY TWICE A DAY TAKING VENLAFAXINE HCL 75 MG TABLET TAKE 2 TABLETS IN THE AM, AND 1 TABLET IN THE PM ORALLY DAILY TAKING SOMA 350 MG TABLET 1 ORALLY BID PRN MDD2 3MOS SUPPLY CATD CHRONIC PAIN TAKING DEPO-PROVERA 150 MG/ML SUSPENSION 1 ML INTRAMUSCULAR ONCE DAILY EVERY 3 MONTHS TAKING HYDROCODONE-ACETAMINOPHEN 7.5-325 MG TABLET 1 TO2 TAB ORALLY Q4-6HR MDD6 3 MOS SUPPLY CATD CHRONIC PAIN TAKING KLONOPIN 0.5 MG TABLET 1 TABLET ORALLY TWICE DAILY NEEDED FOR ANXIETY (MDD:2) CODE A TAKING BACLOFEN 20 MG TABLET 1 TABLET WITH FOOD OR MILK ORALLY THREE TIMES A DAY TAKING PRILOSEC 40 MG CAPSULE DELAYED RELEASE 1 CAPSULE ORALLY ONCE A DAY TAKING NORCO 7.5-325 MG TABLET 1 TABLET NEEDED ORALLY 1-2 Q4-6H MDD6 3MOS SUPPLY CAT D CHRONIC PAIN NOT-TAKING ZOFRAN 4 MG TABLET 1 TABLET ORALLY BID NOT-TAKING DIFLUCAN 150 MG TABLET TAKE 1 TAB TODAY, MAY REPEAT IN 3 DAYS IF STILL HAVING SYMPTOMS ORALLY DAILY PAST MEDICAL HISTORY CEREBAL PALSY WITH RIGHT SIDED SPASTICITY HTN, GOAL BP 130/80 PER AHA/ACC DEPRESSION/ANXIETY OBESITY, S/P GASTRIC SLEEVE LUMBAR DDD, S/P MULTIPLE DISCECTOMIES HYPERCHOLESTEROLEMIA GERD ALLERGIC RHINITIS SLEEP STUDY 10/29/11 NEG FOR SLEEP APNEA LEFT SHOULDER AND LEFT THORACIC PAIN RIGHT LEG PAIN ALLERGIES CELEBREX: FACIAL SWELLING - ALLERGY NAPROXEN: FACIAL SWELLING - ALLERGY SURGICAL HISTORY R HEEL CORD LENGTHENING 1984 ADNOIDECTOMY R BUNIONECTOMY X 2 1996 LUMBAR LAMINECTOMY 2004 LASER DISCECTOMY, L4-5 2005 LUMBAR LAMINECTOMY/DISCECTOMY 2009 " ", L2-3 2009 LAPROSCOPIC BAND (REALIZE BAND) - DR. KEEN 12/15/11 CEREBRAL PALSY RECONSTRUCTION RT HAND- [facility] 03/28 REMOVAL OF LAP BAND CONVERTED TO GASTRIC SLEEVE/REVISION- DR KEEN 07/2014 TONSILLECTOMY ([facility]) 01/2016 FAMILY HISTORY FATHER: ALIVE 62 YRS, DIAGNOSED WITH UNSPECIFIED NONPSYCHOTIC MENTAL DISORDER FOLLOWING ORGANIC BRAIN DAMAGE, HYPERTENSION MOTHER: ALIVE 60 YRS, H/O MELANOMA, PRE-DIABETIC, GRAVE'S DISEASE WITH SECONDARY HYPOTHYROIDISM, LIPIDS, HTN, ANXIETY, DIABETES, HYPERTENSION, OTHER SPECIFIED CONDITIONS INFLUENCING HEALTH STATUS SIBLINGS: BROTHER (1) - BIPOLAR DISORDER, SCHIZOPHRENIA PATERNAL GRAND FATHER: , OF SOME SORT OF CANCER PATERNAL GRAND MOTHER: , OF MOM-HYPOTHYROID, PRE-DIABETIC\\NPATERNAL GRANDPARENTS--CANCER. SOCIAL HISTORY GENERAL: TOBACCO USE ARE YOU A:NEVER SMOKER LATEX QUESTIONNAIRE LATEX ALLERGY : HAVE YOU EVER DEVELOPED ANY TYPE OF REACTION AFTER HANDLING LATEX PRODUCTS SUCH RUBBER GLOVES, CONDOMS, DIAPHRAGMS, BALLOONS, SOCKS, OR UNDERWEAR?NO LATEX ALLERGY : HAVE YOU EVER DEVELOPED ANY TYPE OF REACTION DURING OR AFTER DENTAL APPOINTMENT, VAGINAL/RECTAL EXAMINATION, SURGICAL PROCEDURE, OR ANY OTHER EXPOSURE?NO DATE ASKED : 06/14/2019 LATEX RISK : HAVE YOU EVER HAD ANY DIFFICULTY BREATHING OR HIVES AFTER EATING OR HANDLING ANY FRUITS, OR VEGETABLES; SUCH KIWI, BANANAS, STONE FRUITS, OR CHESTNUTSNO LATEX RISK : DO YOU HAVE A PREVIOUS PERSONAL HISTORY OF MORE THAN NINE SURGERIES, SPINA BIFIDA, OR REPEATED CATHERIZATIONS? YES - PLEASE INDICATE : > 9 SURGERIES LATEX RISK : ARE YOU FREQUENTLY EXPOSED TO LATEX PRODUCTS IN YOUR OCCUPATION?NO BMI CARE GOAL FOLLOW-UP ABOVE NORMAL BMI FOLLOW-UPDIETARY MANAGEMENT EDUCATION, GUIDANCE, AND COUNSELING ALCOHOL SCREENING DID YOU HAVE A DRINK CONTAINING ALCOHOL IN THE PAST YEAR?YES HOW OFTEN DID YOU HAVE SIX OR MORE DRINKS ON ONE OCCASION IN THE PAST YEAR?LESS THAN MONTHLY (1 POINT) HOW MANY DRINKS DID YOU HAVE ON A TYPICAL DAY WHEN YOU WERE DRINKING IN THE PAST YEAR?1 OR 2 (0 POINTS) HOW OFTEN DID YOU HAVE A DRINK CONTAINING ALCOHOL IN THE PAST YEAR?MONTHLY OR LESS (1 POINT) POINTS2 INTERPRETATIONNEGATIVE RECREATIONAL DRUG USE DRUG USE?NO CAFFEINE CAFFEINE USE?YES HOW OFTEN AND HOW MUCH? 2 CUPS PER DAY SEXUAL HX HAD SEX IN THE LAST 12 MONTHS (VAGINAL, ORAL, OR ANAL)?NO HAVE YOU EVER HAD AN STD?NO HIV / HEP-C SCREENING HIV TEST OFFERED TO PATIENT:YES DATE OFFERED:03/02/2018 TEST ACCEPTED:NO HEP-C TEST OFFERED TO PATIENT:YES DATE OFFERED:03/02/2018 REASON:PATIENT DECLINED TEST ACCEPTED:NO REASON:PATIENT DECLINED BROCHURE PROVIDED TO PATIENTNO ANGLICAN [id number] NONE LANGUAGE LANGUAGES SPOKEN:CITIZEN OF [place] EDUCATION LEVEL OF EDUCATION:COLLEGE LEARNING BARRIERS / SPECIAL NEEDS CHANGE FROM LAST VISIT?NO BARRIERS TO LEARNING?NO HEARING IMPAIRED?NO VISION IMPAIRED?NO COGNITIVELY IMPAIRED?NO READINESS TO LEARN?YES LEARNING PREFERENCES?NO LEARNING CAPABILITIES PRESENT?YES EMOTIONAL BARRIERS?NO SPECIAL DEVICES?NO PELLET MACHINE OPERATOR NEEDED?NO DOMESTIC VIOLENCE DO YOU FEEL SAFE IN YOUR ENVIRONMENT?YES 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 DIET: REGULAR, UNFORTUNATELY EATING MORE PROCESSED FOOD THAN SHE SHOULD. EXERCISE: WALKS DAILY. MARITAL STATUS: SINGLE. NEW PATIENT PAIN DIARY TODAY'S VISITNOTES PAIN CLINIC PFS, CLERGY, PUBLIC HEALTH REFERRALS PFS REFERRAL NEEDED?NO CLERGY REFERRAL NEEDED?NO PUBLIC HEALTH REFERRAL NEEDED?NO WAS THE PROVIDER NOTIFIED OF ANY PERTINENT INFO? N/A HAS THE PATIENT BEEN EDUCATED REGARDING HIS/HER PLAN OF CARE?YES HAS THE PATIENT BEEN EDUCATED REGARDING PAIN, THE RISK FOR PAIN, THE IMPORTANCE OF EFFECTIVE PAIN MANAGEMENT, AND THE PAIN ASSESSMENT PROCESS?YES ADVANCE DIRECTIVE ADVANCE DIRECTIVE DISCUSSED WITH PATIENT:YES HCP JEROdettePAOLA GIBBONS [phone] 05/16/18 0900 REVIEWED WITH PT. AD01/31/19 REVIEWED WITH PT. AD06/14/19 REVIEWED WITH PT. ANAID WITH PATIENT 11/14/2019 0933 JS. HOSPITALIZATION/MAJOR DIAGNOSTIC PROCEDURE SURGICAL ONLY REVIEW OF SYSTEMS CONSTITUTIONAL: ANY RECENT FEVER NO . CHILLS NO . WEIGHT CHANGE OF UNKNOWN REASONS NO . GASTROENTEROLOGY: NEW UNEXPLAINABLE CHANGES IN BOWEL CONTROL NO . CONSTIPATION NO . GENITOURINARY: ANY NEW CHANGE IN BLADDER CONTROL? NO . NEUROLOGY: NEW ONSET DIZZINESS OR NEUROLOGICAL CHANGES NOT MENTIONED NO . NEW NUMBNESS OR PAIN PATTERNS NOT MENTIONED AND PERTINENT TO TODAY'S VISIT NO . CARDIOLOGY: NEW CHEST PRESSURE NO . NEW CHEST PAIN NO . RESPIRATORY: UNEXPLAINABLE COUGH NO . NEW SHORTNESS OF BREATH NO . VITAL SIGNS WT 286.2 LBS, HT 70 IN, BMI 41.06 INDEX, BP 151/76 MM HG, HR 113 /MIN, RR 18 /MIN, TEMP 96.5 F, OXYGEN SAT % 97%, NA INITIALS SC 11:42. EXAMINATION GENERAL EXAMINATION: GENERALACCOMPANIED IN THE EXAM ROOM WITH HER MOTHER . UPSET DUE TO PAIN . LUNGS:CLEAR TO AUSCULTATION BILATERALLY, NO WHEEZES, RHONCHI, RALES. HEART:NO MURMURS, REGULAR RATE AND RHYTHM. MUSCULOSKELETAL:WEAKNESS NOTED OVER RIGHT LEG.. ASSESSMENTS SACROILIITIS, NOT ELSEWHERE CLASSIFIED - M46.1 (PRIMARY) POST LAMINECTOMY SYNDROME - M96.1 CHRONIC PRESCRIPTION OPIATE USE - Z79.899 TREATMENT SACROILIITIS, NOT ELSEWHERE CLASSIFIED CONTINUE VOLTAREN GEL, 1 %, DIRECTED, TRANSDERMAL, DAILY CONTINUE IBUPROFEN, 200 MGS 2 TABS, ORAL, EVERY 6 HOURS NEEDED CONTINUE SOMA TABLET, 350 MG, 1, ORALLY, BID PRN MDD2 3MOS SUPPLY CATD CHRONIC PAIN CONTINUE HYDROCODONE-ACETAMINOPHEN TABLET, 7.5-325 MG, 1 TO2 TAB, ORALLY, Q4-6HR MDD6 3 MOS SUPPLY CATD CHRONIC PAIN [facility] MRI LS SPINE W/O AND WITH [id number] NOTES: ISTOP REGISTRY REVIEWED AND DEMONSTRATES COMPLLIANCE. RECENT URINE TOXICOLOGY REVIEWED. NO UNAUTHORIZED MEDICATIONS. NO ILLICIT SUBSTANCES AND PRESCRIBED MEDICATIONS WERE PRESENT. URINE TOXICOLOGY TODAY REMINDED TO BRING PAIN MEDICATIONS TO EVERY VISIT , RISKS OF NARCOTIC/OPIOD MEDICATIONS INCLUDES BUT IS NOT LIMITED TO RISK OF DEPENDANCE/DEVELOPMENT OF ADDICTION, MOOD DISTURBANCE AND DEPRESSION, OSTEOPOROSIS, HORMONAL AND LABIDAL CHANGES, RESPIRATORY DEPRESSION AND . PATIENT IS ADVISED NOT TO DRIVE OR DRINK ALCOHOL WHILE ON THESE MEDICATIONS. POST LAMINECTOMY SYNDROME [facility] MRI LS SPINE W/O AND WITH [id number] PROCEDURE CODES FA211 ESTABILISHED PATIENT [facility] CHARGE DISPOSITION & COMMUNICATION FOLLOW UP 3 MONTHS (REASON: MED MANAGEMENT/LOW BACK PAIN) ELECTRONICALLY SIGNED BY JEFF PALACIOS ON 04/11/2020 AT 11:57 AM EDT DISCLAIMER : THIS IS A VISIT SUMMARY EXTRACTED FROM THE [employer] CHART. IT IS NOT A COPY OF THE [employer] PROGRESS NOTE. SHAROND
== END ==
LOC: M PAIN 11:30
PROVIDERS: ATTEND Nurse Practitioner Family
DX: M46.1 Sacroiliitis, not elsewhere classified (principal); M96.1 Postlaminectomy syndrome, not elsewhere classified; Z79.899 Other long term (current) drug therapy

== ENCOUNTER → 2020-05-02 | Outpatient (CLI) | payer BC ==
[~2020-05-02] MED LIST changes: +PROHANCE 279.3MG/ML 15ML VIAL As Ordered ONE; +PROHANCE 279.3MG/ML 5ML VIAL As Ordered ONE
--- NOTE | 2020-05-02 17:15 | REPVR ---
PROCEDURE INFORMATION: Exam: MR Lumbar Spine Without and With Contrast. Exam date and time: 05/02/2020 1:19 PM Age: 39 years old Clinical indication: Pain and condition or disease; Other: Sacriolitis, post laminectomy syndrome; Prior surgery; Surgery date: 6+ months TECHNIQUE: Imaging protocol: Multiplanar magnetic resonance images of the lumbar spine without and with intravenous contrast. 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 Multi level Modic type 2 endplate signal changes. Generalized loss of normal signal within the discs on the T2 weighted sequences. Spinal cord: Normal signal. No cord compression. Conus posterior to T12-L1. No masses in the conus. Straightened normal lumbar lordosis. L1-L2: Broad-based right posterolateral disc bulge. Mild impression upon the ventral margin thecal sac. Mild central stenosis. No change from previous.. . No neural foraminal stenosis. L2-L3: Broad-based posterior disc bulge with impression upon the ventral margin of the thecal sac. Small circumferential annular tear posteriorly. Posterior marginal osteophytes. Narrowed disc space. Mild central stenosis.. No change. No neural foraminal stenosis. L3-L4: Small left posterolateral disc protrusion with impression upon the ventral margin of the thecal sac. Narrowed intervertebral disc space. Narrowed right lateral recess. Mild central stenosis. Facet arthropathy particularly on the right. L4-L5: Small left posterolateral disc protrusion with impression upon the ventral margin of the thecal sac . Narrowed disc space with posterior marginal osteophytes. No significant spinal canal stenosis. Mild narrowing left lateral recess. Michael laminotomy defect suggested on the right. No change. Facet arthropathy particularly on the right. L5-S1: No significant disc disease. No significant spinal canal stenosis. No neural foraminal stenosis. Soft tissues: Postsurgical changes noted within the posterior paraspinal soft tissues from L2 through L5. No areas of abnormal enhancement. IMPRESSION: Stable degenerative changes and facet arthropathy. Stable postsurgical changes. Electronically signed by: Juana Lacy On 05/02/2020 17:14:37 PM
== END ==
LOC: M RAD 11:25
PROVIDERS: ATTEND Nurse Practitioner Family
DX: M46.1 Sacroiliitis, not elsewhere classified (principal); M96.1 Postlaminectomy syndrome, not elsewhere classified; M51.26 Other intervertebral disc displacement, lumbar region; M25.78 Osteophyte, vertebrae
CPT/HCPCS: 72158; A9576

== ENCOUNTER → 2020-06-11 | Outpatient (CLI) | payer BC ==
[~2020-06-11] MED LIST changes: -PROHANCE 279.3MG/ML 15ML VIAL As Ordered ONE; -PROHANCE 279.3MG/ML 5ML VIAL As Ordered ONE
[2020-06-11 12:52] LABS: HEMATOCRIT 36.2 % (36.0-47.0); HEMOGLOBIN 12.9 g/dl (12.0-15.5); MEAN CORPUSCULAR HEMOGLOBIN 33.2 pg (27.0-33.0); MEAN CORPUSCULAR HGB CONC 35.6 g/dl (32.0-36.5); MEAN CORPUSCULAR VOLUME 93.1 fl (80.0-96.0); PLATELET COUNT, AUTOMATED 241 10^3/uL (150-450); RED BLOOD COUNT 3.89 10^6/uL (4.00-5.40); WHITE BLOOD COUNT 6.5 10^3/uL (4.0-10.0)
[2020-06-11 13:51] LABS: ALBUMIN 3.5 GM/DL (3.2-5.2); ALT/SGPT 64 U/L (12-78); BILIRUBIN,TOTAL 0.7 MG/DL (0.2-1.0); BLOOD UREA NITROGEN 12 MG/DL (7-18); CALCIUM LEVEL 8.4 MG/DL (8.5-10.1); CARBON DIOXIDE LEVEL 27 MEQ/L (21-32); CHLORIDE LEVEL 103 MEQ/L (98-107); CK-MB VALUE MASS 5.4 NG/ML (<3.6); CPK CREATINE PHOSPHOKINASE 777 U/L (26-192); GLOMERULAR FILTRATION RATE > 60.0 (>60); GLUCOSE, FASTING 92 MG/DL (70-100); MB/CK RELATIVE INDEX 0.69 (< OR =4); POTASSIUM SERUM 2.9 MEQ/L (3.5-5.1); SODIUM LEVEL 140 MEQ/L (136-145); TOTAL PROTEIN 6.7 GM/DL (6.4-8.2)
[2020-06-11 14:19] LABS: TROPONIN I < 0.02 NG/ML (< 0.10)
[2020-06-11 18:00] LABS: MAGNESIUM LEVEL 1.3 MG/DL (1.8-2.4)
== END ==
LOC: M LAB 12:02
PROVIDERS: ATTEND Student in an Organized Health Care Education/Training Program
DX: R07.89 Other chest pain (principal)

== ENCOUNTER 2020-06-13 14:54 | Outpatient (CLI) | payer BC ==
[~2020-06-13] VITALS: Ht 177.8 cm; Wt 128.2 kg
[2020-06-13] MEDS ORDERED: MAGNESIUM SULFATE 1GM/100ML D5W BAG (10MG/ML) As Ordered ONE ×2 (15:13→16:16)
[2020-06-13 15:14] VITALS: BP 100/63
[2020-06-13] MEDS: MAG SULF 1GM/100ML (MAG RUN) X 2 DOSES (2GM TOTAL) IV SCH ×4 (15:22→16:17)
[2020-06-13] MEDS ORDERED: POTASSIUM CHLORIDE 10 MEQ SR TABLET PO ONE ×2 (15:30→19:00)
[2020-06-13 16:36] LABS: ALBUMIN 3.3 GM/DL (3.2-5.2); BLOOD UREA NITROGEN 10 MG/DL (7-18); CARBON DIOXIDE LEVEL 28 MEQ/L (21-32); CHLORIDE LEVEL 105 MEQ/L (98-107); CPK CREATINE PHOSPHOKINASE 247 U/L (26-192); CREATININE FOR GFR 0.77 MG/DL (0.55-1.30); GLOMERULAR FILTRATION RATE > 60.0 (>60); GLUCOSE, FASTING 87 MG/DL (70-100); MAGNESIUM LEVEL 1.7 MG/DL (1.8-2.4); PHOSPHORUS LEVEL 2.3 MG/DL (2.5-4.9); POTASSIUM SERUM 2.6 MEQ/L (3.5-5.1); SODIUM LEVEL 141 MEQ/L (136-145)
[2020-06-13 17:20] VITALS: BP 120/71
[2020-06-13 18:47] LABS: MAGNESIUM LEVEL 2.4 MG/DL (1.8-2.4); POTASSIUM SERUM 2.4 MEQ/L (3.5-5.1)
[2020-06-13 19:15] VITALS: BP 122/70
== END 2020-06-13 19:15 | disposition home or self-care (01) ==
LOC: M INFU 14:54
PROVIDERS: ATTEND Family Medicine
DX: E83.42 Hypomagnesemia (principal)
CPT/HCPCS: 36415; 80069; 82550; 83735; 84132; 96365; 96366; J3475

== ENCOUNTER → 2020-06-17 | Outpatient (CLI) | payer BC ==
[2020-06-17 14:24] LABS: ALBUMIN 3.6 GM/DL (3.2-5.2); BLOOD UREA NITROGEN 12 MG/DL (7-18); CARBON DIOXIDE LEVEL 26 MEQ/L (21-32); CHLORIDE LEVEL 110 MEQ/L (98-107); CPK CREATINE PHOSPHOKINASE 76 U/L (26-192); CREATININE FOR GFR 0.73 MG/DL (0.55-1.30); GLOMERULAR FILTRATION RATE > 60.0 (>60); GLUCOSE, FASTING 87 MG/DL (70-100); MAGNESIUM LEVEL 1.8 MG/DL (1.8-2.4); PHOSPHORUS LEVEL 2.9 MG/DL (2.5-4.9); POTASSIUM SERUM 4.7 MEQ/L (3.5-5.1); SODIUM LEVEL 142 MEQ/L (136-145)
== END ==
LOC: M LRY 09:54
PROVIDERS: ATTEND Family Medicine
DX: E87.6 Hypokalemia (principal); E83.42 Hypomagnesemia; R74.8 Abnormal levels of other serum enzymes

== ENCOUNTER → 2020-07-02 | Outpatient (CLI) | payer BC | LOC: M PAIN 09:37 | PROVIDERS: ATTEND Nurse Practitioner Family | DX: M96.1 Postlaminectomy syndrome, not elsewhere classified (principal); Z79.891 Long term (current) use of opiate analgesic ==

== ENCOUNTER → 2020-09-04 | Outpatient (REF) | payer BC | LOC: M SFHCLERA 10:49 | PROVIDERS: ATTEND Nurse Practitioner Family | DX: R30.0 Dysuria (principal) ==

== ENCOUNTER → 2020-09-25 | Outpatient (REF) | payer BC | LOC: M SFHCLERA 12:08 | PROVIDERS: ATTEND Nurse Practitioner Family | DX: J06.9 Acute upper respiratory infection, unspecified (principal) ==

== ENCOUNTER → 2020-09-26 | Outpatient (CLI) | payer BC ==
--- NOTE | 2020-09-26 10:12 | REP ---
INDICATION: VIRAL UPPER RESPIRATORY TRACT INFECTION. COMPARISON: March 14, 2014. TECHNIQUE: Two views.. FINDINGS: The lungs are well inflated and clear. There is a dextroconvex curve in the thoracic spine again noted. There are old healed rib fractures noted bilaterally involving the left 3rd and 4th ribs and the right 3rd and 4th ribs. Heart is not enlarged. Pleural angles are sharp. Pulmonary vasculature is not increased. No other bony abnormality is seen. IMPRESSION: No infiltrate seen. Healed bilateral 3rd and 4th rib fractures. Otherwise no active disease.. <Electronically signed by Ramesh Martinez > 09/26/20 [id number]
== END ==
LOC: M WUC 09:28
PROVIDERS: ATTEND Nurse Practitioner Family
DX: J06.9 Acute upper respiratory infection, unspecified (principal)

== ENCOUNTER → 2020-09-26 | Outpatient (CLI) | payer BC ==
[2020-09-26 13:12] LABS: BLOOD UREA NITROGEN 6 MG/DL (7-18); CALCIUM LEVEL 9.2 MG/DL (8.5-10.1); CARBON DIOXIDE LEVEL 26 MEQ/L (21-32); CHLORIDE LEVEL 102 MEQ/L (98-107); CREATININE FOR GFR 1.04 MG/DL (0.55-1.30); GLOMERULAR FILTRATION RATE > 60.0 (>60); GLUCOSE, FASTING 73 MG/DL (70-100); MAGNESIUM LEVEL 1.9 MG/DL (1.8-2.4); POTASSIUM SERUM 3.8 MEQ/L (3.5-5.1); SODIUM LEVEL 137 MEQ/L (136-145)
== END ==
LOC: M WUC 09:22
PROVIDERS: ATTEND Family Medicine
DX: E83.42 Hypomagnesemia (principal); E87.6 Hypokalemia

== ENCOUNTER → 2020-11-04 | Outpatient (CLI) | payer BC ==
[~2020-11-04] MED LIST changes: +LISI10TA22 PO; -LISI10TA4 PO
--- NOTE | 2020-11-06 23:44 | ECWPNPC ---
PATIENT NAME: OCTAVIO HANLEY : 1980 GENDER: FEMALE VISIT DATE: 11/04/2020 DISCHARGE DATE: 11/04/20 1314 VISIT LOCKED DATE TIME: PHYSICIAN: LILLY FALCON RESOURCE: LILLY FALCON REASON FOR APPOINTMENT 1. LOW BACK PAIN [phone] HISTORY OF PRESENT ILLNESS GENERAL: PATIENT IS AGREEABLE TO TELEPHONE VISIT TODAY. SHE IS HOMEBOUND DUE TO ACHILLES TENDON INJURY. REPORTS CURRENT CHRONIC PAIN MEDICATION IS HELPFUL AT REDUCING CHRONIC LOW BACK PAIN. DENIES ADVERSE EFFECTS WITH MEDICATION. SHE IS DUE TO COME INTO CLINIC FOR URINE TOXICOLOGY AND PILL IDENTIFICATION. - - -. FALL RISK SCREENING: SCREENING :ONE FALL WITH INJURY IN THE PAST YEAR WENT TO DOC PAIN SCREENING: PATIENT HAS A COMPLAINT OF ACUTE OR CHRONIC PAIN :YES LOCATION OF PAIN:LOW BACK INTENSITY OF PAIN (SCALE OF 1 TO 10):4 WHAT DOES YOUR PAIN FEEL LIKE:SHARP, SHOOTING DURATION:INTERMITTENT PAIN IS INCREASED BY:PROLONGED STANDING, OTHERS SITTING PAIN IS DECREASED BY:USE OF PAIN MEDICATIONS, OTHERS WALKING NURSING NOTE: - - -. PAIN CENTER INTAKE QUESTIONS: DO YOU HAVE A HISTORY OF MRSA? :NO DO YOU TAKE A BLOOD THINNERS? :NO DO YOU HAVE ANY BLEEDING DISORDERS? :NO ANY NEW NUMBNESS OR WEAKNESS IN YOUR LEGS OR ARMS? :NO ANY PACEMAKER,DEFIBRILLATOR, OR DORSAL COLUMN STIMULATOR? :NO DO YOU HAVE ANY RASHES OR OPEN SORES? :NO ARE YOU ALLERGIC TO IV DYE? :NO ARE YOU DIABETIC? :NO ANY NEW PROBLEMS WITH YOUR MEDICATIONS? :NO HAVE YOU RECEIVED A VACCINE IN THE PAST 30 DAYS? :YES IF SO WHAT VACCINE AND WHEN? COVID 10/30/20 THE 2ND ONE DO YOU PLAN TO RECEIVE A VACCINE IN THE NEXT 21 DAYS? :NO DO YOU NEED ANY PRESCRIPTION? :NO DO YOU TAKE ANY IMMUNOSUPPRESSIVE MEDICATIONS? :NO ANY HISTORY OF SEIZURES? :NO ANY HISTORY OF CARDIAC ISSUES OR EVENTS? :NO DO YOU HAVE SLEEP APNEA? :NO ANY RECENT HEAD INJURY? :NO DO YOU HAVE ANY NEW INFECTIONS? :NO IS THERE A CHANCE YOU COULD BE ? :NO ARE YOU BREAST FEEDING? :NO WHEN DID YOU LAST DRINK? : - DO YOU HAVE ANY OTHER QUESTIONS OR CONCERNS? : - CURRENT MEDICATIONS TAKING VITAMIN C 500 MG CAPSULE ORALLY ONCE A DAY TAKING MULTIVITAMINS 1 TABLET DIRECTED ORALLY DAILY TAKING DEPO-PROVERA 150 MG/ML SUSPENSION 1 ML INTRAMUSCULAR ONCE DAILY EVERY 3 MONTHS TAKING VOLTAREN 1 % GEL DIRECTED TRANSDERMAL DAILY TAKING IBUPROFEN 400 MGS 2 TABS ORAL EVERY 6 HOURS NEEDED TAKING VESICARE 5 MG TABLET 1 TABLET ORALLY ONCE A DAY TAKING BUSPAR 30 MG TABLET 1 TAB ORALLY TWICE A DAY TAKING VITAMIN D 25 MCG (1000 UT) TABLET 1 TABLET ORALLY ONCE A DAY TAKING BUPROPION HCL 75 MG TABLET 2 TABLETS ORALLY TWICE A DAY TAKING VENLAFAXINE HCL 75 MG TABLET TAKE 2 TABLETS IN THE AM, AND 1 TABLET IN THE PM ORALLY DAILY TAKING LISINOPRIL 20 MG TABLET 1 TABLET ORALLY ONCE A DAY TAKING PRILOSEC 40 MG CAPSULE DELAYED RELEASE 1 CAPSULE ORALLY ONCE A DAY TAKING ZOFRAN 4 MG TABLET 1 TABLET ORALLY BID TAKING BACLOFEN 20 MG TABLET 1 TABLET WITH FOOD OR MILK ORALLY THREE TIMES A DAY TAKING SOMA 350 MG TABLET 1 ORALLY BID PRN MDD2 3MOS SUPPLY CATD CHRONIC PAIN TAKING NORCO 7.5-325 MG TABLET 1 TABLET NEEDED ORALLY 1-2 Q4-6H MDD6 TAKING KLONOPIN 0.5 MG TABLET 1 TABLET ORALLY TWICE DAILY NEEDED FOR ANXIETY (MDD:2) CODE A NOT-TAKING ZESTORETIC 20-12.5 MG TABLET 1 TABLET ORALLY ONCE A DAY UNKNOWN LEVOCETIRIZINE DIHYDROCHLORIDE 5 MG TABLET 1 TABLET IN THE EVENING ORALLY ONCE A DAY, NOTES: 05-16-19 06 MEDICATION LIST REVIEWED AND RECONCILED WITH THE PATIENT PAST MEDICAL HISTORY CEREBAL PALSY WITH RIGHT SIDED SPASTICITY HTN, GOAL BP 130/80 PER AHA/ACC DEPRESSION/ANXIETY OBESITY, S/P GASTRIC SLEEVE LUMBAR DDD, S/P MULTIPLE DISCECTOMIES HYPERCHOLESTEROLEMIA GERD ALLERGIC RHINITIS SLEEP STUDY 10/29/11 NEG FOR SLEEP APNEA LEFT SHOULDER AND LEFT THORACIC PAIN RIGHT LEG PAIN ALLERGIES CELEBREX: FACIAL SWELLING - ALLERGY NAPROXEN: FACIAL SWELLING - ALLERGY SURGICAL HISTORY R HEEL CORD LENGTHENING 1984 ADNOIDECTOMY R BUNIONECTOMY X 2 1996 LUMBAR LAMINECTOMY 2004 LASER DISCECTOMY, L4-5 2005 LUMBAR LAMINECTOMY/DISCECTOMY 2009 " ", L2-3 2010 LAPROSCOPIC BAND (REALIZE BAND) - DR. KEEN 12/15/11 CEREBRAL PALSY RECONSTRUCTION RT HAND- ORTHO [facility] 03/28 REMOVAL OF LAP BAND CONVERTED TO GASTRIC SLEEVE/REVISION- DR KEEN 07/2014 TONSILLECTOMY ([facility]) 01/2016 FAMILY HISTORY FATHER: ALIVE 63 YRS, DIAGNOSED WITH UNSPECIFIED NONPSYCHOTIC MENTAL DISORDER FOLLOWING ORGANIC BRAIN DAMAGE, HYPERTENSION MOTHER: ALIVE 61 YRS, H/O MELANOMA, PRE-DIABETIC, GRAVE'S DISEASE WITH SECONDARY HYPOTHYROIDISM, LIPIDS, HTN, ANXIETY, HYPERTENSION, DIABETES, OTHER SPECIFIED CONDITIONS INFLUENCING HEALTH STATUS SIBLINGS: BROTHER (1) - BIPOLAR DISORDER, SCHIZOPHRENIA PATERNAL GRAND FATHER: , OF SOME SORT OF CANCER PATERNAL GRAND MOTHER: , OF MOM-HYPOTHYROID, PRE-DIABETIC\\NPATERNAL GRANDPARENTS--CANCER. SOCIAL HISTORY GENERAL: TOBACCO USE ARE YOU A:NEVER SMOKER LATEX QUESTIONNAIRE LATEX ALLERGY : HAVE YOU EVER DEVELOPED ANY TYPE OF REACTION AFTER HANDLING LATEX PRODUCTS SUCH RUBBER GLOVES, CONDOMS, DIAPHRAGMS, BALLOONS, SOCKS, OR UNDERWEAR?NO LATEX ALLERGY : HAVE YOU EVER DEVELOPED ANY TYPE OF REACTION DURING OR AFTER DENTAL APPOINTMENT, VAGINAL/RECTAL EXAMINATION, SURGICAL PROCEDURE, OR ANY OTHER EXPOSURE?NO LATEX RISK : HAVE YOU EVER HAD ANY DIFFICULTY BREATHING OR HIVES AFTER EATING OR HANDLING ANY FRUITS, OR VEGETABLES; SUCH KIWI, BANANAS, STONE FRUITS, OR CHESTNUTSNO LATEX RISK : DO YOU HAVE A PREVIOUS PERSONAL HISTORY OF MORE THAN NINE SURGERIES, SPINA BIFIDA, OR REPEATED CATHERIZATIONS? YES - PLEASE INDICATE : > 9 SURGERIES LATEX RISK : ARE YOU FREQUENTLY EXPOSED TO LATEX PRODUCTS IN YOUR OCCUPATION?NO DATE ASKED : 11/04/2020 BMI CARE GOAL FOLLOW-UP ABOVE NORMAL BMI FOLLOW-UPDIETARY MANAGEMENT EDUCATION, GUIDANCE, AND COUNSELING ALCOHOL SCREENING DID YOU HAVE A DRINK CONTAINING ALCOHOL IN THE PAST YEAR?YES HOW OFTEN DID YOU HAVE SIX OR MORE DRINKS ON ONE OCCASION IN THE PAST YEAR?LESS THAN MONTHLY (1 POINT) HOW MANY DRINKS DID YOU HAVE ON A TYPICAL DAY WHEN YOU WERE DRINKING IN THE PAST YEAR?1 OR 2 (0 POINTS) HOW OFTEN DID YOU HAVE A DRINK CONTAINING ALCOHOL IN THE PAST YEAR?MONTHLY OR LESS (1 POINT) POINTS2 INTERPRETATIONNEGATIVE RECREATIONAL DRUG USE DRUG USE?NO CAFFEINE CAFFEINE USE?YES HOW OFTEN AND HOW MUCH? 2 CUPS PER DAY SEXUAL HX HAD SEX IN THE LAST 12 MONTHS (VAGINAL, ORAL, OR ANAL)?NO HAVE YOU EVER HAD AN STD?NO HIV / HEP-C SCREENING HIV TEST OFFERED TO PATIENT:YES DATE OFFERED:03/02/2018 TEST ACCEPTED:NO HEP-C TEST OFFERED TO PATIENT:YES DATE OFFERED:03/02/2018 REASON:PATIENT DECLINED TEST ACCEPTED:NO REASON:PATIENT DECLINED BROCHURE PROVIDED TO PATIENTNO YAZIDISM [id number] NONE LANGUAGE LANGUAGES SPOKEN:NORWEGIAN EDUCATION LEVEL OF EDUCATION:COLLEGE LEARNING BARRIERS / SPECIAL NEEDS CHANGE FROM LAST VISIT?NO BARRIERS TO LEARNING?NO HEARING IMPAIRED?NO VISION IMPAIRED?NO COGNITIVELY IMPAIRED?NO READINESS TO LEARN?YES LEARNING PREFERENCES?NO LEARNING CAPABILITIES PRESENT?YES EMOTIONAL BARRIERS?NO SPECIAL DEVICES?YES :CANE RETAIL SOLAR ADVISOR NEEDED?NO DOMESTIC VIOLENCE DO YOU FEEL SAFE IN YOUR ENVIRONMENT?YES 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. DIET: REGULAR, UNFORTUNATELY EATING MORE PROCESSED FOOD THAN SHE SHOULD. EXERCISE: WALKS DAILY. MARITAL STATUS: SINGLE. TODAY'S VISITNOTES - PFS REFERRAL NEEDED?NO CLERGY REFERRAL NEEDED?NO PUBLIC HEALTH REFERRAL NEEDED?NO WAS THE PROVIDER NOTIFIED OF ANY PERTINENT INFO? N/A HAS THE PATIENT BEEN EDUCATED REGARDING HIS/HER PLAN OF CARE?YES HAS THE PATIENT BEEN EDUCATED REGARDING PAIN, THE RISK FOR PAIN, THE IMPORTANCE OF EFFECTIVE PAIN MANAGEMENT, AND THE PAIN ASSESSMENT PROCESS?YES ADVANCE DIRECTIVE ADVANCE DIRECTIVE DISCUSSED WITH PATIENT:YES HCP [facility] [phone] 05/16/18 0900 REVIEWED WITH PT. AD01/31/19 REVIEWED WITH PT. AD06/14/19 REVIEWED WITH PT. ADREVIEWED WITH PATIENT 11/14/2019 0933 JS. HOSPITALIZATION/MAJOR DIAGNOSTIC PROCEDURE SURGICAL ONLY REVIEW OF SYSTEMS CONSTITUTIONAL: ANY RECENT FEVER NO . CHILLS NO . WEIGHT CHANGE OF UNKNOWN REASONS NO . GASTROENTEROLOGY: NEW UNEXPLAINABLE CHANGES IN BOWEL CONTROL NO . CONSTIPATION NO . GENITOURINARY: ANY NEW CHANGE IN BLADDER CONTROL? NO . NEUROLOGY: NEW ONSET DIZZINESS OR NEUROLOGICAL CHANGES NOT MENTIONED NO . NEW NUMBNESS OR PAIN PATTERNS NOT MENTIONED AND PERTINENT TO TODAY'S VISIT NO . CARDIOLOGY: NEW CHEST PRESSURE NO . NEW CHEST PAIN NO . RESPIRATORY: UNEXPLAINABLE COUGH NO . NEW SHORTNESS OF BREATH NO . ASSESSMENTS SACROILIITIS, NOT ELSEWHERE CLASSIFIED - M46.1 (PRIMARY) TREATMENT SACROILIITIS, NOT ELSEWHERE CLASSIFIED REFILL NORCO TABLET, 7.5-325 MG, 1 TABLET NEEDED, ORALLY, 1 TO 2 TAB Q4-6HR PRN PAIN MDD6,CAT D CHRONIC PAIN 3MOS SUPPLY, 90 DAY(S), 540, REFILLS 0 NOTES: PATIENT WILL RETURN TO CLINIC IN 2 DAYS FOR A NURSE VISIT/URINE TOXICOLOGY/PILL COUNT/IDENTIFICATION. CONTINUE CURRENT CHRONIC PAIN MEDICATIONS. TOTAL TIME SPENT DURING TELEMED ZOOM VISIT WAS APPROXIMATELY 12 MINUTES. , ISTOP REGISTRY REVIEWED AND DEMONSTRATES COMPLLIANCE. RECENT URINE TOXICOLOGY REVIEWED. NO UNAUTHORIZED MEDICATIONS. NO ILLICIT SUBSTANCES AND PRESCRIBED MEDICATIONS WERE PRESENT. DISPOSITION & COMMUNICATION FOLLOW UP NURSE VISIT TUESDAY/URINE TOX/PILL EVAL (REASON: NURSE VISIT /MED MGMNT/UTOX/PILL COUNT/ID) ELECTRONICALLY SIGNED BY JEFF PALACIOS ON 11/06/2020 AT 11:37 AM EST DISCLAIMER : THIS IS A VISIT SUMMARY EXTRACTED FROM THE [employer] CHART. IT IS NOT A COPY OF THE [employer] PROGRESS NOTE. ANNMARIE
== END ==
LOC: M TMPAIN 11:30 → M PAIN 11:30
PROVIDERS: ATTEND Nurse Practitioner Family
DX: M46.1 Sacroiliitis, not elsewhere classified (principal); G80.1 Spastic diplegic cerebral palsy; I10 Essential (primary) hypertension; F32.9 Major depressive disorder, single episode, unspecified; F41.9 Anxiety disorder, unspecified; E66.9 Obesity, unspecified; M51.36 Other intervertebral disc degeneration, lumbar region; E78.00 Pure hypercholesterolemia, unspecified; K21.9 Gastro-esophageal reflux disease without esophagitis; J30.9 Allergic rhinitis, unspecified; Z79.891 Long term (current) use of opiate analgesic; Z79.899 Other long term (current) drug therapy; Z98.84 Bariatric surgery status

== ENCOUNTER → 2020-11-27 | Outpatient (CLI) | payer BC ==
--- NOTE | 2020-12-03 00:12 | ECWPNPC ---
PATIENT NAME: OCTAVIO HANLEY : 1980 GENDER: FEMALE VISIT DATE: 11/27/2020 DISCHARGE DATE: 11/27/20 1105 VISIT LOCKED DATE TIME: PHYSICIAN: LILLY FALCON RESOURCE: LILLY FALCON REASON FOR APPOINTMENT 1. UTOX/PILL COUNT ALLERGIES NO[ALLERGIES VERIFIED] ASSESSMENTS SACROILIITIS, NOT ELSEWHERE CLASSIFIED - M46.1 TREATMENT SACROILIITIS, NOT ELSEWHERE CLASSIFIED PATIENT MEDICATION INVENTORY NOTES: PT CALLED. STATES IS STILL TRYING TO OBTAIN TRANSPORTATION TO COME IN SOONER FOR PILL COUNTING APPOINTMENT. NOTIFIED Silvia AGUILAR. OTHERS NOTES: PT WAS IN TODAY FOR PILL COUNT AND URINE TOXICOLOGY AT APPROXIMATELY 1015. PT BROUGHT IN CARISOPRODOL 350 MG #77 WHICH WAS VERIFIED AND COUNTED WITH Destiny CURTIS RN. PT BROUGHT IN 3 BOTTLES OF HYDROCODONE/ACETAMINOPHEN 7.5/325 MG. STATES FORGOT 4TH BOTTLE OF HYDROCODONE/ACETAMINOPHEN BECAUSE IT WAS IN LOCKED BOX AT HOME. DISCUSSED WITH Silvia AGUILAR. PT INSTRUCTED REGARDING NEED TO RETURN TO [facility] FOR PILL COUNT OF HYDROCODONE/ACETAMINOPHEN 11/27/20 OR 11/28/20 IF UNABLE TO RETURN TODAY DUE TO TRANSPORTATION. DISCUSSED THAT PILL COUNT WOULD NEED TO BE COMPLETED PRIOR TO FURTHER PRESCRIPTIONS. PT STATED WOULD CALL TODAY REGARDING TIME SHE WOULD BE ABLE TO RETURN. Silvia TABARES RN 11/27/20 4011. DISPOSITION & COMMUNICATION ELECTRONICALLY SIGNED BY JEFF PALACIOS ON 12/02/2020 AT 09:15 AM EST DISCLAIMER : THIS IS A VISIT SUMMARY EXTRACTED FROM THE [employer] CHART. IT IS NOT A COPY OF THE [employer] PROGRESS NOTE. MTDD
== END ==
LOC: M PAIN 10:00
PROVIDERS: ATTEND Nurse Practitioner Family
DX: M46.1 Sacroiliitis, not elsewhere classified (principal); Z79.899 Other long term (current) drug therapy

== ENCOUNTER → 2020-12-05 | Outpatient (CLI) | payer BC ==
--- NOTE | 2020-12-07 23:01 | ECWPNPC ---
PATIENT NAME: OCTAVIO HANLEY : 1980 GENDER: FEMALE VISIT DATE: 12/05/2020 DISCHARGE DATE: 12/05/20 1058 VISIT LOCKED DATE TIME: PHYSICIAN: LILLY FALCON RESOURCE: LILLY FALCON REASON FOR APPOINTMENT 1. PILL COUNT/RUNNING FEW MINUTES BEHIND ALLERGIES NO[ALLERGIES VERIFIED] ASSESSMENTS CHRONIC PRESCRIPTION OPIATE USE - Z79.899 TREATMENT CHRONIC PRESCRIPTION OPIATE USE PATIENT MEDICATION INVENTORYPRESCRIPTON #[id number] OF RX ON TPHLFY61/21/21DRUG AND STRENGTHHYDROCODONE/ACETAMINOPHEN 7.5/325MGFORMULATIONTABLETSVERIFIED DRUG IDENITITYYESQUANTITY#1 24. #2 127. #3 135. #4 135.DELBERT SHAW 12/05/2020 10:45:53 AM > COUNT COMPLETED WITH SARA ROMERO BSN ANEESH MATOS 12/05/2020 10:55:18 AM > COUNTED WITH Ryan SHWA MA. NOTES: 12/05/20 1103 INSTANT PRINT OPERATOR AND Ryan SHAW MA COUNTED A TOTAL OF 421 HYDROCODONE/ACETAMINOPHEN TABLETS 7.5/325MG. PATIENT HAD 540 TABLETS DISPENSED BY PHARMACY ON [id number]. 29 DAYS HAVE ELAPSED, MEANING PATIENT COULD HAVE USED 174 TABLETS. COUNT WITHIN NORMAL RANGE. REPORT OF ABOVE GIVEN TO JEFF SIDDIQI. SARA ROMERO BSN. DISPOSITION & COMMUNICATION ELECTRONICALLY SIGNED BY JEFF PALACIOS ON 12/07/2020 AT 07:07 PM EST DISCLAIMER : THIS IS A VISIT SUMMARY EXTRACTED FROM THE [facility] CHART. IT IS NOT A COPY OF THE [facility] PROGRESS NOTE. MTDD
== END ==
LOC: M PAIN 10:00
PROVIDERS: ATTEND Nurse Practitioner Family
DX: Z79.891 Long term (current) use of opiate analgesic (principal)

== ENCOUNTER → 2021-01-23 | Outpatient (CLI) | payer BC ==
[2021-01-23 12:09] LABS: RED BLOOD COUNT 4.01 10^6/uL (4.00-5.40); WHITE BLOOD COUNT 3.6 10^3/uL (4.0-10.0)
--- NOTE | 2021-01-23 12:09 | REP ---
INDICATION: RUQ ABDOMINAL PAIN. COMPARISON: None. TECHNIQUE: Abdominal right upper quadrant ultrasound. FINDINGS: There are gallbladder calculi measuring 7-8 mm in diameter. There is tenderness to ultrasound transducer pressure. The gallbladder wall is mildly thickened measuring 5 mm. There is no pericholecystic fluid. There is no intrahepatic biliary duct dilatation. The common biliary duct is dilated measuring up to 8 mm. The hepatic parenchyma is hyperechoic but otherwise homogeneous and unremarkable. This is compatible with hepato steatosis. The visualized areas of the pancreas are unremarkable. Portions of the pancreas are obscured by bowel gas. The right kidney measures 9.7 x 5.45 x 5.2 cm and is normal size. There is no right renal calculus, hydronephrosis, solid mass or cystic mass. There is no free fluid in the abdominal right upper quadrant. The study is technically difficult because of patient body habitus. IMPRESSION: Cholelithiasis, mild gallbladder wall thickening, dilated common biliary duct. Hepato steatosis. No hepatic masses. Pancreas is partially obscured by bowel gas. No right upper quadrant free fluid. <Electronically signed by Pankaj Juarez > 01/23/21 [id number]
[2021-01-23 12:10] LABS: HEMATOCRIT 37.2 % (36.0-47.0); MEAN CORPUSCULAR HEMOGLOBIN 32.4 pg (27.0-33.0); MEAN CORPUSCULAR HGB CONC 34.9 g/dl (32.0-36.5); MEAN CORPUSCULAR VOLUME 92.8 fl (80.0-96.0); PLATELET COUNT, AUTOMATED 261 10^3/uL (150-450)
[2021-01-23 12:31] LABS: ALBUMIN 3.3 GM/DL (3.2-5.2); ALT/SGPT 109 U/L (12-78); BILIRUBIN,TOTAL 0.7 MG/DL (0.2-1.0); BLOOD UREA NITROGEN 4 MG/DL (7-18); CALCIUM LEVEL 8.6 MG/DL (8.5-10.1); CARBON DIOXIDE LEVEL 27 MEQ/L (21-32); CHLORIDE LEVEL 103 MEQ/L (98-107); CREATININE FOR GFR 0.73 MG/DL (0.55-1.30); GLOMERULAR FILTRATION RATE > 60.0 (>58); GLUCOSE, FASTING 73 MG/DL (70-100); LIPASE 179 U/L (73-393); POTASSIUM SERUM 3.1 MEQ/L (3.5-5.1); SODIUM LEVEL 140 MEQ/L (136-145); TOTAL PROTEIN 6.4 GM/DL (6.4-8.2)
== END ==
LOC: M RAD 11:07
PROVIDERS: ATTEND Student in an Organized Health Care Education/Training Program
DX: R10.9 Unspecified abdominal pain (principal)

== ENCOUNTER → 2021-01-23 | Outpatient (REF) | payer BC | LOC: M SFHCPLAZ 10:42 | PROVIDERS: ATTEND Family Medicine | DX: R10.11 Right upper quadrant pain (principal) ==

== ENCOUNTER → 2021-01-26 | Outpatient (CLI) | payer BC ==
[2021-01-26 12:11] LABS: ALBUMIN 3.3 GM/DL (3.2-5.2); ALT/SGPT 97 U/L (12-78); BILIRUBIN,DIRECT 0.8 MG/DL (0.0-0.2); BILIRUBIN,TOTAL 1.4 MG/DL (0.2-1.0); TOTAL PROTEIN 6.2 GM/DL (6.4-8.2)
[2021-01-26 12:29] LABS: HEPATITIS B SURFACE ANTIGEN NEGATIVE (NEGATIVE)
[2021-01-26 12:56] LABS: HEPATITIS C VIRUS ABY INDEX 0.1 INDEX (<0.8)
[2021-01-26 12:57] LABS: HEPATITIS B CORE ANTIBODY IGM NEGATIVE (NEGATIVE)
[2021-01-26 12:59] LABS: HEPATITIS A ANTIBODY IGM NEGATIVE (NEGATIVE)
== END ==
LOC: M LAB 10:23
PROVIDERS: ATTEND Surgery
DX: R10.9 Unspecified abdominal pain (principal)

== ENCOUNTER → 2021-02-03 | Outpatient (REF) | LOC: M LABSMTC 10:16 | PROVIDERS: ATTEND Pediatrics | DX: Z11.52 Encounter for screening for COVID-19 (principal) ==

== ENCOUNTER 2021-02-06 16:36 | Emergency (ER) | payer BC ==
[~2021-02-06] VITALS: Ht 177.8 cm; Wt 120.3 kg
[2021-02-06] MEDS ORDERED: BUPR15TA PO (16:47)
[2021-02-06] MEDS ORDERED: LEVOTAB10 PO (16:47)
[2021-02-06] MEDS ORDERED: LISI20TA33 PO (16:47)
[2021-02-06] MEDS ORDERED: NS 1,000 ML IV ONE (16:55)
[2021-02-06 18:12] LABS: BASO % 0.4 % (0.0-1.0); EOS # 0.2 10^3/uL (0.0-0.5); EOS % 3.4 % (0.0-3.0); HEMATOCRIT 39.8 % (36.0-47.0); LYMPH # 1.1 10^3/uL (1.5-5.0); MEAN CORPUSCULAR HEMOGLOBIN 33.1 pg (27.0-33.0); MEAN CORPUSCULAR HGB CONC 32.7 g/dl (32.0-36.5); MEAN CORPUSCULAR VOLUME 101.3 fl (80.0-96.0); MONO # 0.6 10^3/uL (0.0-0.8); MONO % 13.4 % (2.0-8.0); NEUTROPHILS # 2.8 10^3/uL (1.5-8.5); NEUTROPHILS % 58.7 % (36.0-66.0); PLATELET COUNT, AUTOMATED 223 10^3/uL (150-450); RED BLOOD COUNT 3.93 10^6/uL (4.00-5.40); WHITE BLOOD COUNT 4.7 10^3/uL (4.0-10.0)
[2021-02-06] MEDS ORDERED: GI COCKTAIL 50ML BTL(HYOSCYAMINE/MAALOX/LIDOCAINE VISCOUS)(1:3:1) PO ONE (18:25)
[2021-02-06 18:41] LABS: ALBUMIN 3.1 GM/DL (3.2-5.2); BILIRUBIN,DIRECT 0.2 MG/DL (0.0-0.2); BILIRUBIN,TOTAL 0.4 MG/DL (0.2-1.0); TOTAL PROTEIN 6.5 GM/DL (6.4-8.2)
--- NOTE | 2021-02-06 19:13 | REP ---
INDICATION: RUQ abd pain, postprandial COMPARISON: None. TECHNIQUE: Real time merritt scale ultrasound examination using curved array transducer. FINDINGS: Gallbladder demonstrates 2 gallstones without wall thickening or pericholecystic fluid. No biliary ductal dilatation is appreciated and the common bile duct measures 5.3 mm diameter. Liver is mildly echogenic suggesting fatty infiltration. Visualized portions of the pancreas are unremarkable. The right kidney is normal in reniform shape without hydronephrosis and measures 10.5 x 5.4 x 5.1 cm. No ascites in the visualized right upper quadrant. IMPRESSION: 1. Hepatosteatosis. 2. Cholelithiasis. No further sonographic evidence to suggest acute cholecystitis. Clinical correlation is required. <Electronically signed by Tayo Ignacio > 02/06/211909
[2021-02-06] MEDS ORDERED: SUCRALFATE 1 GM TAB PO ONE (20:30)
[2021-02-06] MEDS ORDERED: CARA1TAB6 PO (20:54)
[2021-02-06] MEDS ORDERED: POTASSIUM CHLORIDE 10 MEQ SR TABLET PO ONE (21:00)
[2021-02-06 21:21] VITALS: BP 159/94
== END 2021-02-06 21:35 | disposition home or self-care (01) ==
LOC: M ED 16:36
DX: K80.70 Calculus of gallbladder and bile duct without cholecystitis without obstruction (principal); I10 Essential (primary) hypertension; K21.9 Gastro-esophageal reflux disease without esophagitis; Z88.8 Allergy status to other drugs, medicaments and biological substances; Z79.899 Other long term (current) drug therapy

== ENCOUNTER → 2021-02-17 | Outpatient (CLI) | payer BC ==
[~2021-02-17] MED LIST changes: +BUPR15TA PO; +CARA1TAB6 PO; +LEVOTAB10 PO; +LISI20TA33 PO
--- NOTE | 2021-02-20 02:43 | ECWPNPC ---
PATIENT NAME: OCTAVIO HANLEY : 1980 GENDER: FEMALE VISIT DATE: 02/17/2021 DISCHARGE DATE: 02/17/21 1424 VISIT LOCKED DATE TIME: PHYSICIAN: LILLY FALCON RESOURCE: LILLY FALCON HISTORY OF PRESENT ILLNESS GENERAL: HERE FOR FOLLOW-UP AND MEDICATION MANAGEMENT FOR CHRONIC LOW BACK PAIN WITH HISTORY OF POSTLAMINECTOMY PAIN SYNDROME. HISTORY OF FRACTURING RIGHT ANKLE IN NOVEMBER. HISTORY OF CEREBRAL PALSY WITH RIGHT LEG WEAKNESS. IT HAS BEEN VERY DIFFICULT FOR HER TO MAINTAIN APPOINTMENTS PER CLINIC POLICY DUE TO THIS. SHE RECENTLY WENT BACK TO WORK. SHE CONTINUES TO BE VERY DEBILITATED WITH PAIN AND SWELLING IN THE RIGHT LOWER EXTREMITY. FINDS CURRENT CHRONIC PAIN MEDICATION SOMEWHAT HELPFUL AT REDUCING PAIN AND KEEPING HER FUNCTIONAL. DENIES ADVERSE SIDE EFFECTS WITH HER MEDICATIONS. BRINGS IN HER MEDICATION WHICH IS APPROPRIATE FOR WHAT WAS DISPENSED. RECENT URINE TOXICOLOGY IS WITHIN NORMAL LIMITS. -. FALL RISK SCREENING: SCREENING : NO FALLS REPORTED IN THE LAST YEAR. PAIN SCREENING: PATIENT HAS A COMPLAINT OF ACUTE OR CHRONIC PAIN :YES LOCATION OF PAIN:LOW BACK INTENSITY OF PAIN (SCALE OF 1 TO 10):4 WHAT DOES YOUR PAIN FEEL LIKE:SHARP DURATION:INTERMITTENT PAIN IS INCREASED BY:PROLONGED STANDING, OTHERS SITTING FOR A LONG PEROID OF TIME PAIN IS DECREASED BY:USE OF PAIN MEDICATIONS NURSING NOTE: -. PAIN CENTER INTAKE QUESTIONS: DO YOU HAVE A HISTORY OF MRSA? :NO DO YOU TAKE A BLOOD THINNERS? :NO DO YOU HAVE ANY BLEEDING DISORDERS? :NO ANY NEW NUMBNESS OR WEAKNESS IN YOUR LEGS OR ARMS? :NO ANY PACEMAKER,DEFIBRILLATOR, OR DORSAL COLUMN STIMULATOR? :NO DO YOU HAVE ANY RASHES OR OPEN SORES? :NO ARE YOU ALLERGIC TO IV DYE? :NO ARE YOU DIABETIC? :NO ANY NEW PROBLEMS WITH YOUR MEDICATIONS? :NO HAVE YOU RECEIVED A VACCINE IN THE PAST 30 DAYS? :NO DO YOU PLAN TO RECEIVE A VACCINE IN THE NEXT 21 DAYS? :NO DO YOU NEED ANY PRESCRIPTION? :NO DO YOU TAKE ANY IMMUNOSUPPRESSIVE MEDICATIONS? :NO ANY HISTORY OF SEIZURES? :NO ANY HISTORY OF CARDIAC ISSUES OR EVENTS? :NO DO YOU HAVE SLEEP APNEA? :NO ANY RECENT HEAD INJURY? :NO DO YOU HAVE ANY NEW INFECTIONS? :NO IS THERE A CHANCE YOU COULD BE ? :NO ARE YOU BREAST FEEDING? :NO WHEN DID YOU LAST DRINK? : - DO YOU HAVE ANY OTHER QUESTIONS OR CONCERNS? : - CURRENT MEDICATIONS TAKING VITAMIN C 500 MG CAPSULE ORALLY ONCE A DAY TAKING MULTIVITAMINS 1 TABLET DIRECTED ORALLY DAILY TAKING VOLTAREN 1 % GEL DIRECTED TRANSDERMAL DAILY TAKING IBUPROFEN 400 MGS 2 TABS ORAL EVERY 6 HOURS NEEDED TAKING VESICARE 5 MG TABLET 1 TABLET ORALLY ONCE A DAY TAKING BUSPAR 30 MG TABLET 1 TAB ORALLY TWICE A DAY TAKING VITAMIN D 50 MCG (1999 UT) CAPSULE 1 TABLET ORALLY ONCE A DAY TAKING VENLAFAXINE HCL 75 MG TABLET TAKE 2 TABLETS IN THE AM, AND 1 TABLET IN THE PM ORALLY DAILY TAKING PRILOSEC 40 MG CAPSULE DELAYED RELEASE 1 CAPSULE ORALLY ONCE A DAY TAKING BACLOFEN 20 MG TABLET 1 TABLET WITH FOOD OR MILK ORALLY THREE TIMES A DAY TAKING SOMA 350 MG TABLET 1 ORALLY BID PRN MDD2 3MOS SUPPLY CATD CHRONIC PAIN TAKING NORCO 7.5-325 MG TABLET 1 TABLET NEEDED ORALLY 1 TO 2 TAB Q4-6HR PRN PAIN MDD6,CAT D CHRONIC PAIN 3MOS SUPPLY TAKING DEPO-PROVERA 150 MG/ML SUSPENSION 1 ML INTRAMUSCULAR ONCE DAILY EVERY 3 MONTHS TAKING BUPROPION HCL 75 MG TABLET 2 TABLETS ORALLY TWICE A DAY TAKING KLONOPIN 0.5 MG TABLET 1 TABLET ORALLY TWICE DAILY NEEDED FOR ANXIETY (MDD:2) CODE A TAKING ZOFRAN 4 MG TABLET 1 TABLET ORALLY ONCE A DAY TAKING LISINOPRIL 20 MG TABLET 1 TABLET ORALLY ONCE A DAY TAKING ZOFRAN 4 MG TABLET 1 TABLET ORALLY BID TAKING SULFACET 1MG 1 TAB FOUR TIMES A DAY BEFORE BEDTIME NOT-TAKING ZESTORETIC 20-12.5 MG TABLET 1 TABLET ORALLY ONCE A DAY UNKNOWN LEVOCETIRIZINE DIHYDROCHLORIDE 5 MG TABLET 1 TABLET IN THE EVENING ORALLY ONCE A DAY, NOTES: [id number] MEDICATION LIST REVIEWED AND RECONCILED WITH THE PATIENT PAST MEDICAL HISTORY CEREBAL PALSY WITH RIGHT SIDED SPASTICITY HTN, GOAL BP 130/80 PER AHA/ACC DEPRESSION/ANXIETY OBESITY, S/P GASTRIC SLEEVE LUMBAR DDD, S/P MULTIPLE DISCECTOMIES HYPERCHOLESTEROLEMIA GERD ALLERGIC RHINITIS SLEEP STUDY 10/29/11 NEG FOR SLEEP APNEA LEFT SHOULDER AND LEFT THORACIC PAIN RIGHT LEG PAIN ALLERGIES CELEBREX: FACIAL SWELLING - ALLERGY NAPROXEN: FACIAL SWELLING - ALLERGY SOCIAL HISTORY GENERAL: TOBACCO USE ARE YOU A:NEVER SMOKER LATEX QUESTIONNAIRE LATEX ALLERGY : HAVE YOU EVER DEVELOPED ANY TYPE OF REACTION AFTER HANDLING LATEX PRODUCTS SUCH RUBBER GLOVES, CONDOMS, DIAPHRAGMS, BALLOONS, SOCKS, OR UNDERWEAR?NO LATEX ALLERGY : HAVE YOU EVER DEVELOPED ANY TYPE OF REACTION DURING OR AFTER DENTAL APPOINTMENT, VAGINAL/RECTAL EXAMINATION, SURGICAL PROCEDURE, OR ANY OTHER EXPOSURE?NO LATEX RISK : HAVE YOU EVER HAD ANY DIFFICULTY BREATHING OR HIVES AFTER EATING OR HANDLING ANY FRUITS, OR VEGETABLES; SUCH KIWI, BANANAS, STONE FRUITS, OR CHESTNUTSNO LATEX RISK : DO YOU HAVE A PREVIOUS PERSONAL HISTORY OF MORE THAN NINE SURGERIES, SPINA BIFIDA, OR REPEATED CATHERIZATIONS? YES - PLEASE INDICATE : > 9 SURGERIES LATEX RISK : ARE YOU FREQUENTLY EXPOSED TO LATEX PRODUCTS IN YOUR OCCUPATION?NO DATE ASKED : 02/17/2021 ALCOHOL USE: YES, RARELY MAYBE A BIRTHDAY PAPRTY. BMI CARE GOAL FOLLOW-UP ABOVE NORMAL BMI FOLLOW-UPDIETARY MANAGEMENT EDUCATION, GUIDANCE, AND COUNSELING ALCOHOL SCREENING DID YOU HAVE A DRINK CONTAINING ALCOHOL IN THE PAST YEAR?YES HOW OFTEN DID YOU HAVE SIX OR MORE DRINKS ON ONE OCCASION IN THE PAST YEAR?LESS THAN MONTHLY (1 POINT) HOW MANY DRINKS DID YOU HAVE ON A TYPICAL DAY WHEN YOU WERE DRINKING IN THE PAST YEAR?1 OR 2 (0 POINTS) HOW OFTEN DID YOU HAVE A DRINK CONTAINING ALCOHOL IN THE PAST YEAR?MONTHLY OR LESS (1 POINT) POINTS2 INTERPRETATIONNEGATIVE RECREATIONAL DRUG USE DRUG USE?NO CAFFEINE CAFFEINE USE?YES HOW OFTEN AND HOW MUCH? 2 CUPS PER DAY SEXUAL HX HAD SEX IN THE LAST 12 MONTHS (VAGINAL, ORAL, OR ANAL)?NO HAVE YOU EVER HAD AN STD?NO HIV / HEP-C SCREENING HIV TEST OFFERED TO PATIENT:YES DATE OFFERED:03/02/2018 TEST ACCEPTED:NO HEP-C TEST OFFERED TO PATIENT:YES DATE OFFERED:03/02/2018 REASON:PATIENT DECLINED TEST ACCEPTED:NO REASON:PATIENT DECLINED BROCHURE PROVIDED TO PATIENTNO JEW [id number] NONE LANGUAGE LANGUAGES SPOKEN:SIERRA LEONEAN EDUCATION LEVEL OF EDUCATION:COLLEGE LEARNING BARRIERS / SPECIAL NEEDS CHANGE FROM LAST VISIT?NO BARRIERS TO LEARNING?NO HEARING IMPAIRED?NO VISION IMPAIRED?NO COGNITIVELY IMPAIRED?NO READINESS TO LEARN?YES LEARNING PREFERENCES?NO LEARNING CAPABILITIES PRESENT?YES EMOTIONAL BARRIERS?NO SPECIAL DEVICES?NO CHANNEL MAN NEEDED?NO DOMESTIC VIOLENCE DO YOU FEEL SAFE IN YOUR ENVIRONMENT?YES 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 DIET: REGULAR, UNFORTUNATELY EATING MORE PROCESSED FOOD THAN SHE SHOULD. EXERCISE: WALKS DAILY. MARITAL STATUS: SINGLE. TODAY'S VISITNOTES - PFS REFERRAL NEEDED?NO CLERGY REFERRAL NEEDED?NO PUBLIC HEALTH REFERRAL NEEDED?NO WAS THE PROVIDER NOTIFIED OF ANY PERTINENT INFO? N/A HAS THE PATIENT BEEN EDUCATED REGARDING HIS/HER PLAN OF CARE?YES HAS THE PATIENT BEEN EDUCATED REGARDING PAIN, THE RISK FOR PAIN, THE IMPORTANCE OF EFFECTIVE PAIN MANAGEMENT, AND THE PAIN ASSESSMENT PROCESS?YES ADVANCE DIRECTIVE ADVANCE DIRECTIVE DISCUSSED WITH PATIENT:YES HCP [facility] [phone] 05/16/18 0900 REVIEWED WITH PT. AD01/31/19 REVIEWED WITH PT. AD06/14/19 REVIEWED WITH PT. ANAID WITH PATIENT 11/14/2019 0933 JS. REVIEW OF SYSTEMS CONSTITUTIONAL: ANY RECENT FEVER NO . CHILLS NO . WEIGHT CHANGE OF UNKNOWN REASONS NO . GASTROENTEROLOGY: NEW UNEXPLAINABLE CHANGES IN BOWEL CONTROL NO . CONSTIPATION NO . GENITOURINARY: ANY NEW CHANGE IN BLADDER CONTROL? NO . NEUROLOGY: NEW ONSET DIZZINESS OR NEUROLOGICAL CHANGES NOT MENTIONED NO . NEW NUMBNESS OR PAIN PATTERNS NOT MENTIONED AND PERTINENT TO TODAY'S VISIT NO . CARDIOLOGY: NEW CHEST PRESSURE NO . PATIENT DENIES NO . RESPIRATORY: UNEXPLAINABLE COUGH NO . NEW SHORTNESS OF BREATH NO . VITAL SIGNS WT 278.0 LBS, HT 70 IN, BMI 39.88 INDEX, BP 157/97 MM HG, HR 86 /MIN, RR 18 /MIN, TEMP 97.4 F, OXYGEN SAT % 97%, SAFE IN ENV? (Y/N) YES, NA INITIALS AW 1333T.VALERIA HENSON. EXAMINATION GENERAL EXAMINATION: GENERALWALKS WITH A SLOW ANTALGIC GAIT WITH LIMP OVER RIGHT LEG. LUNGS:CLEAR TO AUSCULTATION BILATERALLY, NO WHEEZES, RHONCHI, RALES. HEART:NO MURMURS, REGULAR RATE AND RHYTHM. MUSCULOSKELETAL:WEAKNESS NOTED OVER RIGHT LEG.. ASSESSMENTS CHRONIC PRESCRIPTION OPIATE USE - Z79.899 (PRIMARY) SACROILIITIS, NOT ELSEWHERE CLASSIFIED - M46.1 TREATMENT CHRONIC PRESCRIPTION OPIATE USE CONTINUE IBUPROFEN, 400 MGS 2 TABS, ORAL, EVERY 6 HOURS NEEDED CONTINUE BACLOFEN TABLET, 20 MG, 1 TABLET WITH FOOD OR MILK, ORALLY, THREE TIMES A DAY CONTINUE SOMA TABLET, 350 MG, 1, ORALLY, BID PRN MDD2 3MOS SUPPLY CATD CHRONIC PAIN CONTINUE NORCO TABLET, 7.5-325 MG, 1 TABLET NEEDED, ORALLY, 1 TO 2 TAB Q4-6HR PRN PAIN MDD6,CAT D CHRONIC PAIN 3MOS SUPPLY NOTES: ISTOP REGISTRY REVIEWED AND DEMONSTRATES COMPLLIANCE. BRINGS IN MEDICATIONS WHICH IS APPROPRIATE FOR WHAT WAS DISPENSED. RECENT URINE TOXICOLOGY REVIEWED. NO UNAUTHORIZED MEDICATIONS. NO ILLICIT SUBSTANCES AND PRESCRIBED MEDICATIONS WERE PRESENT. PROCEDURE CODES [id number] ESTABILISHED PATIENT NEW [facility] CHARGE DISPOSITION & COMMUNICATION FOLLOW UP 3 MONTHS (REASON: MED MGMNT) ELECTRONICALLY SIGNED BY JEFF PALACIOS ON 02/19/2021 AT 01:40 PM EDT DISCLAIMER : THIS IS A VISIT SUMMARY EXTRACTED FROM THE [employer] CHART. IT IS NOT A COPY OF THE [employer] PROGRESS NOTE. ANNMARIE
== END ==
LOC: M PAIN 13:30
PROVIDERS: ATTEND Nurse Practitioner Family
DX: M46.1 Sacroiliitis, not elsewhere classified (principal); G89.29 Other chronic pain; K21.9 Gastro-esophageal reflux disease without esophagitis; Z86.59 Personal history of other mental and behavioral disorders; Z98.84 Bariatric surgery status; Z88.6 Allergy status to analgesic agent; Z88.8 Allergy status to other drugs, medicaments and biological substances; Z79.899 Other long term (current) drug therapy

== ENCOUNTER 2021-03-09 04:26 | Emergency (ER) | payer BC ==
[~2021-03-09] VITALS: Ht 177.8 cm; Wt 121.8 kg
[2021-03-09 04:55] LABS: BASO % 0.4 % (0.0-1.0); EOS % 0.8 % (0.0-3.0); HEMATOCRIT 36.1 % (36.0-47.0); HEMOGLOBIN 12.6 g/dl (12.0-15.5); LYMPH # 1.6 10^3/uL (1.5-5.0); LYMPH % 30.9 % (24.0-44.0); MEAN CORPUSCULAR HEMOGLOBIN 32.9 pg (27.0-33.0); MEAN CORPUSCULAR HGB CONC 34.9 g/dl (32.0-36.5); MEAN CORPUSCULAR VOLUME 94.3 fl (80.0-96.0); MONO # 0.6 10^3/uL (0.0-0.8); MONO % 11.7 % (2.0-8.0); NEUTROPHILS # 2.8 10^3/uL (1.5-8.5); NEUTROPHILS % 55.8 % (36.0-66.0); PLATELET COUNT, AUTOMATED 296 10^3/uL (150-450); RED BLOOD COUNT 3.83 10^6/uL (4.00-5.40); WHITE BLOOD COUNT 5.1 10^3/uL (4.0-10.0)
[2021-03-09 05:33] LABS: BLOOD UREA NITROGEN 4 MG/DL (7-18); CALCIUM LEVEL 7.6 MG/DL (8.5-10.1); CARBON DIOXIDE LEVEL 24 MEQ/L (21-32); CHLORIDE LEVEL 110 MEQ/L (98-107); CK-MB VALUE MASS < 1.0 NG/ML (<3.6); CPK CREATINE PHOSPHOKINASE 57 U/L (26-192); CREATININE FOR GFR 0.63 MG/DL (0.55-1.30); GLOMERULAR FILTRATION RATE > 60.0 (>58); GLUCOSE, FASTING 105 MG/DL (70-100); MB/CK RELATIVE INDEX 1.75 (< OR =4); POTASSIUM SERUM 2.9 MEQ/L (3.5-5.1); SODIUM LEVEL 143 MEQ/L (136-145); TROPONIN I < 0.02 NG/ML (< 0.10)
--- NOTE | 2021-03-09 05:37 | ECGEPIP ---
[facility] - ED Test Date: 2021-03-09 Pat Name: OCTAVIO HANLEY Department: Room: - Gender: Female Patented [employer]er: rian : 1980 Requested By: MANNY MILLAN Order Number: [id number] Reading MD: Ferny Tan Measurements Intervals [place] Rate: 101 P: 23 MI: 154 QRS: -4 QRSD: 84 T: -1 QT: 344 QTc: 446 Interpretive Statements Sinus tachycardia Inferior infarct , age undetermined Electronically Signed on 03-09-2021 5:37:20 EDT by Ferny Tan
[2021-03-09 05:42] LABS: MAGNESIUM LEVEL 1.5 MG/DL (1.8-2.4)
--- NOTE | 2021-03-09 06:10 | REPVR ---
PROCEDURE INFORMATION: Exam: XR Chest Exam date and time: 03/09/2021 5:15 AM Age: 40 years old Clinical indication: Pain; Other: Not specified; Additional info: Chest pain TECHNIQUE: Imaging protocol: XR of the chest. Views: 1 view. COMPARISON: 1. CR CHEST 2 VIEW 2014-03-14 12:28 2. TN CHEST 2 VIEW 2020-09-26 09:44 FINDINGS: Lungs: Unremarkable. No consolidation. Pleural spaces: Unremarkable. No pleural effusion. No pneumothorax. Heart/Mediastinum: Unremarkable. No cardiomegaly. Bones/joints: Unremarkable. IMPRESSION: No acute findings. Electronically signed by: Rosalio Boss On 03/09/2021 06:10:28 AM
[2021-03-09] MEDS ORDERED: MAGNESIUM SULFATE IN WATER 2 GM in IV 1 EA IV STA ×2 (07:23)
[2021-03-09] MEDS ORDERED: POTASSIUM CHL PWD 20 MEQ PACKET PO ONE (07:25)
[2021-03-09] MEDS ORDERED: KCL 10MEQ/100ML SWI (KRUN) 10 MEQ in IV 1 EA IV ONE (07:25)
[2021-03-09] MEDS ORDERED: MAG SULF 1GM/100ML (MAG RUN) 1 GM in IV 1 EA IV ONE (07:35)
[2021-03-09 07:47] LABS: HEMATOCRIT 37.1 % (36.0-47.0); HEMOGLOBIN 12.7 g/dl (12.0-15.5); MEAN CORPUSCULAR HEMOGLOBIN 32.2 pg (27.0-33.0); MEAN CORPUSCULAR HGB CONC 34.2 g/dl (32.0-36.5); MEAN CORPUSCULAR VOLUME 93.9 fl (80.0-96.0); PLATELET COUNT, AUTOMATED 285 10^3/uL (150-450); RED BLOOD COUNT 3.95 10^6/uL (4.00-5.40); WHITE BLOOD COUNT 4.4 10^3/uL (4.0-10.0)
[2021-03-09] MEDS ORDERED: FAMOTIDINE INJ 20MG/2ML VIAL (S0028 PER 1) IVP ONE (07:55)
[2021-03-09] MEDS ORDERED: chlordiazePOXIDE 25 MG CAP PO ONE (07:55)
[2021-03-09] MEDS ORDERED: ONDANSETRON 4MG/2ML VIAL IV ONE ×2 (08:00→08:05)
[2021-03-09 08:14] LABS: LIPASE 100 U/L (73-393)
[2021-03-09] MEDS ORDERED: HYDR-3716 (08:19)
[2021-03-09 09:10] LABS: ALBUMIN 3.1 GM/DL (3.2-5.2); BILIRUBIN,DIRECT 0.2 MG/DL (0.0-0.2); BILIRUBIN,TOTAL 0.3 MG/DL (0.2-1.0); ETHYL ALCOHOL (ETHANOL) 0.283 % (0.000-0.010)
[2021-03-09] MEDS ORDERED: K-TA1TAB PO (10:19)
[2021-03-09] MEDS ORDERED: SLOWTAB2 PO (10:19)
[2021-03-09 10:42] VITALS: BP 160/80
== END 2021-03-09 10:44 | disposition home or self-care (01) ==
LOC: M ED 04:26
DX: K29.20 Alcoholic gastritis without bleeding (principal); F10.220 Alcohol dependence with intoxication, uncomplicated; E83.42 Hypomagnesemia; E87.6 Hypokalemia; G80.8 Other cerebral palsy; E78.5 Hyperlipidemia, unspecified; F32.9 Major depressive disorder, single episode, unspecified; Z79.899 Other long term (current) drug therapy; Z88.8 Allergy status to other drugs, medicaments and biological substances
CPT/HCPCS: 71045; 80048; 80076; 82077; 82550; 82553; 83690; 83735; 84484; 85025; 85027; 93005; 93041; 94760; 96365; 96367; 96375; 99285; J2405; J3475

== ENCOUNTER → 2021-03-11 | Outpatient (CLI) | payer BC ==
[~2021-03-11] MED LIST changes: +HYDR-3716; +K-TA1TAB PO; +SLOWTAB2 PO
[2021-03-11 13:40] LABS: ALBUMIN 3.4 GM/DL (3.2-5.2); ALT/SGPT 50 U/L (12-78); BILIRUBIN,TOTAL 0.7 MG/DL (0.2-1.0); BLOOD UREA NITROGEN 6 MG/DL (7-18); CALCIUM LEVEL 8.5 MG/DL (8.5-10.1); CARBON DIOXIDE LEVEL 26 MEQ/L (21-32); CHLORIDE LEVEL 109 MEQ/L (98-107); GLOMERULAR FILTRATION RATE > 60.0 (>58); GLUCOSE, FASTING 78 MG/DL (70-100); POTASSIUM SERUM 3.4 MEQ/L (3.5-5.1); SODIUM LEVEL 142 MEQ/L (136-145); TOTAL PROTEIN 6.3 GM/DL (6.4-8.2)
== END ==
LOC: M WUC 09:14
PROVIDERS: ATTEND Student in an Organized Health Care Education/Training Program
DX: E87.6 Hypokalemia (principal)

== ENCOUNTER → 2021-03-12 | Outpatient (CLI) | payer BC ==
[2021-03-12 16:39] LABS: BASO % 0.4 % (0.0-1.0); EOS # 0.3 10^3/uL (0.0-0.5); EOS % 6.5 % (0.0-3.0); HEMATOCRIT 37.4 % (36.0-47.0); LYMPH # 1.5 10^3/uL (1.5-5.0); LYMPH % 30.8 % (24.0-44.0); MEAN CORPUSCULAR HGB CONC 32.1 g/dl (32.0-36.5); MEAN CORPUSCULAR VOLUME 99.7 fl (80.0-96.0); MONO # 0.4 10^3/uL (0.0-0.8); MONO % 8.9 % (2.0-8.0); NEUTROPHILS # 2.6 10^3/uL (1.5-8.5); NEUTROPHILS % 53.2 % (36.0-66.0); PLATELET COUNT, AUTOMATED 295 10^3/uL (150-450); RED BLOOD COUNT 3.75 10^6/uL (4.00-5.40)
[2021-03-12 16:44] LABS: ALBUMIN 3.3 GM/DL (3.2-5.2); BILIRUBIN,DIRECT 0.1 MG/DL (0.0-0.2); BILIRUBIN,TOTAL 0.3 MG/DL (0.2-1.0); TOTAL PROTEIN 6.2 GM/DL (6.4-8.2)
== END ==
LOC: M WUC 13:52
PROVIDERS: ATTEND Surgery
DX: R10.11 Right upper quadrant pain (principal); K80.20 Calculus of gallbladder without cholecystitis without obstruction

== ENCOUNTER → 2021-03-13 | Outpatient (CLI) | payer BC | LOC: M OUTALCOH 07:35 | PROVIDERS: ATTEND Psychiatry & Neurology Psychiatry | DX: F10.20 Alcohol dependence, uncomplicated (principal) ==

== ENCOUNTER → 2021-05-21 | Outpatient (CLI) | payer BC ==
--- NOTE | 2021-05-22 04:27 | ECWPNPC ---
PATIENT NAME: OCTAVIO HANLEY : 1980 GENDER: FEMALE VISIT DATE: 05/21/2021 DISCHARGE DATE: 05/21/21 0000 VISIT LOCKED DATE TIME: PHYSICIAN: LILLY FALCON RESOURCE: LILLY FALCON REASON FOR APPOINTMENT 1. MED MGMNT HISTORY OF PRESENT ILLNESS GENERAL: HERE FOR FOLLOW-UP AND MEDICATION MANAGEMENT FOR CHRONIC LOW BACK PAIN WITH HISTORY OF POSTLAMINECTOMY PAIN SYNDROME. HISTORY OF FRACTURING RIGHT ANKLE IN NOVEMBER. HISTORY OF CEREBRAL PALSY WITH RIGHT LEG WEAKNESS. FINDS CURRENT CHRONIC PAIN MEDICATION SOMEWHAT HELPFUL AT REDUCING PAIN AND KEEPING HER FUNCTIONAL. DENIES ADVERSE SIDE EFFECTS WITH HER MEDICATIONS. BRINGS IN HER MEDICATION WHICH IS APPROPRIATE FOR WHAT WAS DISPENSED. RECENT URINE TOXICOLOGY IS WITHIN NORMAL LIMITS. - -. FALL RISK SCREENING: SCREENING : NO FALLS REPORTED IN THE LAST YEAR. PAIN SCREENING: PATIENT HAS A COMPLAINT OF ACUTE OR CHRONIC PAIN :YES INTENSITY OF PAIN (SCALE OF 1 TO 10):3 WHAT DOES YOUR PAIN FEEL LIKE:INTERMITTENT DURATION:ONLY WITH SPECIFIC ACTIVITIES, INTERMITTENT PAIN IS INCREASED BY:ACTIVITIES PAIN IS DECREASED BY:USE OF PAIN MEDICATIONS NURSING NOTE: -. PAIN CENTER INTAKE QUESTIONS: DO YOU HAVE A HISTORY OF MRSA? :NO DO YOU TAKE A BLOOD THINNERS? :NO DO YOU HAVE ANY BLEEDING DISORDERS? :NO ANY NEW NUMBNESS OR WEAKNESS IN YOUR LEGS OR ARMS? :NO ANY PACEMAKER,DEFIBRILLATOR, OR DORSAL COLUMN STIMULATOR? :NO DO YOU HAVE ANY RASHES OR OPEN SORES? :NO ARE YOU ALLERGIC TO IV DYE? :NO ARE YOU DIABETIC? :NO ANY NEW PROBLEMS WITH YOUR MEDICATIONS? :NO HAVE YOU RECEIVED A VACCINE IN THE PAST 30 DAYS? :NO DO YOU PLAN TO RECEIVE A VACCINE IN THE NEXT 21 DAYS? :NO DO YOU NEED ANY PRESCRIPTION? :YES BACLOFEN 20 MG, NORCO 7.5-325 MG TABLET DO YOU TAKE ANY IMMUNOSUPPRESSIVE MEDICATIONS? :NO ANY HISTORY OF SEIZURES? :NO ANY HISTORY OF CARDIAC ISSUES OR EVENTS? :NO DO YOU HAVE SLEEP APNEA? :NO ANY RECENT HEAD INJURY? :NO DO YOU HAVE ANY NEW INFECTIONS? :NO IS THERE A CHANCE YOU COULD BE ? :NO ARE YOU BREAST FEEDING? :NO WHEN DID YOU LAST DRINK? : - DO YOU HAVE ANY OTHER QUESTIONS OR CONCERNS? : - CURRENT MEDICATIONS TAKING VITAMIN C 500 MG CAPSULE ORALLY ONCE A DAY TAKING MULTIVITAMINS 1 TABLET DIRECTED ORALLY DAILY TAKING VOLTAREN 1 % GEL DIRECTED TRANSDERMAL DAILY TAKING VITAMIN D 50 MCG (1999 UT) CAPSULE 1 TABLET ORALLY ONCE A DAY TAKING VENLAFAXINE HCL 75 MG TABLET TAKE 2 TABLETS IN THE AM, AND 1 TABLET IN THE PM ORALLY DAILY TAKING PRILOSEC 40 MG CAPSULE DELAYED RELEASE 1 CAPSULE ORALLY ONCE A DAY TAKING DEPO-PROVERA 150 MG/ML SUSPENSION 1 ML INTRAMUSCULAR ONCE DAILY EVERY 3 MONTHS TAKING BUPROPION HCL 75 MG TABLET 2 TABLETS ORALLY TWICE A DAY TAKING LISINOPRIL 20 MG TABLET 1 TABLET ORALLY ONCE A DAY TAKING ZOFRAN 4 MG TABLET 1 TABLET ORALLY BID TAKING SULFACET 1MG 1 TAB FOUR TIMES A DAY BEFORE BEDTIME TAKING IBUPROFEN 400 MGS 2 TABS ORAL EVERY 6 HOURS NEEDED TAKING BACLOFEN 20 MG TABLET 1 TABLET WITH FOOD OR MILK ORALLY THREE TIMES A DAY TAKING NORCO 7.5-325 MG TABLET 1 TABLET NEEDED ORALLY 1 TO 2 TAB Q4-6HR PRN PAIN MDD6,CAT D CHRONIC PAIN 3MOS SUPPLY TAKING POTASSIUM CHLORIDE ER 20 MEQ TABLET EXTENDED RELEASE TAKE 1 TABLET BY MOUTH EVERY DAY WITH FOOD TAKING KLONOPIN 0.5 MG TABLET 1 TABLET ORALLY TWICE DAILY NEEDED FOR ANXIETY (MDD:2) CODE A TAKING BUSPAR 30 MG TABLET 1 TAB ORALLY TWICE A DAY TAKING VESICARE 5 MG TABLET 1 TABLET ORALLY ONCE A DAY TAKING LEVOCETIRIZINE DIHYDROCHLORIDE 5 MG TABLET 1 TABLET IN THE EVENING ORALLY ONCE A DAY NOT-TAKING CHLORDIAZEPOXIDE HCL 25 MG CAPSULE 1 CAPSULE ORALLY QID FOR 7 DAYS, TID FOR 7 DAYS, BID FOR 7 DAYS AND QHS FOR 7 DAYS, NOTES: THIS IS TO FILL THE REMINING PILLS NEEDED FOR A TAPER NOT-TAKING SLOW-MAG 71.5-119 MG TABLET DELAYED RELEASE 2 TABLETS ORALLY ONCE A DAY NOT-TAKING SOMA 350 MG TABLET 1 ORALLY BID PRN MDD2 3MOS SUPPLY CATD CHRONIC PAIN NOT-TAKING ZOFRAN 4 MG TABLET 1 TABLET ORALLY ONCE A DAY NOT-TAKING HYDROCODONE-ACETAMINOPHEN 7.5-325 MG TABLET 1 TO 2 TAB ORALLY Q4-6 HR MDD6 3MOS SUPPLY CAT D CHRONIC PAIN MEDICATION LIST REVIEWED AND RECONCILED WITH THE PATIENT PAST MEDICAL HISTORY CEREBAL PALSY WITH RIGHT SIDED SPASTICITY HTN, GOAL BP 130/80 PER AHA/ACC DEPRESSION/ANXIETY ALCOHOL ABUSE, IN EARLY REMISSION OBESITY, S/P GASTRIC SLEEVE LUMBAR DDD, S/P MULTIPLE DISCECTOMIES HYPERCHOLESTEROLEMIA GERD ALLERGIC RHINITIS SLEEP STUDY 10/29/11 NEG FOR SLEEP APNEA LEFT SHOULDER AND LEFT THORACIC PAIN RIGHT LEG PAIN COVID SHOT 1ST: 10/09/2021 2ND: 10/30/2020 PFIZER ALLERGIES CELEBREX: FACIAL SWELLING - ALLERGY NAPROXEN: FACIAL SWELLING - ALLERGY SOCIAL HISTORY GENERAL: TOBACCO USE ARE YOU A:NEVER SMOKER LATEX QUESTIONNAIRE LATEX ALLERGY : HAVE YOU EVER DEVELOPED ANY TYPE OF REACTION AFTER HANDLING LATEX PRODUCTS SUCH RUBBER GLOVES, CONDOMS, DIAPHRAGMS, BALLOONS, SOCKS, OR UNDERWEAR?NO LATEX ALLERGY : HAVE YOU EVER DEVELOPED ANY TYPE OF REACTION DURING OR AFTER DENTAL APPOINTMENT, VAGINAL/RECTAL EXAMINATION, SURGICAL PROCEDURE, OR ANY OTHER EXPOSURE?NO LATEX RISK : HAVE YOU EVER HAD ANY DIFFICULTY BREATHING OR HIVES AFTER EATING OR HANDLING ANY FRUITS, OR VEGETABLES; SUCH KIWI, BANANAS, STONE FRUITS, OR CHESTNUTSNO LATEX RISK : DO YOU HAVE A PREVIOUS PERSONAL HISTORY OF MORE THAN NINE SURGERIES, SPINA BIFIDA, OR REPEATED CATHERIZATIONS? YES - PLEASE INDICATE : > 9 SURGERIES LATEX RISK : ARE YOU FREQUENTLY EXPOSED TO LATEX PRODUCTS IN YOUR OCCUPATION?NO DATE ASKED : 05/21/2021 ALCOHOL USE: YES, RARELY MAYBE A BIRTHDAY PAPRTY. BMI CARE GOAL FOLLOW-UP ABOVE NORMAL BMI FOLLOW-UPDIETARY MANAGEMENT EDUCATION, GUIDANCE, AND COUNSELING ALCOHOL SCREENING DID YOU HAVE A DRINK CONTAINING ALCOHOL IN THE PAST YEAR?YES HOW OFTEN DID YOU HAVE A DRINK CONTAINING ALCOHOL IN THE PAST YEAR?MONTHLY OR LESS (1 POINT) HOW MANY DRINKS DID YOU HAVE ON A TYPICAL DAY WHEN YOU WERE DRINKING IN THE PAST YEAR?1 OR 2 (0 POINTS) HOW OFTEN DID YOU HAVE SIX OR MORE DRINKS ON ONE OCCASION IN THE PAST YEAR?LESS THAN MONTHLY (1 POINT) POINTS2 INTERPRETATIONNEGATIVE RECREATIONAL DRUG USE DRUG USE?NO CAFFEINE CAFFEINE USE?YES HOW OFTEN AND HOW MUCH? 2 CUPS PER DAY SEXUAL HX HAD SEX IN THE LAST 12 MONTHS (VAGINAL, ORAL, OR ANAL)?NO HAVE YOU EVER HAD AN STD?NO HIV / HEP-C SCREENING HIV TEST OFFERED TO PATIENT:YES DATE OFFERED:03/02/2018 TEST ACCEPTED:NO REASON:PATIENT DECLINED BROCHURE PROVIDED TO PATIENTNO HEP-C TEST OFFERED TO PATIENT:YES DATE OFFERED:03/02/2018 TEST ACCEPTED:NO REASON:PATIENT DECLINED TAOIST [id number] NONE LANGUAGE LANGUAGES SPOKEN:GERMAN EDUCATION LEVEL OF EDUCATION:COLLEGE LEARNING BARRIERS / SPECIAL NEEDS CHANGE FROM LAST VISIT?NO BARRIERS TO LEARNING?NO HEARING IMPAIRED?NO VISION IMPAIRED?NO COGNITIVELY IMPAIRED?NO READINESS TO LEARN?YES LEARNING PREFERENCES?NO LEARNING CAPABILITIES PRESENT?YES EMOTIONAL BARRIERS?NO SPECIAL DEVICES?NO DOLL WIG MAKER ROOTED HAIR NEEDED?NO DOMESTIC VIOLENCE DO YOU FEEL SAFE IN YOUR ENVIRONMENT?YES 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 DIET: REGULAR, UNFORTUNATELY EATING MORE PROCESSED FOOD THAN SHE SHOULD. EXERCISE: WALKS DAILY. MARITAL STATUS: SINGLE. TODAY'S VISITNOTES - PFS REFERRAL NEEDED?NO CLERGY REFERRAL NEEDED?NO PUBLIC HEALTH REFERRAL NEEDED?NO WAS THE PROVIDER NOTIFIED OF ANY PERTINENT INFO? N/A HAS THE PATIENT BEEN EDUCATED REGARDING HIS/HER PLAN OF CARE?YES HAS THE PATIENT BEEN EDUCATED REGARDING PAIN, THE RISK FOR PAIN, THE IMPORTANCE OF EFFECTIVE PAIN MANAGEMENT, AND THE PAIN ASSESSMENT PROCESS?YES ADVANCE DIRECTIVE ADVANCE DIRECTIVE DISCUSSED WITH PATIENT:YES HCP JER-PAOLA GIBBONS [phone] 05/16/18 0900 REVIEWED WITH PT. AD01/31/19 REVIEWED WITH PT. AD06/14/19 REVIEWED WITH PT. ANAID WITH PATIENT 11/14/2019 0933 JS. REVIEW OF SYSTEMS CONSTITUTIONAL: ANY RECENT FEVER NO . CHILLS NO . WEIGHT CHANGE OF UNKNOWN REASONS NO . GASTROENTEROLOGY: NEW UNEXPLAINABLE CHANGES IN BOWEL CONTROL NO . CONSTIPATION NO . GENITOURINARY: ANY NEW CHANGE IN BLADDER CONTROL? NO . NEUROLOGY: NEW ONSET DIZZINESS OR NEUROLOGICAL CHANGES NOT MENTIONED NO . NEW NUMBNESS OR PAIN PATTERNS NOT MENTIONED AND PERTINENT TO TODAY'S VISIT NO . CARDIOLOGY: NEW CHEST PRESSURE NO . PATIENT DENIES NO . RESPIRATORY: UNEXPLAINABLE COUGH NO . NEW SHORTNESS OF BREATH NO . VITAL SIGNS WT 280.6 LBS, WT-KG 127.28 KG, HT 70 IN, BMI 40.26 INDEX, BP 154/74 MM HG, HR 121 /MIN, RR 18 /MIN, TEMP 98.0 F, OXYGEN SAT % 93%, SAFE IN ENV? (Y/N) YES, NA INITIALS AW 1322T.VALERIA HENSON, PATIENT STATED THAT SHE HAS AN APT WITH HER PRIMARY COMING SOON. EXAMINATION GENERAL EXAMINATION: GENERALWALKS WITH A SLOW ANTALGIC GAIT WITH LIMP OVER RIGHT LEG. LUNGS:CLEAR TO AUSCULTATION BILATERALLY, NO WHEEZES, RHONCHI, RALES. HEART:NO MURMURS, REGULAR RATE AND RHYTHM. MUSCULOSKELETAL:WEAKNESS NOTED OVER RIGHT LEG.. ASSESSMENTS CHRONIC PRESCRIPTION OPIATE USE - Z79.899 (PRIMARY) SACROILIITIS, NOT ELSEWHERE CLASSIFIED - M46.1 TREATMENT CHRONIC PRESCRIPTION OPIATE USE REFILL NORCO TABLET, 7.5-325 MG, 1 TABLET NEEDED, ORALLY, 1 TO 2 TAB Q4-6HR PRN PAIN MDD6,CAT D CHRONIC PAIN 3MOS SUPPLY, 90 DAY(S), 540, REFILLS 0 REFILL BACLOFEN TABLET, 20 MG, 1 TABLET WITH FOOD OR MILK, ORALLY, THREE TIMES A DAY, 90 DAY(S), 270 TABLET, REFILLS 1 LAB: URINE TEST GROUP DELBERT SHAW 05/21/2021 2:12:12 PM > LAST DOSE; HYDROCODONE 05/21/2021 VISIT CODES 26608 OFFICE VISIT, EST PT., LEVEL 3. PROCEDURE CODES FA211 ESTABILISHED PATIENT [facility] FACILITY CHARGE DISPOSITION & COMMUNICATION FOLLOW UP 3 MONTHS (REASON: MED MGMNT/REVIEW UTOX) ELECTRONICALLY SIGNED BY JEFF PALACIOS ON 05/21/2021 AT 02:52 PM EDT DISCLAIMER : THIS IS A VISIT SUMMARY EXTRACTED FROM THE [employer] CHART. IT IS NOT A COPY OF THE [employer] PROGRESS NOTE. SHAROND
== END ==
LOC: M PAIN 13:30
PROVIDERS: ATTEND Nurse Practitioner Family
DX: M46.1 Sacroiliitis, not elsewhere classified (principal); G80.1 Spastic diplegic cerebral palsy; I10 Essential (primary) hypertension; F32.9 Major depressive disorder, single episode, unspecified; F41.9 Anxiety disorder, unspecified; F10.11 Alcohol abuse, in remission; E66.9 Obesity, unspecified; Z98.84 Bariatric surgery status; M51.36 Other intervertebral disc degeneration, lumbar region; E78.00 Pure hypercholesterolemia, unspecified; K21.00 Gastro-esophageal reflux disease with esophagitis, without bleeding; J30.9 Allergic rhinitis, unspecified; Z79.899 Other long term (current) drug therapy; Z88.6 Allergy status to analgesic agent; Z79.891 Long term (current) use of opiate analgesic; Z88.8 Allergy status to other drugs, medicaments and biological substances; Z68.41 Body mass index [BMI] 40.0-44.9, adult

== ENCOUNTER → 2021-08-18 | Outpatient (REF) ==
--- NOTE | 2021-08-18 14:26 | REP ---
INDICATION: PAIN. COMPARISON: 10/15/2016 TECHNIQUE: AP and lateral views FINDINGS: There is bilateral marginal osteophytosis status quo. The pedicles are again seen to be intact bilaterally. Vertebral body height and alignment is unchanged. There is disc space narrowing at every level increased from the prior exam. There is anterior lipping at every level status quo. Degenerative facet joint changes are again seen at every level bilaterally particularly L4-5 and L5-S1 and increased from the prior exam. IMPRESSION: Chronic changes seen on this limited exam as described above. <Electronically signed by Avi Ludwig > 08/18/21 [id number]
--- NOTE | 2021-08-18 14:59 | REP ---
INDICATION: PAIN. COMPARISON: 04/04/2006 TECHNIQUE: AP and frog-lateral views FINDINGS: Mild to moderate asymmetric hip joint space narrowing has developed since the last exam. There is no acute fracture, dislocation, or subluxation. There is no evidence of buttressing. IMPRESSION: Chronic changes as described above. <Electronically signed by Avi Ludwig > 08/18/21 [id number]
== END ==
LOC: M PLAIMG 12:32
PROVIDERS: ATTEND Internal Medicine
DX: Z00.00 Encounter for general adult medical examination without abnormal findings (principal)

== ENCOUNTER → 2021-10-02 | Outpatient (CLI) | payer OTHER | LOC: M PAIN 08:45 | PROVIDERS: ATTEND Anesthesiology | DX: M96.1 Postlaminectomy syndrome, not elsewhere classified (principal); G80.2 Spastic hemiplegic cerebral palsy; I10 Essential (primary) hypertension; F32.A Depression, unspecified; F41.9 Anxiety disorder, unspecified; F10.11 Alcohol abuse, in remission; E78.00 Pure hypercholesterolemia, unspecified; M51.36 Other intervertebral disc degeneration, lumbar region; J21.9 Acute bronchiolitis, unspecified; J30.9 Allergic rhinitis, unspecified; Z79.891 Long term (current) use of opiate analgesic; Z79.899 Other long term (current) drug therapy; Z88.6 Allergy status to analgesic agent; Z88.8 Allergy status to other drugs, medicaments and biological substances ==

== ENCOUNTER → 2021-12-31 | Outpatient (CLI) | payer OTHER | LOC: M PAIN 09:45 | PROVIDERS: ATTEND Anesthesiology | DX: M96.1 Postlaminectomy syndrome, not elsewhere classified (principal); G80.9 Cerebral palsy, unspecified; K21.9 Gastro-esophageal reflux disease without esophagitis; Z86.59 Personal history of other mental and behavioral disorders; Z88.6 Allergy status to analgesic agent; Z88.8 Allergy status to other drugs, medicaments and biological substances; E66.01 Morbid (severe) obesity due to excess calories; Z68.41 Body mass index [BMI] 40.0-44.9, adult; Z79.891 Long term (current) use of opiate analgesic; Z79.899 Other long term (current) drug therapy ==

== ENCOUNTER → 2022-05-03 | Outpatient (CLI) | payer OTHER, MEDICAID ==
[2022-05-03 16:09] LABS: HEMATOCRIT 43.8 % (36.0-47.0); HEMOGLOBIN 14.6 g/dl (12.0-15.5); MEAN CORPUSCULAR HEMOGLOBIN 31.1 pg (27.0-33.0); MEAN CORPUSCULAR HGB CONC 33.3 g/dl (32.0-36.5); MEAN CORPUSCULAR VOLUME 93.4 fl (80.0-96.0); PLATELET COUNT, AUTOMATED 298 10^3/uL (150-450); RED BLOOD COUNT 4.69 10^6/uL (4.00-5.40); WHITE BLOOD COUNT 8.1 10^3/uL (4.0-10.0)
[2022-05-03 16:38] LABS: ALT/SGPT 18 U/L (12-78); BILIRUBIN,TOTAL 0.4 MG/DL (0.2-1.0); BLOOD UREA NITROGEN 10 MG/DL (7-18); CALCIUM LEVEL 9.3 MG/DL (8.5-10.1); CARBON DIOXIDE LEVEL 23 MEQ/L (21-32); CHLORIDE LEVEL 111 MEQ/L (98-107); CHOLESTEROL LEVEL 271 MG/DL (<200); CHOLESTEROL RISK RATIO 4.044 (<5); CREATININE FOR GFR 0.95 MG/DL (0.55-1.30); GLOMERULAR FILTRATION RATE > 60.0 (>58); GLUCOSE, FASTING 82 MG/DL (70-100); HDL CHOLESTEROL 67 MG/DL (>40); LDL CHOLESTEROL 176 MG/DL (<100); MAGNESIUM LEVEL 1.8 MG/DL (1.8-2.4); NON-HDL-C 204 MG/DL; POTASSIUM SERUM 4.7 MEQ/L (3.5-5.1); SODIUM LEVEL 141 MEQ/L (136-145); TOTAL PROTEIN 7.4 GM/DL (6.4-8.2); TRIGLYCERIDES LEVEL 142 MG/DL (<150)
[2022-05-03 16:54] LABS: TOTAL 25(OH) VITAMIN D 28.3 NG/ML (30.0-100.0)
== END ==
LOC: M WUC 13:06
PROVIDERS: ATTEND Family Medicine
DX: E83.42 Hypomagnesemia (principal); Z13.220 Encounter for screening for lipoid disorders; F10.21 Alcohol dependence, in remission; E55.9 Vitamin D deficiency, unspecified

== ENCOUNTER → 2022-10-27 | Outpatient (CLI) | payer OTHER | LOC: M PAIN 10:30 | PROVIDERS: ATTEND Anesthesiology | DX: Z51.81 Encounter for therapeutic drug level monitoring (principal); Z79.891 Long term (current) use of opiate analgesic; E78.00 Pure hypercholesterolemia, unspecified; M96.1 Postlaminectomy syndrome, not elsewhere classified; E83.42 Hypomagnesemia; E55.9 Vitamin D deficiency, unspecified; F10.21 Alcohol dependence, in remission; F32.9 Major depressive disorder, single episode, unspecified; I10 Essential (primary) hypertension; G80.1 Spastic diplegic cerebral palsy; Z13.220 Encounter for screening for lipoid disorders; F32.A Depression, unspecified; F41.9 Anxiety disorder, unspecified; E66.9 Obesity, unspecified; M51.36 Other intervertebral disc degeneration, lumbar region; K21.9 Gastro-esophageal reflux disease without esophagitis; J30.9 Allergic rhinitis, unspecified; M25.512 Pain in left shoulder; M54.6 Pain in thoracic spine; Z79.899 Other long term (current) drug therapy; Z88.6 Allergy status to analgesic agent; Z88.8 Allergy status to other drugs, medicaments and biological substances; Z68.42 Body mass index [BMI] 45.0-49.9, adult ==

== ENCOUNTER 2022-12-12 17:16 | Inpatient (IN) | payer MEDICAID, OTHER ==
[~2022-12-12] VITALS: Ht 170.2 cm; Wt 110.0 kg
[~2022-12-12 17:16] MED LIST changes: -HYDR-3716; +HYDR-3716 PO
[2022-12-12 18:03] LABS: HEMATOCRIT 42.5 % (36.0-47.0); HEMOGLOBIN 14.7 g/dl (12.0-15.5); MEAN CORPUSCULAR HEMOGLOBIN 30.8 pg (27.0-33.0); MEAN CORPUSCULAR HGB CONC 34.6 g/dl (32.0-36.5); MEAN CORPUSCULAR VOLUME 88.9 fl (80.0-96.0); PLATELET COUNT, AUTOMATED 333 10^3/uL (150-450); RED BLOOD COUNT 4.78 10^6/uL (4.00-5.40); WHITE BLOOD COUNT 9.5 10^3/uL (4.0-10.0)
[2022-12-12 18:22] LABS: ETHYL ALCOHOL (ETHANOL) < 0.003 % (0.000-0.010)
[2022-12-12 18:24] LABS: ACETAMINOPHEN LEVEL < 2.0 UG/ML (10.0-20.0); SALICYLATE LEVEL < 3.0 MG/DL (<30)
[2022-12-12 18:28] LABS: ALBUMIN 4.6 G/DL (3.2-5.2); ALKALINE PHOSPHATASE 75 U/L (46-116); ALT/SGPT 22 U/L (7.0-40); AST/SGOT 11 U/L (<34); BILIRUBIN,DIRECT 0.2 MG/DL (<0.4); BILIRUBIN,TOTAL 0.6 MG/DL (0.3-1.2); BLOOD UREA NITROGEN 16 MG/DL (9-23); CALCIUM LEVEL 9.2 MG/DL (8.5-10.1); CARBON DIOXIDE LEVEL 16 MMOL/L (20-31); CHLORIDE LEVEL 103 MMOL/L (98-107); CREATININE FOR GFR 1.05 MG/DL (0.55-1.30); GLOMERULAR FILTRATION RATE > 60.0 (>58); GLUCOSE, FASTING 100 MG/DL (60-100); POTASSIUM SERUM 4.1 MMOL/L (3.5-5.1); SODIUM LEVEL 134 MMOL/L (136-145); THYROID STIMULATING HORMONE 4.378 uIU/ML (0.55-4.78); TOTAL PROTEIN 7.6 G/DL (5.7-8.2)
[2022-12-12 18:30] LABS: HCG, SERUM QUALITATIVE NEGATIVE (NEGATIVE)
[2022-12-12] MEDS ORDERED: LORazepam 2 MG TAB PO ONE (19:35)
[2022-12-12 23:28] LABS: AMPHETAMINES LEVEL URINE NEGATIVE (NEGATIVE); BARBITURATES URINE NEGATIVE (NEGATIVE); BENZODIAZEPINES URINE NEGATIVE (NEGATIVE); COCAINE METABOLITE URINE NEGATIVE (NEGATIVE); METHADONE URINE NEGATIVE (NEGATIVE); OPIATES URINE NEGATIVE (NEGATIVE); PHENCYCLIDINE URINE NEGATIVE (NEGATIVE)
[2022-12-12 23:37] LABS: CANNABINOIDS URINE POSITIVE (NEGATIVE)
[2022-12-13] MEDS ORDERED: BUSP30TA PO (03:06)
[2022-12-13] MEDS ORDERED: OMEP40CA5 PO (03:06)
[2022-12-13] MEDS ORDERED: BUPR75TA5 PO (03:06)
[2022-12-13] MEDS ORDERED: CLON0.5T2 PO (03:06)
[2022-12-13] MEDS ORDERED: VENL75CA2 PO ×2 (03:06)
[2022-12-13] MEDS ORDERED: BACL1TAB9 PO (03:06)
[2022-12-13] MEDS ORDERED: MED REC COMMENT (03:07)
[2022-12-13] MEDS ORDERED: HOME MED LIST COMPLETE! XX SCH (03:10)
[2022-12-13] MEDS ORDERED: clonazePAM 0.5 MG TAB PO PRN (11:05)
[2022-12-13] MEDS: buPROPion 75 MG TAB PO SCH ×2 (11:15→21:20)
[2022-12-13] MEDS ORDERED: OLANZapine ORAL DISINTEGRATING TAB 5MG PO PRN (20:10)
[2022-12-13] MEDS ORDERED: ACETAMINOPHEN TAB 650MG DOSE (2X325MG) PO PRN (20:10)
[2022-12-13] MEDS ORDERED: traZODone 50 MG TAB PO PRN (20:10)
[2022-12-13] MEDS: clonazePAM 0.5 MG TAB PO PRN (21:20)
[2022-12-14 02:38] VITALS: BP 158/98
[2022-12-14 06:50] VITALS: BP 137/63
[2022-12-14] MEDS: buPROPion 75 MG TAB PO SCH ×2 (10:08→21:42)
[2022-12-14] MEDS: clonazePAM 0.5 MG TAB PO PRN (10:08)
[2022-12-14] MEDS: ATORVASTATIN 20 MG TAB PO SCH (11:51)
[2022-12-14 16:22] VITALS: BP 134/84
[2022-12-14] MEDS ORDERED: OLANZapine 5 MG TAB PO SCH (21:00)
[2022-12-15] MEDS: clonazePAM 0.5 MG TAB PO PRN (06:10)
[2022-12-15 06:36] VITALS: BP 135/85
[2022-12-15 07:42] LABS: CHOLESTEROL RISK RATIO 3.01 (<5); HDL CHOLESTEROL 52.1 MG/DL (>40); LDL CHOLESTEROL 88.9 MG/DL (<100)
[2022-12-15 08:57] VITALS: BP 135/85
[2022-12-15] MEDS: buPROPion 75 MG TAB PO SCH (08:58)
[2022-12-15] MEDS: ATORVASTATIN 20 MG TAB PO SCH (08:58)
[2022-12-15] MEDS ORDERED: OLAN1TAB16 PO ×2 (11:46→11:50)
[2022-12-15] MEDS ORDERED: CLON0.5T2 PO ×2 (11:46→11:50)
[2022-12-15] MEDS ORDERED: BUPR75TA5 PO ×2 (11:46→11:50)
== END 2022-12-15 13:52 | disposition home or self-care (01) | DRG 751 ==
LOC: M ED 17:16 → M ED INP 12-13 20:09 → M PSY 12-14 01:33
PROVIDERS: ADMIT Psychiatry & Neurology Psychiatry; ATTEND Student in an Organized Health Care Education/Training Program
DX: F32.3 Major depressive disorder, single episode, severe with psychotic features (principal); I10 Essential (primary) hypertension; E78.5 Hyperlipidemia, unspecified; Z79.899 Other long term (current) drug therapy; Z88.6 Allergy status to analgesic agent; Z88.8 Allergy status to other drugs, medicaments and biological substances; Z81.1 Family history of alcohol abuse and dependence; Z81.8 Family history of other mental and behavioral disorders

== ENCOUNTER → 2022-12-22 | Outpatient (CLI) | payer OTHER ==
[~2022-12-22] MED LIST changes: +BACL1TAB9 PO; +BUPR75TA5 PO; +BUSP30TA PO; +CLON0.5T2 PO; +MED REC COMMENT; +OLAN1TAB16 PO; +OMEP40CA5 PO; +VENL75CA2 PO
== END ==
LOC: M PAIN 09:30
PROVIDERS: ATTEND Anesthesiology
DX: M96.1 Postlaminectomy syndrome, not elsewhere classified (principal); G80.1 Spastic diplegic cerebral palsy; I10 Essential (primary) hypertension; F32.A Depression, unspecified; F41.9 Anxiety disorder, unspecified; E66.9 Obesity, unspecified; E78.00 Pure hypercholesterolemia, unspecified; K21.9 Gastro-esophageal reflux disease without esophagitis; J30.9 Allergic rhinitis, unspecified; M25.512 Pain in left shoulder; M54.6 Pain in thoracic spine; Z98.84 Bariatric surgery status; Z68.41 Body mass index [BMI] 40.0-44.9, adult; Z88.6 Allergy status to analgesic agent; Z88.8 Allergy status to other drugs, medicaments and biological substances; Z79.899 Other long term (current) drug therapy; Z79.891 Long term (current) use of opiate analgesic

== ENCOUNTER → 2022-12-28 | Outpatient (CLI) | payer OTHER ==
[2022-12-28 11:53] LABS: CORTISOL AM 3.3 UG/DL (4.3-22.4)
[2022-12-28 11:57] LABS: FREE T4 1.11 NG/DL (0.89-1.76)
[2022-12-28 11:58] LABS: THYROID STIMULATING HORMONE 1.758 uIU/ML (0.55-4.78)
== END ==
LOC: M LAB 10:49
PROVIDERS: ATTEND Student in an Organized Health Care Education/Training Program
DX: F41.8 Other specified anxiety disorders (principal); E66.8 Other obesity

== ENCOUNTER → 2023-02-02 | Outpatient (CLI) | payer OTHER | LOC: M PAIN 08:00 | PROVIDERS: ATTEND Anesthesiology | DX: M96.1 Postlaminectomy syndrome, not elsewhere classified (principal); G80.2 Spastic hemiplegic cerebral palsy; I10 Essential (primary) hypertension; F32.A Depression, unspecified; F41.9 Anxiety disorder, unspecified; F10.11 Alcohol abuse, in remission; M51.36 Other intervertebral disc degeneration, lumbar region; E78.00 Pure hypercholesterolemia, unspecified; K21.9 Gastro-esophageal reflux disease without esophagitis; Z79.891 Long term (current) use of opiate analgesic; Z79.899 Other long term (current) drug therapy; Z88.6 Allergy status to analgesic agent; Z88.8 Allergy status to other drugs, medicaments and biological substances ==

== ENCOUNTER → 2023-05-11 | Outpatient (CLI) | payer OTHER | LOC: M PAIN 08:15 | PROVIDERS: ATTEND Anesthesiology | DX: M96.1 Postlaminectomy syndrome, not elsewhere classified (principal); M51.16 Intervertebral disc disorders with radiculopathy, lumbar region; G89.29 Other chronic pain; G80.2 Spastic hemiplegic cerebral palsy; I10 Essential (primary) hypertension; F32.A Depression, unspecified; J30.9 Allergic rhinitis, unspecified; F41.9 Anxiety disorder, unspecified; E78.00 Pure hypercholesterolemia, unspecified; K21.9 Gastro-esophageal reflux disease without esophagitis; Z79.899 Other long term (current) drug therapy; Z98.84 Bariatric surgery status; Z79.891 Long term (current) use of opiate analgesic; Z88.6 Allergy status to analgesic agent; Z88.8 Allergy status to other drugs, medicaments and biological substances ==

== ENCOUNTER → 2023-05-31 | Outpatient (CLI) | payer OTHER ==
[2023-05-31 17:25] LABS: BLOOD UREA NITROGEN 6 MG/DL (9-23); CREATININE FOR GFR 0.91 MG/DL (0.55-1.30); GLOMERULAR FILTRATION RATE > 60.0 (>58)
== END ==
LOC: M WUC 11:13
PROVIDERS: ATTEND Anesthesiology
DX: M96.1 Postlaminectomy syndrome, not elsewhere classified (principal)

== ENCOUNTER → 2023-05-31 | Outpatient (CLI) | payer OTHER ==
[2023-05-31 17:25] LABS: THYROID STIMULATING HORMONE 1.464 uIU/ML (0.55-4.78)
[2023-05-31 17:26] LABS: ALKALINE PHOSPHATASE 62 U/L (46-116); ALT/SGPT 16 U/L (7.0-40); AST/SGOT < 8 U/L (<34); BILIRUBIN,TOTAL 0.4 MG/DL (0.3-1.2); BLOOD UREA NITROGEN 5 MG/DL (9-23); CALCIUM LEVEL 9.8 MG/DL (8.5-10.1); CARBON DIOXIDE LEVEL 22 MMOL/L (20-31); CHLORIDE LEVEL 110 MMOL/L (98-107); CHOLESTEROL LEVEL 139 MG/DL (<200); CHOLESTEROL RISK RATIO 2.34 (<5); CREATININE FOR GFR 0.96 MG/DL (0.55-1.30); GLOMERULAR FILTRATION RATE > 60.0 (>58); GLUCOSE, FASTING 80 MG/DL (60-100); HDL CHOLESTEROL 59.2 MG/DL (>40); NON-HDL-C 79.8 MG/DL; POTASSIUM SERUM 4.2 MMOL/L (3.5-5.1); SODIUM LEVEL 145 MMOL/L (136-145); TOTAL PROTEIN 6.5 G/DL (5.7-8.2); TRIGLYCERIDES LEVEL 104 MG/DL (<150)
[2023-05-31 17:28] LABS: VITAMIN B12 LEVEL 506 PG/ML (211-911)
[2023-05-31 17:33] LABS: FOLATE 11.23 NG/ML (>5.4)
== END ==
LOC: M WUC 11:10
PROVIDERS: ATTEND Family Medicine
DX: E78.00 Pure hypercholesterolemia, unspecified (principal); Z13.29 Encounter for screening for other suspected endocrine disorder; I10 Essential (primary) hypertension; F10.21 Alcohol dependence, in remission

== ENCOUNTER → 2023-06-09 | Outpatient (CLI) | payer OTHER ==
[~2023-06-09] MED LIST changes: +PROHANCE 279.3MG/ML 15ML VIAL As Ordered ONE; +PROHANCE 279.3MG/ML 5ML VIAL As Ordered ONE
== END ==
LOC: M RAD 09:57
PROVIDERS: ATTEND Anesthesiology
DX: M96.1 Postlaminectomy syndrome, not elsewhere classified (principal)
CPT/HCPCS: 72158; A9576

== ENCOUNTER → 2023-08-16 | Outpatient (CLI) | payer OTHER ==
[~2023-08-16] MED LIST changes: +ISOVUE-M 300 61% 15ML VIAL As Ordered ONE; +LIDOCAINE 1% SDV 30ML VIAL As Ordered ONE; +NORCO, ANEXSIA 5/325MG TABLET (HYDROcodone/ACETAMINOPHEN) As Ordered ONE; -PROHANCE 279.3MG/ML 15ML VIAL As Ordered ONE; -PROHANCE 279.3MG/ML 5ML VIAL As Ordered ONE; +diazePAM 5MG TABLET As Ordered ONE; +methylPREDNISolone SUSP 40MG/ML 1ML VIAL (DEPO MEDROL) As Ordered ONE
== END ==
LOC: M PAIN 08:30
PROVIDERS: ATTEND Anesthesiology
DX: M96.1 Postlaminectomy syndrome, not elsewhere classified (principal); G80.1 Spastic diplegic cerebral palsy; I10 Essential (primary) hypertension; F32.A Depression, unspecified; F41.9 Anxiety disorder, unspecified; E66.9 Obesity, unspecified; Z98.84 Bariatric surgery status; E78.00 Pure hypercholesterolemia, unspecified; M51.36 Other intervertebral disc degeneration, lumbar region; K21.9 Gastro-esophageal reflux disease without esophagitis; J30.9 Allergic rhinitis, unspecified; Z79.891 Long term (current) use of opiate analgesic; Z79.899 Other long term (current) drug therapy; Z88.6 Allergy status to analgesic agent; Z88.8 Allergy status to other drugs, medicaments and biological substances; Z68.38 Body mass index [BMI] 38.0-38.9, adult
CPT/HCPCS: 62323; J1030; Q9967

== ENCOUNTER → 2023-09-01 | Outpatient (REF) | payer OTHER ==
[~2023-09-01] MED LIST changes: -ISOVUE-M 300 61% 15ML VIAL As Ordered ONE; -LIDOCAINE 1% SDV 30ML VIAL As Ordered ONE; -NORCO, ANEXSIA 5/325MG TABLET (HYDROcodone/ACETAMINOPHEN) As Ordered ONE; -diazePAM 5MG TABLET As Ordered ONE; -methylPREDNISolone SUSP 40MG/ML 1ML VIAL (DEPO MEDROL) As Ordered ONE
== END ==
LOC: M SFHCPLAZ 17:26
PROVIDERS: ATTEND Family Medicine
DX: Z12.4 Encounter for screening for malignant neoplasm of cervix (principal); N89.8 Other specified noninflammatory disorders of vagina

== ENCOUNTER → 2023-10-19 | Outpatient (CLI) | payer OTHER, MEDICARE | LOC: M PAIN 09:00 | PROVIDERS: ATTEND Anesthesiology | DX: M96.1 Postlaminectomy syndrome, not elsewhere classified (principal); G80.1 Spastic diplegic cerebral palsy; I10 Essential (primary) hypertension; F32.A Depression, unspecified; M25.512 Pain in left shoulder; M54.6 Pain in thoracic spine; Z79.899 Other long term (current) drug therapy; Z88.6 Allergy status to analgesic agent; Z88.8 Allergy status to other drugs, medicaments and biological substances ==

== ENCOUNTER → 2023-11-09 | Outpatient (CLI) | payer OTHER | LOC: M RAD 09:39 | PROVIDERS: ATTEND Neurological Surgery | DX: M48.062 Spinal stenosis, lumbar region with neurogenic claudication (principal) ==

== ENCOUNTER → 2023-12-21 | Outpatient (CLI) | payer MEDICARE, MEDICAID | LOC: M PAIN 09:15 | PROVIDERS: ATTEND Anesthesiology | DX: M96.1 Postlaminectomy syndrome, not elsewhere classified (principal); G89.29 Other chronic pain; M54.50 Low back pain, unspecified; G80.1 Spastic diplegic cerebral palsy; F32.A Depression, unspecified; F41.9 Anxiety disorder, unspecified; E66.9 Obesity, unspecified; E78.00 Pure hypercholesterolemia, unspecified; K21.9 Gastro-esophageal reflux disease without esophagitis; Z79.899 Other long term (current) drug therapy; Z88.6 Allergy status to analgesic agent; Z88.8 Allergy status to other drugs, medicaments and biological substances; Z68.37 Body mass index [BMI] 37.0-37.9, adult ==

== ENCOUNTER → 2024-03-08 | Outpatient (CLI) | payer MEDICARE, MEDICAID ==
[~2024-03-08] MED LIST changes: +ISOVUE-M 300 61% 15ML VIAL As Ordered ONE; +LIDOCAINE 1% SDV 30ML VIAL As Ordered ONE; +NORCO, ANEXSIA 5/325MG TABLET (HYDROcodone/ACETAMINOPHEN) As Ordered ONE; +diazePAM 5MG TABLET As Ordered ONE; +methylPREDNISolone SUSP 40MG/ML 1ML VIAL (DEPO MEDROL) As Ordered ONE
== END ==
LOC: M PAIN 08:30
PROVIDERS: ATTEND Anesthesiology
DX: M51.16 Intervertebral disc disorders with radiculopathy, lumbar region (principal); G80.1 Spastic diplegic cerebral palsy; I10 Essential (primary) hypertension; F31.9 Bipolar disorder, unspecified; F41.9 Anxiety disorder, unspecified; E66.9 Obesity, unspecified; Z98.84 Bariatric surgery status; E78.00 Pure hypercholesterolemia, unspecified; K21.9 Gastro-esophageal reflux disease without esophagitis; Z79.899 Other long term (current) drug therapy; Z88.6 Allergy status to analgesic agent; Z88.8 Allergy status to other drugs, medicaments and biological substances; Z68.36 Body mass index [BMI] 36.0-36.9, adult
CPT/HCPCS: 62323; J1010; Q9967

== ENCOUNTER → 2024-05-09 | Outpatient (CLI) | payer MEDICARE, MEDICAID ==
[~2024-05-09] MED LIST changes: -ISOVUE-M 300 61% 15ML VIAL As Ordered ONE; -LIDOCAINE 1% SDV 30ML VIAL As Ordered ONE; -NORCO, ANEXSIA 5/325MG TABLET (HYDROcodone/ACETAMINOPHEN) As Ordered ONE; -diazePAM 5MG TABLET As Ordered ONE; -methylPREDNISolone SUSP 40MG/ML 1ML VIAL (DEPO MEDROL) As Ordered ONE
== END ==
LOC: M PAIN 09:45
PROVIDERS: ATTEND Anesthesiology
DX: G89.29 Other chronic pain (principal); M96.1 Postlaminectomy syndrome, not elsewhere classified; I10 Essential (primary) hypertension; Z79.02 Long term (current) use of antithrombotics/antiplatelets; Z79.3 Long term (current) use of hormonal contraceptives; Z79.891 Long term (current) use of opiate analgesic; Z79.899 Other long term (current) drug therapy; Z88.6 Allergy status to analgesic agent

== ENCOUNTER → 2024-07-18 | Outpatient (CLI) | payer MEDICARE, MEDICAID | LOC: M PAIN 09:30 | PROVIDERS: ATTEND Anesthesiology | DX: M51.16 Intervertebral disc disorders with radiculopathy, lumbar region (principal); M96.1 Postlaminectomy syndrome, not elsewhere classified; G89.29 Other chronic pain; G80.1 Spastic diplegic cerebral palsy; I10 Essential (primary) hypertension; F32.A Depression, unspecified; F41.9 Anxiety disorder, unspecified; F10.11 Alcohol abuse, in remission; E78.00 Pure hypercholesterolemia, unspecified; K21.9 Gastro-esophageal reflux disease without esophagitis; Z79.899 Other long term (current) drug therapy; Z88.6 Allergy status to analgesic agent; Z88.8 Allergy status to other drugs, medicaments and biological substances ==

== ENCOUNTER → 2024-08-31 | Outpatient (CLI) | payer MEDICARE, MEDICAID ==
[~2024-08-31] MED LIST changes: +ISOVUE-M 300 61% 15ML VIAL As Ordered ONE; +LIDOCAINE 1% SDV 30ML VIAL As Ordered ONE; +NORCO, ANEXSIA 5/325MG TABLET (HYDROcodone/ACETAMINOPHEN) As Ordered ONE; +dexAMETHasone 10MG/1ML VIAL PRES.FREE As Ordered ONE; +diazePAM 5MG TABLET As Ordered ONE
== END ==
LOC: M PAIN 10:00
PROVIDERS: ATTEND Anesthesiology
DX: M51.16 Intervertebral disc disorders with radiculopathy, lumbar region (principal); G89.29 Other chronic pain; G80.2 Spastic hemiplegic cerebral palsy; I10 Essential (primary) hypertension; F32.A Depression, unspecified; E78.00 Pure hypercholesterolemia, unspecified; K21.9 Gastro-esophageal reflux disease without esophagitis; Z79.899 Other long term (current) drug therapy; Z88.6 Allergy status to analgesic agent; Z88.8 Allergy status to other drugs, medicaments and biological substances
CPT/HCPCS: 62323; J1100; Q9967

== ENCOUNTER → 2024-12-11 | Outpatient (CLI) | payer MEDICARE, MEDICAID ==
[~2024-12-11] MED LIST changes: -ISOVUE-M 300 61% 15ML VIAL As Ordered ONE; -LIDOCAINE 1% SDV 30ML VIAL As Ordered ONE; -NORCO, ANEXSIA 5/325MG TABLET (HYDROcodone/ACETAMINOPHEN) As Ordered ONE; -dexAMETHasone 10MG/1ML VIAL PRES.FREE As Ordered ONE; -diazePAM 5MG TABLET As Ordered ONE
== END ==
LOC: M PAIN 10:15
PROVIDERS: ATTEND Anesthesiology
DX: M51.16 Intervertebral disc disorders with radiculopathy, lumbar region (principal); G89.29 Other chronic pain; M96.1 Postlaminectomy syndrome, not elsewhere classified; Z79.899 Other long term (current) drug therapy; Z88.6 Allergy status to analgesic agent; Z88.8 Allergy status to other drugs, medicaments and biological substances

== ENCOUNTER → 2025-01-29 | Outpatient (CLI) | payer MEDICARE, MEDICAID ==
[2025-01-29 15:34] LABS: HEMATOCRIT 43.6 % (36.0-47.0); MEAN CORPUSCULAR HEMOGLOBIN 31.6 pg (27.0-33.0); MEAN CORPUSCULAR HGB CONC 34.4 g/dl (32.0-36.5); PLATELET COUNT, AUTOMATED 180 10^3/uL (150-450); RED BLOOD COUNT 4.74 10^6/uL (4.00-5.40); WHITE BLOOD COUNT 6.4 10^3/uL (4.0-10.0)
[2025-01-29 15:43] LABS: FOLATE 16.2 NG/ML (>5.4)
== END ==
LOC: M PLALAB 11:45
PROVIDERS: ATTEND Nurse Practitioner Family
DX: F10.21 Alcohol dependence, in remission (principal); E55.9 Vitamin D deficiency, unspecified

== ENCOUNTER → 2025-06-19 | Outpatient (REF) | payer MEDICARE, MEDICAID ==
[~2025-06-19] MED LIST changes: +SLOW1TAB3 PO; -SLOWTAB2 PO
[2025-06-19 17:30] LABS: ALT/SGPT 41.0 U/L (7.0-40); AST/SGOT 12.0 U/L (<34); CALCIUM LEVEL 9.3 MG/DL (8.5-10.1); CARBON DIOXIDE LEVEL 26.0 MMOL/L (20-31); CHLORIDE LEVEL 107.0 MMOL/L (98-107); CHOLESTEROL LEVEL 150.0 MG/DL (<200); CHOLESTEROL RISK RATIO 2.45 (<5); CREATININE FOR GFR 0.92 MG/DL (0.55-1.30); GLOMERULAR FILTRATION RATE 78.7 (>58); LDL CHOLESTEROL 72.1 MG/DL (<100); NON-HDL-C 88.9 MG/DL; POTASSIUM SERUM 3.8 MMOL/L (3.5-5.1); SODIUM LEVEL 143.0 MMOL/L (136-145); TRIGLYCERIDES LEVEL 84.0 MG/DL (<150)
[2025-06-19 17:33] LABS: LUTEINIZING HORMONE 41.7 mIU/ML
[2025-06-19 18:19] LABS: ESTIMATED AVERAGE GLUCOSE 88.0 MG/DL (60-110)
== END ==
LOC: M SFHCCAPE 07:56
PROVIDERS: ATTEND Family Medicine
DX: N95.1 Menopausal and female climacteric states (principal); Z13.1 Encounter for screening for diabetes mellitus; Z13.220 Encounter for screening for lipoid disorders